=== PATIENT | male | born 1940 | race Caucasian/White ===

== ENCOUNTER 2018-07-05 13:47 | Emergency (ER) | payer MEDICAID, MEDICARE ==
--- NOTE | 2018-07-05 15:55 | ED ---
Throat Pain/Nasal Congestion - HPI Summary HPI Summary: 77-year-old male presents with a week's worth of right-sided jaw pain. He states that the pain is worst when he chews. He has been chewing more frequently. He states the pain seemed to radiate superficially around his ear. He denies any headache. No dizziness. No chest pain or shortness breath. No weakness or numbness into his arms. Denies any midline neck pain. No injury. Pain is not worse with head movement. He states that popping or locking in his jaw. He did see his dentist last week for dental cleaning. He denies any dental pain. He does have follow-up with the dentist next week. He has been taking Tylenol for his pain. He states pain is worse when he talks. Denies any change in vision or hearing. - History of Current Complaint Chief Complaint: EDNeckComplaint Time Seen by Provider: 07/05/18 15:03 - Allergies/Home Medications Allergies/Adverse Reactions: Allergies Allergy/AdvReac Type Severity Reaction Status Date / Time No Known Allergies Allergy Verified 07/05/18 15:37 Home Medications: Home Medications Acetaminophen TAB* [Tylenol TAB*] 325 mg PO Q4H PRN 07/05/18 [History Confirmed 07/05/18] Aspirin 81 mg CHEW TAB* [Aspirin Low Dose TAB*] 81 mg PO DAILY 07/05/18 [ History Confirmed 07/05/18] Tamsulosin CAP* [Flomax CAP*] 0.4 mg PO DAILY 07/05/18 [History Confirmed ] PMH/Surg Hx/FS Hx/Imm Hx Endocrine/Hematology History: Denies: Hx Anticoagulant Therapy Cardiovascular History: Denies: Hx Hypertension - Immunization History Immunizations Up to Date: Yes Infectious Disease History: No Infectious Disease History: Denies: Traveled Outside the [place] in Last 30 Days - Family History Known Family History: Positive: Cardiac Disease - Social History Alcohol Use: None Substance Use Type: Reports: None Smoking Status (MU): Former Smoker Review of Systems Negative: Fever Positive: Other - right side jaw pain Negative: Chest Pain Negative: Shortness Of Breath All Other Systems Reviewed And Are Negative: Yes Physical Exam Triage Information Reviewed: Yes Vital Signs On Initial Exam: Initial Vitals Temp Pulse Resp BP Pulse Ox 98.3 F 89 20 128/110 97 07/05/18 13:59 07/05/18 13:59 07/05/18 13:59 07/05/18 13:59 07/05/18 13:59 Vital Signs Reviewed: Yes Appearance: Positive: Well-Appearing Skin: Positive: Warm, Dry Head/Face: Positive: Normal Head/Face Inspection, TMJ Tenderness - right. Negative: Temporal Artery Tenderness, Scalp Eyes: Positive: Normal, EOMI, AVA, Conjunctiva Clear ENT: Positive: Normal ENT inspection, Pharynx normal, Nasal drainage Dental: Positive: Gross Decay/Caries @ - throughout Neck: Positive: Supple, Nontender, No Lymphadenopathy, Other: - tenderness greatest over TMJ when opens jaw and feel popping present Respiratory/Lung Sounds: Positive: Clear to Auscultation, Breath Sounds Present Cardiovascular: Positive: Normal, RRR Musculoskeletal: Positive: Strength/ROM Intact - neck and upper extremities, Other - good engagement executive strength Neurological: Positive: Normal, Reflexes Intact - biceps Psychiatric: Positive: Normal Diagnostics - Vital Signs Vital Signs Temp Pulse Resp BP Pulse Ox 07/05/18 13:59 98.3 F 89 20 128/110 97 - Laboratory Lab Statement: Any lab studies that have been ordered have been reviewed, and results considered in the medical decision making process. EENT Course/Dx - Course Course Of Treatment: 77-year-old male presents with a week's worth of right- sided jaw pain. He states that the pain is worst when he chews. He has been chewing more frequently. He states the pain seemed to radiate superficially around his ear. He denies any headache. No dizziness. No chest pain or shortness breath. No weakness or numbness into his arms. Denies any midline neck pain. No injury. Pain is not worse with head movement. He states that popping or locking in his jaw. He did see his dentist last week for dental cleaning. He denies any dental pain. He does have follow-up with the dentist next week. He has been taking Tylenol for his pain. He states pain is worse when he talks. Denies any change in vision or hearing. On exam has no tenderness over the temporal artery. Normal neuro exam. Tenderness over TMJ. Pain with movement of jaw. No focal deficits. Do not suspect dissection or temporal arterities. Belly pain is likely due to TMJ. We'll have follow-up with dentist and primary. Patient understands and agrees with plan. - Differential Diagnoses Differential Diagnoses: Temporal Arteritis, TMJ Syndrome, Other - disecction - Diagnoses Provider Diagnoses: Jaw pain Discharge - Sign-Out/Discharge Documenting (check all that apply): Patient Departure - Discharge Plan Condition: Good Disposition: HOME Patient Education Materials: Temporomandibular Disorder (ED) Referrals: Mariusz Freeman MD [Primary Care Provider] - Additional Instructions: eat softer foods Take acetaminophen every 6 hours as needed for pain Follow up with dentist as scheduled Follow up with primary within 5 days as blood pressure is elevated at this visit Return to ED if develop any new or worsening symptoms - Billing Disposition and Condition Condition: GOOD Disposition: Home
[2018-07-05 16:13] VITALS: BP 146/90
== END 2018-07-05 16:11 | disposition home or self-care (01) ==
LOC: ED 13:47
DX: R68.84 Jaw pain (principal); Z87.891 Personal history of nicotine dependence
CPT/HCPCS: 99282

== ENCOUNTER 2018-07-17 11:50 | Inpatient (IN) | payer MEDICARE ==
[2018-07-17 12:36] LABS: ABS Basophils 0 10^3/ul (0-0.2); ABS Eosinophils 0.1 10^3/ul (0-0.6); ABS Monocytes 0.4 10^3/ul (0-0.8); ABS Neutrophils 6.4 10^3/ul (1.5-7.7); ABS Nucleated RBC 0 10^3/ul; Eosinophil % 0.7 % (0-6); Hematocrit 47 % (42-52); Hemoglobin 16.2 g/dl (14.0-18.0); Lymphocyte % 12.7 % (25-47); Mean Corpuscular HGB Conc 35 g/dl (31-36); Mean Corpuscular Hemoglobin 34 pg (27-31); Mean Corpuscular Volume 98 fL (80-94); Mean Platelet Volume 6.7 um3 (7.4-10.4); Nucleated Red Blood Cells % 0.1; Platelet Count 382 10^3/ul (150-450); Red Blood Count 4.73 10^6/ul (4.00-5.40); Red Cell Distribution Width 13 % (10.5-15); White Blood Count 7.9 10^3/ul (3.5-10.8)
[2018-07-17 12:45] LABS: INR 0.98 (0.77-1.02)
[2018-07-17 12:52] LABS: EGFR Non-African American 91.9 (>60)
--- NOTE | 2018-07-17 12:55 | RAD ---
Indication: Facial droop. CT of the brain performed without IV contrast. Ventriculomegaly consistent with central atrophy is noted. No midline shift is noted. Prominent extra-axial spaces are noted. There is no evidence of intracranial mass or hemorrhage. No other high or low density lesions are identified. Mastoid air cells and paranasal sinuses are otherwise unremarkable. IMPRESSION: Central and cortical atrophy. No intracranial mass or hemorrhage is noted.
--- NOTE | 2018-07-17 13:02 | ED ---
Neurological HPI - HPI Summary HPI Summary: This patient is a 77 year old M presenting to [facility] with a chief complaint of a neurological deficit since 30 hours ago. Patient reports right sided jaw pain ( 10 days ago), neck pain, right facial droop (30 hours ago), slurred speech ( yesterday), and difficulty putting a spoon in his mouth (yesterday). Patient denies difficulty moving his right arm. - History of Current Complaint Chief Complaint: EDNeurologicalDeficit Stated Complaint: RT SIDE FACIAL NUMBNESS Time Seen by Provider: 07/17/18 12:04 Hx Obtained From: Patient Onset/Duration: Sudden Onset, Started days ago - 30 hours ago, Still Present Neurological Deficit Location: Generalized - Loss of coordination, Facial - Facial droop Pain Intensity: 0 Associated Signs and Symptoms: Positive: Pain - Right sided jaw pain and neck pain, Impaired Speech - Slurred speech - Allergy/Home Medications Allergies/Adverse Reactions: Allergies Allergy/AdvReac Type Severity Reaction Status Date / Time No Known Allergies Allergy Verified 07/17/18 12:20 Home Medications: Home Medications Finasteride TAB* [Proscar TAB*] 5 mg PO DAILY 07/17/18 [History Confirmed ] Gabapentin 300 mg PO TID 07/17/18 [History Confirmed 07/17/18] PMH/Surg Hx/FS Hx/Imm Hx Endocrine/Hematology History: Denies: Hx Anticoagulant Therapy Cardiovascular History: Denies: Hx Hypertension Infectious Disease History: No Infectious Disease History: Denies: Traveled Outside the [place] in Last 30 Days - Family History Known Family History: Positive: Cardiac Disease - Social History Occupation: Retired Lives: With Family Alcohol Use: None Substance Use Type: Reports: None Smoking Status (MU): Former Smoker Review of Systems Positive: Other - Right sided jaw pain and neck pain. Neurological: Other - Right facial droop and difficulty Positive: Slurred Speech All Other Systems Reviewed And Are Negative: Yes Physical Exam - Summary Physical Exam Summary: General: well-appearing, no pain distress Skin: warm, color reflects adequate perfusion, dry, No rash. Head: normal. Right facial droop which includes the forehead, and his right eyelid drifts open before the left eyelid and closes after the left eyelid. He has no sensation deficit on either side of the face. He has mild tenderness to palpation at the angle of the jaw, at the TMJ, in the right ear canal and right parietal and occipital area. Eyes: EOMI, AVA. 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 ENT: normal, TM is normal Neck: supple, nontender Respiratory: CTA, breath sounds present Cardiovascular: RRR Abdomen: soft, nontender Bowel: present Musculoskeletal: normal, strength/ROM intact Neurological: sensory/motor intact, A&O x3, GCS 15, No difficulty with speech. Psychological: affect/mood appropriate Triage Information Reviewed: Yes Vital Signs On Initial Exam: Initial Vitals Temp Pulse Resp BP Pulse Ox 97 F 88 16 172/121 97 07/17/18 11:53 07/17/18 11:53 07/17/18 11:53 07/17/18 11:53 07/17/18 11:53 Vital Signs Reviewed: Yes Diagnostics - Vital Signs Vital Signs Temp Pulse Resp BP Pulse Ox 07/17/18 11:53 97 F 88 16 172/121 97 - Laboratory Result Diagrams: 07/17/18 12:26 07/17/18 12:26 Lab Statement: Any lab studies that have been ordered have been reviewed, and results considered in the medical decision making process. - Radiology Chest X-Ray Radiology Interpretation Completed By: Radiologist - 13:12. NO ACTIVE CARDIOPULMONARY DISEASE IS NOTED. ED Physician has reviewed this imaging report. - CT Brain CT CT Interpretation Completed By: Radiologist - 12:52. Central and cortical atrophy. No intracranial mass or hemorrhage is noted. ED Physician has reviewed this imaging report. Head CTA CT Interpretation Completed By: Radiologist - 17:11. Atherosclerosis of the origin of the left internal carotid artery. No significant carotid artery stenosis is noted. No evidence of carotid artery dissection is noted. Intracranial circulation demonstrates no evidence of aneurysmal dilatation or branch occlusion. ED Physician has reviewed this imaging report. - EKG 12:38 Cardiac Rate: NL - 90 BPM EKG Rhythm: Sinus Rhythm ST Segment: Normal Ectopy: None Course/Dx - Course Course Of Treatment: CONSULTED DR BRICEÑO, NEUROLOGY, WHO SAW THE PATIENT IN THE ED. ADMIT HOSPITALIST. - Diagnoses Provider Diagnoses: Left-sided Caceres's palsy, Headache, Gait difficulty - Physician Notifications Discussed Care Of Patient With: Josephine Briceño - Neurology Time Discussed With Above Provider: 13:31 Instructed by Provider To: MD Will See In ED Discharge - Sign-Out/Discharge Documenting (check all that apply): Patient Departure All imaging exams completed and their final reports reviewed: Yes - Discharge Plan Condition: Stable Disposition: ADMITTED TO [facility] - Billing Disposition and Condition Condition: STABLE Disposition: Admitted to [facility] - Attestation Statements Document Initiated by Scribe: Yes Documenting Scribe: Patel Riojas Provider For Whom Scribe is Documenting (Include Credential): Lionel Baez Scribe Attestation: Patel Isbell, scribed for Lionel Baez on 07/17/18 at 2120. Scribe Documentation Reviewed: Yes Provider Attestation: The documentation as recorded by the Patel bird accurately reflects the service I personally performed and the decisions made by me, Lionel Baez Consult Consult: 15:27. Informed Lori Ferguson MD, hospitalist, of the patient's symptoms and Dr. Briceño's interpretation of the case. Dr. Ferguson will admit the patient.
--- NOTE | 2018-07-17 13:15 | RAD ---
Indication: Right facial injury. Single frontal view of the chest performed at 1245 hours was reviewed. No prior study is available for comparison. No mediastinal shift is noted. Heart is of normal size and configuration. Lung saleem appear clear. IMPRESSION: NO ACTIVE CARDIOPULMONARY DISEASE IS NOTED.
[2018-07-17] MEDS ORDERED: Aspirin TAB* 325 MG PO ONE (15:21)
[2018-07-17] MEDS ORDERED: Iohexol 350* (CONTRAST) 500 ML MDV IV ONE (15:34)
[2018-07-17] MEDS ORDERED: Cyanocobalamin INJ * 1,000 MCG/ML VIAL 1 ML VIAL IM ONE (17:09)
--- NOTE | 2018-07-17 17:15 | RAD ---
Indication: Right facial droop. Contrast: Administered 80.1 ml of OMNIPAQUE 350 mg/ml CTA of the neck and head was performed after IV contrast administration. Coronal and sagittal reconstructed images were obtained. The great vessel and aortic arch demonstrates a common origin of left common carotid artery and innominate artery. The common carotid artery bilaterally are grossly unremarkable. Minimal plaque is noted at the origin of the left internal carotid arteries. The right internal carotid artery demonstrates no significant plaque. No evidence of carotid artery dissection is noted. Vertebral arteries are patent. Dominant left vertebral artery is noted. Intracranial circulation demonstrates no evidence of branch occlusion. No evidence of aneurysmal dilatation is noted. Vertebral artery, basilar artery and posterior cerebral arteries demonstrate no evidence of branch occlusion or aneurysmal dilatation. The visualized soft tissues of the neck demonstrates no evidence of abnormal adenopathy. Submandibular glands are grossly unremarkable. No focal masses are identified. IMPRESSION: Atherosclerosis of the origin of the left internal carotid artery. No significant carotid artery stenosis is noted. No evidence of carotid artery dissection is noted. Intracranial circulation demonstrates no evidence of aneurysmal dilatation or branch occlusion.
[2018-07-17] MEDS: Acetaminophen TAB* 325 MG PO PRN ×2 (17:21→23:24)
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
[2018-07-17] MEDS: Aspirin 81 mg CHEW TAB* 81 MG TAB.CHEW PO SCH ×2 (20:07→20:09)
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
[2018-07-17] MEDS: Heparin VIAL(*) 5000 UNITS/ML VIAL (FIVE THOUSAND) SUBCUT SCH (20:32)
[2018-07-17] MEDS: Gabapentin CAP(*) 300 MG PO SCH (20:40)
[2018-07-17] MEDS ORDERED: Gabapentin CAP(*) 300 MG PO ONE (21:00)
[2018-07-17] MEDS ORDERED: Gabapentin CAP(*) 300 MG PO SCH (21:00)
[2018-07-17] MEDS ORDERED: traMADol TAB* 50 MG PO ONE (22:09)
[2018-07-18] MEDS ORDERED: hydrALAZINE IV* 20 MG/ML VIAL IV SLOW PU PRN (00:56)
[2018-07-18] MEDS: Morphine INJ* 2 MG/ML 1 ML SYRINGE (TWO MG - NEW SYRINGE VERSION) IV PRN (01:05)
[2018-07-18] MEDS: amLODIPine TAB* 5 MG PO SCH ×2 (01:09→09:46)
[2018-07-18] MEDS: Heparin VIAL(*) 5000 UNITS/ML VIAL (FIVE THOUSAND) SUBCUT SCH ×3 (05:50→20:57)
[2018-07-18] MEDS: Gabapentin CAP(*) 300 MG PO SCH ×3 (09:45→20:57)
[2018-07-18] MEDS: Finasteride TAB* 5 MG PO SCH (09:45)
[2018-07-18] MEDS: Acetaminophen TAB* 325 MG PO PRN ×2 (09:45→20:56)
[2018-07-18] MEDS: Aspirin 81 mg CHEW TAB* 81 MG TAB.CHEW PO SCH (09:46)
[2018-07-18] MEDS: Cyanocobalamin INJ * 1,000 MCG/ML VIAL 1 ML VIAL IM SCH (09:46)
[2018-07-18 11:12] LABS: Urine Appearance Cloudy; Urine Blood 3+ (Negative); Urine Color Yellow; Urine Ketones 1+ (Negative); Urine Protein 2+(100 mg/dL) (Negative); Urine Red Blood Cell 3+(>10/hpf) (Absent); Urine Specific Gravity 1.019 (1.010-1.030); Urine Urobilinogen Positive (Negative); Urine White Blood Cell 3+(>20/hpf) (Absent)
[2018-07-18] MEDS ORDERED: Perflutren Lipid Microsphere* 3 ML VIAL ONE (13:14)
--- NOTE | 2018-07-18 14:13 | PN ---
Subjective Date of Service: 07/18/18 Interval History: Pt noted progressive problems with unsteady gait for at least a month. R facial drop had been present x 1 week. Today pt denies pain Objective Active Medications: Acetaminophen (Tylenol Tab*) 650 mg PO Q6H PRN PRN Reason: PAIN Last Admin: 07/18/18 09:45 Dose: 650 mg Amlodipine Besylate (Norvasc Tab*) 10 mg PO DAILY [facility] Last Admin: 07/18/18 09:46 Dose: 10 mg Aspirin (Aspirin 81 Mg Chew Tab*) 81 mg PO DAILY [facility] Last Admin: 07/18/18 09:46 Dose: 81 mg Cyanocobalamin (Vitamin B12 Inj *) 1,000 mcg IM DAILY [facility] Stop: 07/23/18 23:59 Last Admin: 07/18/18 09:46 Dose: 1,000 mcg Finasteride (Proscar Tab*) 5 mg PO DAILY [facility] Last Admin: 07/18/18 09:45 Dose: 5 mg Gabapentin (Neurontin Cap(*)) 900 mg PO TID [facility] Last Admin: 07/18/18 09:45 Dose: 900 mg Heparin Sodium (Porcine) (Heparin Vial(*)) 5,000 units SUBCUT Q8HR [facility] Last Admin: 07/18/18 05:50 Dose: 5,000 units Hydralazine HCl (Apresoline Iv*) 10 mg IV SLOW PU Q2H PRN PRN Reason: SYSTOLIC BP GREATER THAN: Morphine Sulfate (Morphine Inj ((Syringe))*) 2 mg IV Q2H PRN PRN Reason: PAIN Last Admin: 07/18/18 01:05 Dose: 2 mg Nystatin (Nystatin Top Powder*) 1 applic TOPICAL TID [facility] Vital Signs - 8 hr 07/18/18 07/18/18 07/18/18 07:21 09:45 11:05 Temperature 97.9 F 98.1 F Pulse Rate 107 99 Respiratory 20 16 16 Rate Blood Pressure 164/98 133/101 (mmHg) O2 Sat by Pulse 97 96 Oximetry 07/18/18 11:34 Temperature Pulse Rate Respiratory 16 Rate Blood Pressure (mmHg) O2 Sat by Pulse Oximetry Oxygen Devices in Use Now: None Appearance: 78 yo M in nAD, aAOx3 Eyes: No Scleral Icterus, - - R eye cloudy -chronic Ears/Nose/Mouth/Throat: NL Teeth, Lips, Gums, Mucous Membranes Moist Neck: NL Appearance and Movements; NL JVP, Trachea Midline Respiratory: Symmetrical Chest Expansion and Respiratory Effort, Clear to Auscultation Cardiovascular: NL Sounds; No Murmurs; No JVD, RRR Abdominal: NL Sounds; No Tenderness; No Distention Lymphatic: No Cervical Adenopathy Extremities: No Edema, No Clubbing, Cyanosis Skin: No Rash or Ulcers, No Nodules or Sclerosis Neurological: Alert and Oriented x 3, - - R sided Caceres's palsy, motor 5/5 b/l, wide unsteady gait Result Diagrams: 07/17/18 12:26 07/17/18 12:26 Assess/Plan/Problems-Billing Assessment: 78 yo M with h/o indwelling Stone x 1 month and worsening of unsteadiness noted to have R facial droop and R neck pain on presentation to ED that had been ongoing for at lest a week prior - Patient Problems (1) Facial droop Comment: 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 D/w Dr. De Leon. cont PT (2) Unsteady gait Comment: Likely neuro symptom of severe Vit B12 defficiency will start daily Vit B12 injections cont PT Likely diet related, but will check MMA level and anti-intrinsic factor antibody to r/o pernicious anemia (3) Stone catheter in place Comment: h/o retention x 1 month , cont finasteride (4) Vitamin B 12 deficiency Comment: severe with neuro symptoms. Tx as above. Cont PT/OT -will jesusley need STR (5) HTN (hypertension) Comment: started on Norvasc (6) DVT prophylaxis Comment: HSQ Status and Disposition: inpatient
--- NOTE | 2018-07-18 14:34 | ECHO ---
Patient: EVA HOOKS [facility] Rec#: [id number] : 1940 Date: 07/18/2018 Age: 78y Height: 185.4 cm / 73.0 in Weight: 98 kg / 216.0 lbs Sex: M BSA: 2.22 Room#: 433 Admit Date#: 07/17/2018 Type: Inpatient Referring: Alley Butts NP Reading: Bernadine Gates MD Retail Shift Supervisor: Araceli Grayson RN RDCS CC: Mariusz Freeman MD Transthoracic Echocardiogram Indication: CVA BP: 142/98 HR: 78 Rhythm: NSR with PVCs Findings History: [place], BPH Technical Comments: The study is technically limited due to poor acoustic windows. Left Ventricle: The left ventricle is not well visualized. The left ventricular chamber size is normal. Septal wall hypertrophy is observed.grossly normal wall motion. The estimated ejection fraction is 45-50%. There is an E to A reversal in the mitral valve flow pattern suggestive of diastolic dysfunction. Left Atrium: The left atrial chamber size is normal. Right Ventricle: The right ventricle wall thickness is mildly increased. The right ventricular cavity size is normal. The right ventricular global systolic function is low normal. Right Atrium: The right atrium is slightly dilated. A patent foramen ovale is not demonstrated by color Doppler. The imaging for the bubble study was suboptimal and it cannot be interpreted. Aortic Valve: The aortic valve leaflets are mildly thickened. There is no evidence of aortic regurgitation. There is no evidence of aortic stenosis. Mitral Valve: The mitral valve leaflets are mildly thickened. There is no evidence of mitral regurgitation. There is no evidence of mitral stenosis. Tricuspid Valve: The tricuspid valve structure is not well visualized. There is no evidence of tricuspid valve regurgitation. There is no tricuspid stenosis. Pulmonic Valve: The pulmonic valve structure is not well visualized. Pericardium: There is no significant pericardial effusion. A pericardial fat pad is visualized. Aorta: There is mild dilatation of the ascending aorta.at 3.7 cm. There is no dilatation of the aortic arch. There is moderate dilatation of the aortic root.at 4.2 cm. Pulmonary Artery: The main pulmonary artery is not well visualized. Venous: The inferior vena cava appears normal in size. There is a greater than 50% respiratory change in the inferior vena cava dimension. Contrast: Normal saline was used as contrast for the bubble study. Images 101 and 102. A total of 4 ml of diluted Definity was given IV to try to enhance endocardial border definition. Conclusions Septal wall hypertrophy is observed.grossly normal wall motion. The estimated ejection fraction is 50%. There is an E to A reversal in the mitral valve flow pattern suggestive of diastolic dysfunction. The right ventricle wall thickness is mildly increased. The right ventricular global systolic function is low normal. The imaging for the bubble study was suboptimal and it cannot be interpreted. The aortic valve leaflets are mildly thickened with normal function. There is mild dilatation of the ascending aorta.at 3.7 cm. No prior echo to compare. Consider LUCIA if clinically indicated to evaluate for cardiopulmonary shuting or other cardioembolic source. Measurements Name Value Normal Range RVDdMajor (2D) 3.1 cm (2.2 - 4.4) RVAW (2D) 0.7 cm (0.2 - 0.5) RAd ISD 4CH 5.2 cm (3.4 - 4.9) RA (A4C)W 3.8 cm (2.9 - 4.6) IVSd (2D) 1.5 cm (0.6 - 1) LVPWd (2D) 1 cm (0.6 - 1) LVIDd (2D) 4 cm (3.6 - 5.4) LVIDs (2D) 3.5 cm - LV FS (2D) 14 % (25 - 45) Aortic Annulus 2.5 cm (1.4 - 2.6) Ao root diameter (2D) 4.2 cm (2.1 - 3.5) Ascending Ao 3.7 cm (2.1 - 3.4) Aortic arch 2.7 cm (1.8 - 3.4) LA dimension (AP) 2D 3.4 cm (2.3 - 3.8) LAd ISD 4CH 5.3 cm (2.9 - 5.3) LA ISD 4CH W 4.3 cm (2.5 - 4.5) Name Value Normal Range LA ESV SP 4CH (A/L) 51 ml - LA ESV SP 2CH (A/L) 53 ml - LA ESV BP (A/L) 53 ml - LA ESV BP (A/L) index 23.6 ml/m2 - LA ESV SP 4CH (MOD) 49 ml - LA ESV SP 2CH (MOD) 50 ml - Name Value Normal Range MV E-wave Vmax 0.4 m/sec - MV deceleration time 143 msec - MV A-wave Vmax 0.92 m/sec - MV E:A ratio 0.44 ratio - LV septal e' Vmax 0.05 m/sec - LV lateral e' Vmax 0.07 m/sec - LV E:e' septal ratio 8 ratio - LV E:e' lateral ratio 5.7 ratio - Name Value Normal Range AV Vmax 1.1 m/sec - AV VTI 20.3 cm - AV peak gradient 4.7 mmHg - AV mean gradient 2.8 mmHg - LVOT Vmax 0.79 m/sec - LVOT VTI 19.1 cm - LVOT peak gradient 2.5 mmHg - LVOT mean gradient 1.7 mmHg - ORION Vmax 0.72 m/sec - Name Value Normal Range IVC diameter 1.4 cm - Name Value Normal Range PV Vmax 0.61 m/sec -
[2018-07-18] MEDS: Nystatin TOP POWDER* 15 GM BTL TOPICAL SCH ×2 (14:54→20:59)
[2018-07-18] MEDS: cefTRIAXone(*) 1 GM in NS 0.9% 50 ML* 50 ML IVPB SCH (18:27)
--- NOTE | 2018-07-18 19:34 | PN ---
CC: Dr. Mariusz Freeman * PROGRESS NOTE: DATE OF SERVICE: 07/18/18. HISTORY: Overnight Doyle Jefferson noted that his headaches did improve with Tylenol and aspirin last night. It is starting to return. He thought like his face was firming up a little bit, but then this morning continues to notice difficulty with weakness. He denies any new symptoms of change of vision, numbness, weakness of arms or legs. MEDICATIONS: Include: 1. Acetaminophen 650 mg p.o. q.6 hours p.r.n. pain. 2. Aspirin 81 mg p.o. daily. 3. Gabapentin 900 mg p.o. t.i.d. 4. Heparin 5000 units subcu q.8 hours. 5. Morphine 2 mg IV q.2 hours. 6. Hydralazine 10 mg IV q.2 hours p.r.n. systolic blood pressure greater than 170. 7. Amlodipine 10 mg p.o. daily. 8. Vitamin B12 injections 1000 mcg IM daily. 9. Proscar 5 mg p.o. daily. ALLERGIES: He has no known drug allergies. PHYSICAL EXAMINATION: On examination, his temperature was 98 degrees Fahrenheit. He had regular cardiac rhythm with a pulse of 99, respiratory rate was 16, his blood pressure was 142/98, last night it was as high as 168/111, and yesterday afternoon in the ER up to 184/120. He was saturating 98% on room air. He had a regular cardiac rhythm. His lungs were clear to auscultation. There was no evidence of rash. He was awake, alert, and where he was located was tired after at night with some decrease in sleep. Had normal language function. He is blind in his right eye and his left eye had full extraocular movements, full saleem to confrontation. 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 There was a right pronator drift. He otherwise was strong in his upper and lower extremities with good [id number] and heel-to- huynh movements. He was able to stand, walk with a walker with his feet 1 foot apart. LABORATORY DATA: Data includes troponin of 0.01, C-reactive protein 3.83, lipid profile with total cholesterol 150, LDL 94, triglycerides 131, HDL 29.8, his vitamin B12 level was 72, folate was 13.7, TSH 1.04. A CTA of the brain and neck showed no evidence of dissection, occlusion or aneurysm. IMPRESSION AND PLAN: An 78-year-old gentleman with history of almost 1 month of progressive neck and head pain, now developing right facial weakness with further decline in gait. Differential diagnosis is wide. Given the unusual presentation of facial weakness over a long duration one must question underlying infection such as Lyme disease or underlying injury, which could have contributed. MRI of the brain is pending for tomorrow. Ischemic lesion is on differential diagnosis given the acute decline, which led to admission yesterday. An MRI will give further information. Echocardiogram is pending. He is on telemetry. He is on aspirin and further evaluation and treatment of stroke will depend on results of studies. In addition, he has been found to have profound decrease in B12 and is undergoing further workup with methylmalonic acid level, intrinsic factor. He has been started on B12 supplementation. He does admit his diet is poor. This may be contributing to some of the cognitive decline and balance decline. In the differential diagnosis was vasculitis, his sedimentation rate and C- reactive protein were within normal limits making this less likely. There was no evidence of vasculitis was seen on CTA. His BOAZ is pending. Possibility of infection contributing is raised and urinalysis is being sent as well as Lyme. Overall, I am concerned about his instability and ability to function alone in the setting of cognitive change, decreased balance, weakness. Accordingly, he needs not only physical therapy and occupational therapy evaluation, but also social work involvement. Differential diagnosis does include an idiopathic Caceres's palsy, however, it is an unusual presentation. At this point, he would not be a candidate for antivirals given the length of symptoms. We have held up on steroids given other differential diagnosis, which could result in steroids being contraindicated. Over 30 minutes was spent in direct [id number] the patient's care. We will have the Neurology team continue to follow with you. [id number]/SERGEY #: [id number] MADINA
[2018-07-19] MEDS: Heparin VIAL(*) 5000 UNITS/ML VIAL (FIVE THOUSAND) SUBCUT SCH ×3 (05:27→22:26)
[2018-07-19] MEDS: Gabapentin CAP(*) 300 MG PO SCH ×3 (07:35→20:25)
[2018-07-19] MEDS: Acetaminophen TAB* 325 MG PO PRN ×2 (07:36→20:24)
[2018-07-19] MEDS: Cyanocobalamin INJ * 1,000 MCG/ML VIAL 1 ML VIAL IM SCH (07:37)
[2018-07-19] MEDS: Finasteride TAB* 5 MG PO SCH (07:37)
[2018-07-19] MEDS: Aspirin 81 mg CHEW TAB* 81 MG TAB.CHEW PO SCH (07:37)
[2018-07-19] MEDS: amLODIPine TAB* 5 MG PO SCH (07:37)
[2018-07-19] MEDS: Nystatin TOP POWDER* 15 GM BTL TOPICAL SCH ×3 (07:37→20:29)
[2018-07-19 07:44] LABS: EGFR Non-African American 84.4 (>60)
[2018-07-19] MEDS ORDERED: Metoprolol Tartrate TAB* 25 MG PO SCH (09:00)
--- NOTE | 2018-07-19 13:54 | RAD ---
Indication: Right facial weakness. Sagittal and axial T1, axial T2, FLAIR, diffusion and susceptibility weighted images of the brain were obtained. Ventricular structures are midline. No midline shift is noted. There is central and cortical atrophy noted. There is no restriction of diffusion on diffusion-weighted images. The brainstem and posterior fossa are otherwise unremarkable. FLAIR images demonstrate likely chronic microvascular change involving the left basal ganglia and right occipital white matter. No other intracranial mass or hemorrhage is noted. No evidence of susceptibility artifact is noted. The orbits and paranasal sinuses are otherwise unremarkable. IMPRESSION: Central and cortical atrophy with mild chronic ischemic White matter change. No evidence of restriction of diffusion is noted. No acute changes are noted.
[2018-07-19] MEDS ORDERED: Metoprolol Tartrate TAB* 25 MG PO ONE (13:55)
--- NOTE | 2018-07-19 14:39 | PN ---
Subjective Date of Service: 07/19/18 Interval History: Pt feels well, no new complaints. continues to have R facial palsy. seen with his sister who is visiting Noted to have asymptomatic 20 beats of V. tach today Objective Active Medications: Acetaminophen (Tylenol Tab*) 650 mg PO Q6H PRN PRN Reason: PAIN Last Admin: 07/19/18 07:36 Dose: 650 mg Aspirin (Aspirin 81 Mg Chew Tab*) 81 mg PO DAILY [facility] Last Admin: 07/19/18 07:37 Dose: 81 mg Cyanocobalamin (Vitamin B12 Inj *) 1,000 mcg IM DAILY [facility] Stop: 07/23/18 23:59 Last Admin: 07/19/18 07:37 Dose: 1,000 mcg Finasteride (Proscar Tab*) 5 mg PO DAILY [facility] Last Admin: 07/19/18 07:37 Dose: 5 mg Gabapentin (Neurontin Cap(*)) 900 mg PO TID [facility] Last Admin: 07/19/18 13:31 Dose: 900 mg Heparin Sodium (Porcine) (Heparin Vial(*)) 5,000 units SUBCUT Q8HR [facility] Last Admin: 07/19/18 13:32 Dose: 5,000 units Hydralazine HCl (Apresoline Iv*) 10 mg IV SLOW PU Q2H PRN PRN Reason: SYSTOLIC BP GREATER THAN: Ceftriaxone Sodium 1 gm/ (Sodium Chloride) 50 mls @ 200 mls/hr IVPB Q24H [facility] Last Admin: 07/18/18 18:27 Dose: 200 mls/hr Metoprolol Tartrate (Lopressor Tab*) 25 mg PO Q12HR [facility] Morphine Sulfate (Morphine Inj ((Syringe))*) 2 mg IV Q2H PRN PRN Reason: PAIN Last Admin: 07/18/18 01:05 Dose: 2 mg Nystatin (Nystatin Top Powder*) 1 applic TOPICAL TID [facility] Last Admin: 07/19/18 13:32 Dose: 1 applic Vital Signs - 8 hr 07/19/18 07/19/18 07/19/18 07:34 07:35 08:00 Temperature 97.9 F Pulse Rate 98 Respiratory 16 16 16 Rate Blood Pressure 153/107 (mmHg) O2 Sat by Pulse 97 Oximetry 07/19/18 07/19/18 09:11 13:31 Temperature Pulse Rate Respiratory 16 16 Rate Blood Pressure (mmHg) O2 Sat by Pulse Oximetry Oxygen Devices in Use Now: None Appearance: 78 yo M in nAD, AAOx3 Eyes: No Scleral Icterus, - - R cornea cludy Ears/Nose/Mouth/Throat: NL Teeth, Lips, Gums, Mucous Membranes Moist Neck: NL Appearance and Movements; NL JVP, Trachea Midline Respiratory: Symmetrical Chest Expansion and Respiratory Effort, Clear to Auscultation Cardiovascular: NL Sounds; No Murmurs; No JVD, RRR Abdominal: NL Sounds; No Tenderness; No Distention, No Hepatosplenomegaly Lymphatic: No Cervical Adenopathy Extremities: No Edema, No Clubbing, Cyanosis Skin: No Rash or Ulcers, No Nodules or Sclerosis Neurological: Alert and Oriented x 3, - - R Caceres's palsy. Motor 5/5 b/l speech clear Result Diagrams: 07/17/18 12:26 07/19/18 06:29 Assess/Plan/Problems-Billing Assessment: 78 yo M with h/o indwelling Stone x 1 month and worsening of unsteadiness noted to have R facial droop and R neck pain on presentation to ED that had been ongoing for at lest a week prior - Patient Problems (1) Facial droop Comment: appears to be due to Caceres's palsy Lyme testing pending MRI done , read pending due to onset of symptoms over a week ago there would be no clear benefit of tx with steroids or antivirals. D/w . EMG tomorrow cont PT (2) Unsteady gait Comment: Likely neuro symptom of severe Vit B12 defficiency cont daily Vit B12 injections cont PT Likely diet related, but MMA level and anti-intrinsic factor antibody to r/o pernicious anemia pending (3) Stone catheter in place Comment: h/o retention x 1 month , cont finasteride (4) Vitamin B 12 deficiency Comment: severe with neuro symptoms. Tx as above. Cont PT/OT -willneed STR (5) HTN (hypertension) Comment: started on Norvasc, but continues to be tachycardic and now with one episode of V. tach. will start lopressor, d/c Norvasc. cont telem Echo showed EF 45-50% (6) UTI (urinary tract infection) Comment: cx pending Ceftriaxone started Stone exchanged on 07/18/18 (7) DVT prophylaxis Comment: HSQ Status and Disposition: inpatient
[2018-07-19] MEDS: cefTRIAXone(*) 1 GM in NS 0.9% 50 ML* 50 ML IVPB SCH (17:37)
[2018-07-19] MEDS: Metoprolol Tartrate TAB* 25 MG PO SCH (20:25)
--- NOTE | 2018-07-19 23:04 | PN ---
NEUROLOGICAL FOLLOWUP NOTE: DATE OF VISIT: 07/19/18 HISTORY: This is an 78-year-old man being evaluated for his Caceres's palsy that has been on for at least 10 days' time as well as his gait disorder. It is unclear how long this has been going on, but 2 months ago his sister and family came to visit and he was walking well and went out to dinner with them. Two weeks ago, he seemed unsteady in his apartment. It was unclear how bad he was in the past. In the hospital, he is in danger of falling. It is unclear how long this has been going on for, but it is relatively recent development he has had. He is blind in his right eye. Longstanding, he has had some right jaw pain that is predates the apparent Caceres's palsy. MEDICATIONS: Include: 1. Lopressor 25 mg q.12 hours. 2. Gabapentin 900 t.i.d. 3. He is now on B12 1000 mcg IM daily at this point. 4. Ceftriaxone. 5. Aspirin 81 mg daily. He has no other complaints. PHYSICAL EXAMINATION: Temperature 97.9, pulse 98, respiratory rate 16, blood pressure 153/107. He is alert and oriented with normal speech and comprehension. He has a right Caceres's palsy. Vision, he is blind in the right eye that is chronic. He has normal eye findings on the left. Finger to nose was intact. He was quite unsteady and had a positive Romberg and a wide-based stance. It is hard for him to walk and he could not walk without assistance. He had trace weakness throughout. He had a decrease vibration in his toes. Reflexes were 1+ in his arms, 1+ in his legs. Ankle jerks were detectable but diminished. DIAGNOSTIC STUDIES: Reviewed his MRI scan, which showed diffuse atrophy and some mild white matter changes. He had B12 level of 72. His Lyme titer is still pending. His sed rate is 14. Normal TSH and thyroid. He had 2+ leukocyte esterase. Normal INR. ASSESSMENT/PLAN: I discussed with Dr. Ferguson that it is unclear if his gait disturbance and balance issues are directly related to his Caceres's palsy. Once possible connection would be if he had something like Dye Huynh variant to Guillain-Ber[place], however, his symptoms had been going on little bit long for this to be likely, but it is still. The history is somewhat vague and is hard to know. I will be getting nerve conduction study tomorrow a.m. and then further recommendations would follow that. He does have diffuse atrophy on his MRI scan and some of his gait problems could be chronic, it is hard to know. Again, from his history, some of it could be centrally based. Lyme studies are pending as well and we will follow up on that in addition. Thank you for sharing his care. [id number]/[facility] #: [id number] MADINA
[2018-07-19] MEDS: Morphine INJ* 2 MG/ML 1 ML SYRINGE (TWO MG - NEW SYRINGE VERSION) IV PRN (23:55)
[2018-07-20] MEDS: Acetaminophen TAB* 325 MG PO PRN ×4 (02:46→23:43)
[2018-07-20] MEDS: Heparin VIAL(*) 5000 UNITS/ML VIAL (FIVE THOUSAND) SUBCUT SCH ×2 (06:27→22:28)
[2018-07-20] MEDS: Morphine INJ* 2 MG/ML 1 ML SYRINGE (TWO MG - NEW SYRINGE VERSION) IV PRN (06:48)
[2018-07-20] MEDS: Cyanocobalamin INJ * 1,000 MCG/ML VIAL 1 ML VIAL IM SCH (08:12)
[2018-07-20] MEDS: Finasteride TAB* 5 MG PO SCH (08:13)
[2018-07-20] MEDS: Gabapentin CAP(*) 300 MG PO SCH ×3 (08:13→22:24)
[2018-07-20] MEDS: Metoprolol Tartrate TAB* 25 MG PO SCH ×2 (08:13→22:26)
[2018-07-20] MEDS: Aspirin 81 mg CHEW TAB* 81 MG TAB.CHEW PO SCH (08:14)
[2018-07-20] MEDS: Nystatin TOP POWDER* 15 GM BTL TOPICAL SCH ×3 (08:16→22:27)
[2018-07-20] MEDS ORDERED: Lidocaine 1% INJ* 10 MG/ML 30 ML SDV ONE (12:55)
--- NOTE | 2018-07-20 12:58 | PN ---
Subjective Date of Service: 07/20/18 Interval History: Pt feels well, c/o occasional pain in R face. Today planned for LP Objective Active Medications: Acetaminophen (Tylenol Tab*) 650 mg PO Q6H PRN PRN Reason: PAIN Last Admin: 07/20/18 08:12 Dose: 650 mg Aspirin (Aspirin 81 Mg Chew Tab*) 81 mg PO DAILY [facility] Last Admin: 07/20/18 08:14 Dose: 81 mg Cyanocobalamin (Vitamin B12 Inj *) 1,000 mcg IM DAILY [facility] Stop: 07/23/18 23:59 Last Admin: 07/20/18 08:12 Dose: 1,000 mcg Finasteride (Proscar Tab*) 5 mg PO DAILY [facility] Last Admin: 07/20/18 08:13 Dose: 5 mg Gabapentin (Neurontin Cap(*)) 900 mg PO TID [facility] Last Admin: 07/20/18 08:13 Dose: 900 mg Hydralazine HCl (Apresoline Iv*) 10 mg IV SLOW PU Q2H PRN PRN Reason: SYSTOLIC BP GREATER THAN: Ceftriaxone Sodium 1 gm/ (Sodium Chloride) 50 mls @ 200 mls/hr IVPB Q24H [facility] Last Admin: 07/19/18 17:37 Dose: 200 mls/hr Metoprolol Tartrate (Lopressor Tab*) 25 mg PO Q12HR [facility] Last Admin: 07/20/18 08:13 Dose: 25 mg Morphine Sulfate (Morphine Inj ((Syringe))*) 2 mg IV Q2H PRN PRN Reason: PAIN Last Admin: 07/20/18 06:48 Dose: 2 mg Nystatin (Nystatin Top Powder*) 1 applic TOPICAL TID [facility] Last Admin: 07/20/18 08:16 Dose: 1 applic Vital Signs - 8 hr 07/20/18 07/20/18 07/20/18 06:48 07:52 08:13 Temperature 98.0 F Pulse Rate 73 Respiratory 16 16 16 Rate Blood Pressure 152/95 (mmHg) O2 Sat by Pulse 98 Oximetry 07/20/18 07/20/18 08:16 08:51 Temperature Pulse Rate Respiratory 16 16 Rate Blood Pressure (mmHg) O2 Sat by Pulse Oximetry Oxygen Devices in Use Now: None Appearance: 78 yo M in nAD, AAOx3 Eyes: No Scleral Icterus, - - R cornea cloudy Ears/Nose/Mouth/Throat: NL Teeth, Lips, Gums, Mucous Membranes Moist Neck: NL Appearance and Movements; NL JVP, Trachea Midline Respiratory: Symmetrical Chest Expansion and Respiratory Effort, Clear to Auscultation Cardiovascular: NL Sounds; No Murmurs; No JVD, RRR Abdominal: NL Sounds; No Tenderness; No Distention Lymphatic: No Cervical Adenopathy Extremities: No Edema, No Clubbing, Cyanosis Skin: No Rash or Ulcers, No Nodules or Sclerosis Neurological: Alert and Oriented x 3, - - R Caceres's palsy unchanged Result Diagrams: 07/17/18 12:26 07/19/18 06:29 Microbiology and Other Data: Microbiology 07/18/18 11:00 Urine Culture - Final Urine Assess/Plan/Problems-Billing Assessment: 78 yo M with h/o indwelling Stone x 1 month and worsening of unsteadiness noted to have R facial droop and R neck pain on presentation to ED that had been ongoing for at lest a week prior - Patient Problems (1) Facial droop Comment: appears to be due to Caceres's palsy Lyme testing pending MRI- no CVA due to onset of symptoms over a week ago there would be no clear benefit of tx with steroids or antivirals. D/w . EMG shows b/l LE's neuropathy that may be related to B12 deff, but LP recommended to r/o GBS. cont PT (2) Unsteady gait Comment: Likely neuro symptom of severe Vit B12 defficiency cont daily Vit B12 injections cont PT Likely diet related, but MMA level and anti-intrinsic factor antibody to r/o pernicious anemia pending (3) Stone catheter in place Comment: h/o retention x 1 month , cont finasteride (4) Vitamin B 12 deficiency Comment: severe with neuro symptoms. Tx as above. Cont PT/OT - approved for STR (5) HTN (hypertension) Comment: cont lopressor. One episode of 20 beats of V. tach on 07/18/18 Echo showed EF 45-50% (6) UTI (urinary tract infection) Comment: cx shwos mixed stefan, possible Stone contamination will d/c Ceftriaxone Stone exchanged on 07/18/18 (7) DVT prophylaxis Comment: HSQ Status and Disposition: inpatient
[2018-07-20 13:30] LABS: Body Fluid Source Cerebral Spinal
[2018-07-20] MEDS ORDERED: Gadoteridol* (CONTRAST) 279.3 MG/ML 10 ML IV ONE (15:03)
--- NOTE | 2018-07-20 15:48 | RAD ---
HISTORY: r/o encephalitis COMPARISONS: July 19, 2018 TECHNIQUE: The following sequences were obtained of the head: Sagittal, axial, and coronal T1-weighted images after contrast enhancement with a gadolinium-based intravenous contrast agent. FINDINGS: The study is read in conjunction with the MRI of July 19, 2018. White matter changes noted on the previous examination do not enhance. There is no abnormal enhancement. IMPRESSION: THE WHITE MATTER CHANGES NOTED ON THE PREVIOUS EXAMINATION DO NOT ENHANCE. THERE IS NO ABNORMAL ENHANCEMENT ON THE CURRENT EXAMINATION.
--- NOTE | 2018-07-20 22:01 | CONS ---
CONSULTATION REPORT: DATE OF CONSULT: 07/20/18 REQUESTING PHYSICIAN: Dr. Ferguson. CONSULTING SERVICE: Infectious Disease. REASON FOR CONSULT: Caceres's palsy, aseptic meningitis. IMPRESSION: 1. A week of right peripheral cranial nerve VII palsy as well as spinal fluid profile that includes 90 white cells, mostly lymphocytes, protein 187, normal glucose. He is constitutionally well, though for a couple of months this summer had decreased appetite and malaise. He has had some gait disturbance as well and evidence of neuropathy. His Lyme serology is positive. He could have a cranial nerve VII palsy due to Lyme as well as a Lyme meningitis. It is a little hard to get the time course on his systemic symptoms early in the summer to tie those in, but it is possible. Other infectious considerations with his gait disturbance and CSF findings include neurosyphilis. 2. Vitamin B12 deficiency with macrocytosis. 3. Urinary retention and indwelling Stone for the last 2 months. RECOMMENDATIONS: 1. Doxycycline 100 mg by mouth twice a day to cover Lyme. The Lyme JOSHUA is positive. The Western blot is pending. In the blood, he did have a VDRL and the spinal fluid sent. 2. I will add an HIV antibody. HISTORY OF PRESENT ILLNESS: This is an 78-year-old man, admitted with a right cranial nerve VII palsy. He was seen by Neurology. He was started on ceftriaxone for possibility of urinary tract infection. The urinalysis had shown blood and leukocyte esterase. The urine culture came back negative. He has had an MRI of the brain that showed some central and cortical atrophy with mild chronic ischemic white matter changes that did not enhance. A Lyme JOSHUA was positive, Western blot pending. C-reactive protein is 3, and his vitamin B12 was found to be low. He had a nerve conduction study that was abnormal and prompted a lumbar puncture with results as noted above. He does spend some time outdoors this time of year including around his house in the lawn, does have a cat, which is an outdoor cat and does sleep with him. He has had no travel. PAST MEDICAL HISTORY: 1. 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 2. Benign prostatic hypertrophy with urinary retention and Stone catheter. 3. History of WI. 4. Chronic pain. 5. Left cataract. 6. Right femur fracture and fixation. 7. Status post cholecystectomy. 8. Status post appendectomy. MEDICATIONS: 1. Tylenol. 2. Aspirin. 3. Vitamin B12 injection. 4. Ceftriaxone 1 g a day. 5. Finasteride. 6. Gabapentin. 7. Heparin subcutaneous injection. 8. Metoprolol. ALLERGIES: No known drug allergies. SOCIAL HISTORY: He lives on [address] by himself. He has a pet cat. He is retired from [employer]. No recent travel or sick contacts. FAMILY HISTORY: No recurrent infections. His mother of a heart attack in her 80s and father in his 50s of a heart attack. REVIEW OF SYSTEMS: All negative except as noted above to a 14-point review of systems. PHYSICAL EXAM: Vital Signs: Temperature is 36, heart rate 60, respiratory rate 18, blood pressure 130/88, oxygen saturation 100% on room air. In general , he is awake, not in distress. Neurologic: He has decreased right nasolabial fold and right facial weakness including in the forehead. There is no lower extremity clonus. HEENT: There is no conjunctival hemorrhage. There is slight right-sided conjunctivitis. There is no oropharyngeal ulceration. Neck is supple without mass. Heart is regular rate and rhythm without murmurs, rubs , or gallops. Lungs are clear to auscultation bilaterally. Abdomen: Soft, nontender, nondistended. There are bowel sounds present. Skin: There is no rash or splinter hemorrhage. Musculoskeletal: There is no spinal tenderness to palpation. No joint synovitis. LABORATORY DATA: White blood cell count 7, hemoglobin 16, platelets 382. Creatinine is 0.8. CRP 3.8. Please see impressions and recommendations as outlined above, which I have discussed with Dr. Ferguson. Thanks for asking me to see Mr. Jefferson in consultation. [id number]/[facility] #: [id number] [facility] MED[facility] CENTERJocelyn
[2018-07-21] MEDS: Morphine INJ* 2 MG/ML 1 ML SYRINGE (TWO MG - NEW SYRINGE VERSION) IV PRN ×2 (00:30→07:48)
--- NOTE | 2018-07-21 03:41 | PN ---
PROGRESS NOTE: DATE OF VISIT: 07/20/18 PATIENT OF: Dr. Ferguson. HISTORY: This is a neurological followup on this 78-year-old man with recent onset of gait disturbance and Caceres's palsy and some facial pain. His symptoms are unchanged today from yesterday. He still has his Caceres's palsy and gait disturbance. MEDICATIONS: His medications continued to be: 1. Metoprolol 25 mg q.12 hours. 2. Heparin q.8 hours subcu. 3. Gabapentin 900 t.i.d. 4. Finasteride 5 mg daily. 5. Aspirin 81 mg daily. 6. He is getting B12 injections. PHYSICAL EXAMINATION: On exam, temperature 97, pulse 59, respirations 16, blood pressure 129/88. He is alert and oriented with normal speech and comprehension. Cranial nerves II through XII were abnormal for his right Caceres's palsy. He is also blind in his right eye chronically. Motor exam revealed normal tone and strength, but is wide based unsteady gait. Brisk reflexes. Chest: Clear. Cardiovascular: Regular rate and rhythm. Abdomen: Soft with positive bowel sounds. 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 This raised the issue of polyradiculopathy and because of that I asked Dr. Ferguson to obtain a spinal tap, which showed 90 white cells with 90% lymphs, 10% monos. Total protein 187, glucose of 60. Specialized tests including cytology, VDRL, Lyme titers are pending. His BOAZ is negative. His intrinsic factor antibody is positive. His Lyme disease serology is positive. This is Western Blot pending. I obtained an MRI scan with contrast on and after his positive CSF around his brainstem because his findings could be suggestive of brainstem meningitis with his Caceres's palsy but is polyradiculopathy. I reviewed this and this was negative. ASSESSMENT AND PLAN: Mr. Jefferson is a complicated case. His elevated white count and CSF would not be consistent with purely inflammatories, polyradiculopathy such as Guillain-Liberal or chronic demyelinating polyradiculopathy. It suggests either more of an autoimmune or infectious process and in addition to adding cryptococcal antigen. We have asked Dr. Torres to see and give his input. It is possible that his Caceres's palsy is secondary to Lyme disease and he may have a Lyme meningitis. His peripheral neuropathy may be independent and secondary to his low B12, but this remains to be seen as possible that he despite is negative MRI scan with contrast he could considerably have a carcinomatous meningitis and we await the CSF cytology. Thank you for sharing his case. [id number]/[facility] #: [id number] MADINA
[2018-07-21] MEDS: Heparin VIAL(*) 5000 UNITS/ML VIAL (FIVE THOUSAND) SUBCUT SCH ×3 (05:15→20:16)
[2018-07-21] MEDS: Gabapentin CAP(*) 300 MG PO SCH ×3 (07:56→20:17)
[2018-07-21] MEDS: Metoprolol Tartrate TAB* 25 MG PO SCH ×2 (07:58→20:17)
[2018-07-21] MEDS: DOXYcycline CAP(*) 100 MG PO SCH ×2 (07:59→20:16)
[2018-07-21] MEDS: Finasteride TAB* 5 MG PO SCH (08:00)
[2018-07-21] MEDS: Aspirin 81 mg CHEW TAB* 81 MG TAB.CHEW PO SCH (08:00)
[2018-07-21] MEDS: Cyanocobalamin INJ * 1,000 MCG/ML VIAL 1 ML VIAL IM SCH (08:01)
[2018-07-21] MEDS: Nystatin TOP POWDER* 15 GM BTL TOPICAL SCH ×3 (08:04→20:11)
--- NOTE | 2018-07-21 08:35 | PN ---
Subjective Date of Service: 07/21/18 Length of Stay: 4 Days Neurology is following for Caceres's Palsy and Neuropathy with gait disturbance Interval History: Overnight, no new issues reported. Tolerated LP without incident. Remains somewhat steady when walking. No falls. He is eating this am. Denies any new neurologic symptoms. No headache, no new vision changes, no new numbness, tingling or weakness. "I feel alright." Review of Systems: Denied CP, SOB, or palpitations, headaches, new vision changes (chronic right vision loss), N/V. Eating well. Stone in place Objective Active Medications: Acetaminophen (Tylenol Tab*) 650 mg PO Q6H PRN PRN Reason: PAIN Last Admin: 07/20/18 23:43 Dose: 650 mg Aspirin (Aspirin 81 Mg Chew Tab*) 81 mg PO DAILY [facility] Last Admin: 07/21/18 08:00 Dose: 81 mg Cyanocobalamin (Vitamin B12 Inj *) 1,000 mcg IM DAILY [facility] Stop: 07/23/18 23:59 Last Admin: 07/21/18 08:01 Dose: 1,000 mcg Doxycycline Hyclate (Vibramycin Cap(*)) 100 mg PO BID [facility] Last Admin: 07/21/18 07:59 Dose: 100 mg Finasteride (Proscar Tab*) 5 mg PO DAILY [facility] Last Admin: 07/21/18 08:00 Dose: 5 mg Gabapentin (Neurontin Cap(*)) 900 mg PO TID [facility] Last Admin: 07/21/18 07:56 Dose: 900 mg Heparin Sodium (Porcine) (Heparin Vial(*)) 5,000 units SUBCUT Q8HR [facility] Last Admin: 07/21/18 05:15 Dose: 5,000 units Hydralazine HCl (Apresoline Iv*) 10 mg IV SLOW PU Q2H PRN PRN Reason: SYSTOLIC BP GREATER THAN: Metoprolol Tartrate (Lopressor Tab*) 25 mg PO Q12HR [facility] Last Admin: 07/21/18 07:58 Dose: 25 mg Morphine Sulfate (Morphine Inj ((Syringe))*) 2 mg IV Q2H PRN PRN Reason: PAIN Last Admin: 07/21/18 07:48 Dose: 2 mg Nystatin (Nystatin Top Powder*) 1 applic TOPICAL TID [facility] Last Admin: 07/21/18 08:04 Dose: 1 applic Vital Signs 07/20/18 07/20/18 07/20/18 08:51 11:53 13:30 Temperature 97.7 F 97.0 F Pulse Rate 62 59 Respiratory 16 20 18 Rate Blood Pressure 134/89 129/88 (mmHg) O2 Sat by Pulse 100 100 Oximetry 07/20/18 07/20/18 07/20/18 14:29 14:55 17:28 Temperature Pulse Rate Respiratory 16 16 16 Rate Blood Pressure (mmHg) O2 Sat by Pulse Oximetry 07/20/18 07/20/18 07/20/18 17:43 19:41 20:00 Temperature 98.3 F 97.7 F Pulse Rate 77 82 Respiratory 20 20 18 Rate Blood Pressure 145/97 134/93 (mmHg) O2 Sat by Pulse 98 95 Oximetry 07/20/18 07/20/18 07/21/18 22:24 23:10 00:30 Temperature 97.5 F Pulse Rate 71 Respiratory 18 18 18 Rate Blood Pressure 150/97 (mmHg) O2 Sat by Pulse 97 Oximetry 07/21/18 07/21/18 07/21/18 00:37 01:39 03:42 Temperature 97.5 F Pulse Rate 67 Respiratory 18 18 20 Rate Blood Pressure 138/84 (mmHg) O2 Sat by Pulse 99 Oximetry 07/21/18 07/21/18 07/21/18 07:21 07:48 07:56 Temperature 98.0 F Pulse Rate 65 Respiratory 16 18 18 Rate Blood Pressure 152/102 (mmHg) O2 Sat by Pulse 98 Oximetry Intake and Output Last 24 Hours 07/19/18 07/20/18 07/21/18 07/22/18 06:59 06:59 06:59 06:59 Intake Total 1370 990 865 Output Total 1275 1035 1375 Balance 95 -45 -510 Weight 206 lb 8 oz 206 lb 8 oz Intake: IV Fluids 50 ABX - CEFTRIAXONE 50 Oral 1320 990 865 Output: Stone 1275 1035 1375 Other: # Bowel Movements 1 0 0 Estimated Stool Amount Large Oxygen Devices in Use Now: None Neurology Exam: General: HEENT: Normocephalic/atraumatic, sclera anicteric, mucous membranes moist Neck: Supple Chest: Clear to auscultation bilaterally Cardiovascular: Regular rate and rhythm without murmurs, rubs, gallops Abdomen: Soft, nontender/nondistended Extremities: No clubbing, cyanosis, or edema Skin: Warm and dry Neurological Findings: Awake, Alert, Oriented x3 Speech: fluent without dysarthria, repetition intact Cranial Nerve: PEERL, EOM intact, Marked vision loss in the right eye, no nystagmus on the left, weakness in the upper and lower face on the right, facial sensation intact, hearing intact to finger rub bilaterally, palate elevates symmetrically, tongue midline Motor: 5/5 throughout, proximal and distal extremities x4 tone/bulk normal. No focal weakness, no fasciculation appreciated Sensation: Diminished to LT/PP in the feet to shins, with reduced PP in the hands Deep Tendon Reflex: 1+ symmetric in the upper extremities, 2+ at the patella, 1 + at the ankles, equivocal Babinski Finger to nose, rapid alternating movements intact without tremor, no dysdiadochokinesia Gait: Unsteady, wide based Result Diagrams: 07/17/18 12:26 07/19/18 06:29 Microbiology and Other Data: Microbiology 07/18/18 11:00 Urine Culture - Final Urine Assessment/Plan Assessment: 78 year old gentleman with a history of likely Caceres's Palsy on the right, gait instability, urinary retention, Lyme WB positive. ID following, now on Doxycycline for presumed Lyme infection. 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 B12 low, on replacement. MRI w/wo shows no enhancement. Chronic changes. A unifying diagnosis remains cryptic. 1. Concern for Lyme disease: Continue Doxycycline: ID following. S/P LP: Follow up studies. Unlikely neurosyphilis but follow up VDRL. Follow up cytology. Follow up HIV serology. 2. Unlikely AIDP/CIDP, reflexes preserved, consider MRI L/S spine 3. B12 deficiency: posterior column? On replacement. Workup in progress 4. PT Will continue to follow
[2018-07-21 14:59] LABS: CSF VDRL Negative (Negative)
--- NOTE | 2018-07-21 16:57 | PN ---
Subjective Date of Service: 07/21/18 Interval History: Pt stated that intermittent R facial pain that was present 2 days ago resolved. Feels overall better and stronger Objective Active Medications: Acetaminophen (Tylenol Tab*) 650 mg PO Q6H PRN PRN Reason: PAIN Last Admin: 07/20/18 23:43 Dose: 650 mg Aspirin (Aspirin 81 Mg Chew Tab*) 81 mg PO DAILY [facility] Last Admin: 07/21/18 08:00 Dose: 81 mg Cyanocobalamin (Vitamin B12 Inj *) 1,000 mcg IM DAILY [facility] Stop: 07/23/18 23:59 Last Admin: 07/21/18 08:01 Dose: 1,000 mcg Doxycycline Hyclate (Vibramycin Cap(*)) 100 mg PO BID [facility] Last Admin: 07/21/18 07:59 Dose: 100 mg Finasteride (Proscar Tab*) 5 mg PO DAILY [facility] Last Admin: 07/21/18 08:00 Dose: 5 mg Gabapentin (Neurontin Cap(*)) 900 mg PO TID [facility] Last Admin: 07/21/18 14:24 Dose: 900 mg Heparin Sodium (Porcine) (Heparin Vial(*)) 5,000 units SUBCUT Q8HR [facility] Last Admin: 07/21/18 14:24 Dose: 5,000 units Hydralazine HCl (Apresoline Iv*) 10 mg IV SLOW PU Q2H PRN PRN Reason: SYSTOLIC BP GREATER THAN: Metoprolol Tartrate (Lopressor Tab*) 25 mg PO Q12HR [facility] Last Admin: 07/21/18 07:58 Dose: 25 mg Morphine Sulfate (Morphine Inj ((Syringe))*) 2 mg IV Q2H PRN PRN Reason: PAIN Last Admin: 07/21/18 07:48 Dose: 2 mg Nystatin (Nystatin Top Powder*) 1 applic TOPICAL TID [facility] Last Admin: 07/21/18 14:26 Dose: Not Given Vital Signs - 8 hr 07/21/18 07/21/18 07/21/18 10:18 11:28 14:24 Temperature 97.6 F Pulse Rate 58 Respiratory 16 16 16 Rate Blood Pressure 128/81 (mmHg) O2 Sat by Pulse 95 Oximetry 07/21/18 15:22 Temperature 97.5 F Pulse Rate 76 Respiratory 20 Rate Blood Pressure 121/85 (mmHg) O2 Sat by Pulse 98 Oximetry Oxygen Devices in Use Now: None Appearance: 78 yo M in nAD, aAOx3 Eyes: No Scleral Icterus, - - R cornea cloudy Ears/Nose/Mouth/Throat: NL Teeth, Lips, Gums, Mucous Membranes Moist Neck: NL Appearance and Movements; NL JVP, Trachea Midline Respiratory: Symmetrical Chest Expansion and Respiratory Effort Cardiovascular: NL Sounds; No Murmurs; No JVD Abdominal: NL Sounds; No Tenderness; No Distention Lymphatic: No Cervical Adenopathy Extremities: No Edema, No Clubbing, Cyanosis Skin: No Rash or Ulcers, No Nodules or Sclerosis Neurological: Alert and Oriented x 3, - - R Caceres's palsy Result Diagrams: 07/17/18 12:26 07/19/18 06:29 Microbiology and Other Data: Microbiology 07/18/18 11:00 Urine Culture - Final Urine Assess/Plan/Problems-Billing Assessment: 78 year old gentleman with a 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 Started on doxy on 07/20/18 and prior to that was treated x 3 days with Ceftriaxone MRI with and without contrast - no CVA EMG shows b/l LE's neuropathy that may be related to B12 deff, but LP recommended to r/o GBS. CSF shows 90 WBC and increased protein. VDRL, Cryptococcus antigen , Lyme serology on CSF pending. As per d/w Dr. Torres - symtoms and findings may be Lyme related HIV negative. cont PT, likely d/c to [facility] on 07/22/18 with f/u with Dr. Renee scheduled on 08/12/18 (2) Unsteady gait Comment: Likely neuro symptom of severe Vit B12 defficiency cont daily Vit B12 injectionsx 7 days, then monthly. anti intrinsic factor positive, but it may be elevated due to concurrent Vit B12 injections. Recommended anti-intrinsic factor repeat 2 weeks after Vit B12 injection in the future to r/o pernicious anemia (3) Stone catheter in place Comment: h/o retention x 1 month , cont finasteride (4) Vitamin B 12 deficiency Comment: severe with neuro symptoms. Tx as above. Cont PT/OT - approved for [facility] (5) HTN (hypertension) Comment: cont lopressor. One episode of 20 beats of V. tach on 07/18/18 Echo showed EF 45-50%. will d/c telem (6) UTI (urinary tract infection) Comment: cx shows mixed stefan, possible Stone contamination Ceftriaxone d/c'd Stone exchanged on 07/18/18 (7) DVT prophylaxis Comment: HSQ Status and Disposition: inpatient, awaiting remaining lab values from CSF to come back. Likely d/c to [facility] on 07/22/18
[2018-07-21] MEDS ORDERED: Magnesium Hydroxide LIQ* 30 ML UDC PO PRN (18:44)
[2018-07-21 18:52] LABS: B garinii/B afzelii PCR Negative (Negative)
[2018-07-22] MEDS ORDERED: Omeprazole CAP* 20 MG PO SCH (06:00)
[2018-07-22] MEDS: Heparin VIAL(*) 5000 UNITS/ML VIAL (FIVE THOUSAND) SUBCUT SCH (07:27)
[2018-07-22 08:25] VITALS: BP 154/99
[2018-07-22] MEDS: Metoprolol Tartrate TAB* 25 MG PO SCH (08:51)
[2018-07-22] MEDS: Aspirin 81 mg CHEW TAB* 81 MG TAB.CHEW PO SCH (08:51)
[2018-07-22] MEDS: DOXYcycline CAP(*) 100 MG PO SCH (08:52)
[2018-07-22] MEDS: Finasteride TAB* 5 MG PO SCH (08:52)
[2018-07-22] MEDS: Gabapentin CAP(*) 300 MG PO SCH (08:53)
[2018-07-22] MEDS: Cyanocobalamin INJ * 1,000 MCG/ML VIAL 1 ML VIAL IM SCH (08:53)
[2018-07-22] MEDS: Nystatin TOP POWDER* 15 GM BTL TOPICAL SCH (08:54)
[2018-07-22] MEDS: Acetaminophen TAB* 325 MG PO PRN (12:32)
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
== END 2018-07-22 15:05 | DRG 868 ==
LOC: ED 11:50 → MEDTELE 17:58
PROVIDERS: ADMIT Internal Medicine; ATTEND Internal Medicine
PROC: 0T2BX0Z Change Drainage Device in Bladder, External Approach (ICD-10-PCS; 2018-07-18)
PROC: 4A0FX3Z Measurement of Musculoskeletal Contractility, External Approach (ICD-10-PCS; 2018-07-20)
PROC: 4A0 Measurement and Monitoring, Physiological Systems, Measurement (ICD-10-PCS; 2018-07-20)
PROC: 4A01X4Z Measurement of Peripheral Nervous Electrical Activity, External Approach (ICD-10-PCS; 2018-07-20)
PROC: 009U3ZX Drainage of Spinal Canal, Percutaneous Approach, Diagnostic (ICD-10-PCS; principal; 2018-07-20 13:00)
DX: A69.21 Meningitis due to Lyme disease (principal); N39.0 Urinary tract infection, site not specified; I47.2 Ventricular tachycardia; G51.0 Bell's palsy; G89.29 Other chronic pain; N40.1 Benign prostatic hyperplasia with lower urinary tract symptoms; Z66 Do not resuscitate; R33.9 Retention of urine, unspecified; H26.9 Unspecified cataract; D75.89 Other specified diseases of blood and blood-forming organs; Z96.0 Presence of urogenital implants; H54.61 Unqualified visual loss, right eye, normal vision left eye; R47.81 Slurred speech; G62.9 Polyneuropathy, unspecified; R26.9 Unspecified abnormalities of gait and mobility; I77.819 Aortic ectasia, unspecified site; I65.22 Occlusion and stenosis of left carotid artery; R41.3 Other amnesia; I10 Essential (primary) hypertension; E53.8 Deficiency of other specified B group vitamins; I25.2 Old myocardial infarction; Z90.49 Acquired absence of other specified parts of digestive tract; Z82.49 Family history of ischemic heart disease and other diseases of the circulatory system; Z79.82 Long term (current) use of aspirin; Z87.891 Personal history of nicotine dependence
CPT/HCPCS: 36415; 62270; 70450; 70496; 70498; 70551; 70552; 71045; 80048; 80053; 80061; 81003; 81015; 82607; 82746; 82945; 83605; 83735; 83921; 83930; 84157; 84443; 84484; 85025; 85610; 85652; 85730; 86038; 86140; 86340; 86592; 86617; 86618; 86703; 87070; 87086; 87205; 87476; 87529; 87798; 87899; 88112; 88184; 88187; 88188; 88189; 89051; 93005; 93306; 95886; 95911; 99284; A9270-GY; A9579; C8929; G8978-GP-CK; G8979-GP-CJ; G8987-GO-CJ; G8988-GO-CI; G8989-GO-CI; J0696; J1644; J2270; J3420; Q9967

== ENCOUNTER 2018-08-09 11:44 | Inpatient (IN) | payer MEDICARE ==
--- NOTE | 2018-08-09 12:03 | ED ---
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 Patient was seated talking to someone, but prior to that, had been had physical therapy for his legs. Associated sx: mild dizziness and tiredness prior to episode; pale. Denies: VARGAS, CP, SOB. Patient states feeling OK at bedside. PMHx: Lyme dz. - History Of Current Complaint Chief Complaint: EDSyncope Time Seen by Provider: 08/09/18 11:51 Hx Obtained From: Patient Onset/Duration: Sudden Onset, Resolved Activity At Onset: At Rest Alleviating Factor(s): Spontaneous Resolution Associated Signs And Symptoms: Dizzy - mild, Other - pos: mild tiredness. neg: CP, SOB, VARGAS - Allergies/Home Medications Allergies/Adverse Reactions: Allergies Allergy/AdvReac Type Severity Reaction Status Date / Time No Known Allergies Allergy Verified 07/17/18 12:20 PMH/Surg Hx/FS Hx/Imm Hx Previously Healthy: No Endocrine/Hematology History: Denies: Hx Anticoagulant Therapy, Hx Diabetes Cardiovascular History: Denies: Hx Hypertension, Hx Pacemaker/ICD Comment Only: Other Cardiovascular Problems/Disorders - ND Respiratory History: Denies: Hx Asthma, Hx Chronic Obstructive Pulmonary Disease (COPD), Hx Lung Cancer, Hx Pulmonary Embolism GI History: Denies: Hx Gastroesophageal Reflux Disease History: Reports: Hx Benign Prostatic Hyperplasia Comment Only: Other Problems/Disorders - urine retention Musculoskeletal History: Reports: Hx Back Problems Sensory History: Reports: Hx Contacts or Glasses, Hx Legally Blind - Rt eye, Hx Hearing Problem Denies: Hx Cataracts, Hx Eye Injury, Hx Eye Prosthesis, Hx Glaucoma, Hx Macular Degeneration, Hx Deafness, Hx Hearing Aid Opthamlomology History: Reports: Hx Contacts or Glasses, Hx Legally Blind - Rt eye Denies: Hx Cataracts, Hx Eye Injury, Hx Eye Prosthesis, Hx Glaucoma, Hx Macular Degeneration Neurological History: Reports: Hx Headaches Psychiatric History: Denies: Hx Panic Disorder - Surgical History Surgery Procedure, Year, and Place: stents in heart, tonsils, appendix, hernia x9, gallbladder, right ankle, right femur Infectious Disease History: No Infectious Disease History: Denies: Hx Clostridium Difficile, Hx Hepatitis, Hx of Known/Suspected MRSA, Hx Shingles, Hx Tuberculosis, Hx Known/Suspected VRE, Traveled Outside the [place] in Last 30 Days - Family History Known Family History: Positive: Cardiac Disease - Social History Occupation: Retired Lives: Assisted Living Alcohol Use: None Substance Use Type: Reports: None Smoking Status (MU): Former Smoker Review of Systems Constitutional: Other - paleness Positive: Other - pos: mild tiredness Negative: Chest Pain Negative: Shortness Of Breath Neurological: Other - pos: mild dizziness Positive: Syncope. Negative: Headache All Other Systems Reviewed And Are Negative: Yes Physical Exam - Summary Physical Exam Summary: VITAL SIGNS: Reviewed. GENERAL: Patient is a well-developed and nourished MALE who is lying comfortable in the stretcher. Patient is not in any acute respiratory distress. HEAD AND FACE: No signs of trauma. No ecchymosis, hematomas or skull depressions. No sinus tenderness. EYES: PERRLA, EOMI x 2, No injected conjunctiva, no nystagmus. EARS: Hearing grossly intact. Ear canals and tympanic membranes are within normal limits. MOUTH: Oropharynx within normal limits. NECK: Supple, trachea is midline, no adenopathy, no JVD, no carotid bruit, no c- spine tenderness, neck with full ROM. CHEST: Symmetric, no tenderness at palpation LUNGS: Clear to auscultation bilaterally. No wheezing or crackles. CVS: Regular rate and rhythm, S1 and S2 present, no murmurs or gallops appreciated. ABDOMEN: Soft, non-tender. No signs of distention. No rebound, no guarding, and no masses palpated. Bowel sounds are normal. EXTREMITIES: FROM in all major joints, no edema, no cyanosis or clubbing. NEURO: Alert and oriented x 3. No acute neurological deficits. Speech is normal and follows commands. SKIN: Dry and warm Triage Information Reviewed: Yes Vital Signs On Initial Exam: Initial Vitals Temp Pulse Resp BP Pulse Ox 97.6 F 58 24 104/69 95 08/09/18 11:46 08/09/18 11:46 08/09/18 11:46 08/09/18 11:46 08/09/18 11:46 Vital Signs Reviewed: Yes - Rabia Coma Scale Best Eye Response: 4 - Spontaneous Best Motor Response: 6 - Obeys Commands Best Verbal Response: 5 - Oriented Coma Scale Total: 15 Diagnostics - Vital Signs Vital Signs Temp Pulse Resp BP Pulse Ox 10/01/18 11:46 97.6 F 58 24 104/69 95 - Laboratory Result Diagrams: 08/10/18 04:58 08/10/18 05:00 Lab Statement: Any lab studies that have been ordered have been reviewed, and results considered in the medical decision making process. - Radiology CXR Xray Interpretation: No Acute Changes - IMPRESSION: No evidence for acute dz. ED provider has reviewed this report. Radiology Interpretation Completed By: Radiologist - CT BRAIN CT CT Interpretation: No Acute Changes - IMPRESSION: 1. NO EVIDENCE FOR ACUTE INTRACRANIAL ABNORMALITY. 2. ATROPHY. ED provider has reviewed this report. 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 Patient was seated talking to someone, but prior to that, had been had physical therapy for his legs. Associated sx: mild dizziness and tiredness prior to episode; pale. Denies: VARGAS, CP, SOB. Patient states feeling OK at bedside. PMHx: Lyme dz. Blood work without any significant abnormality, troponin and d-dimer are negative. Head CT impression : No acute interconnected pathology. Chest x-ray impression no acute pathology. Because of the syncopal episode with positive loss of consciousness and he is comorbidities I discuss my physical exam and findings with Dr. Johnson from the hospitalist services who accepted the patient for admission. At this point the patient is hemodynamically stable alert oriented 3. - Diagnoses Differential Diagnosis/HQI/PQRI: Positive: Cerebral Vascular Accident, Coronary Artery Disease, Dysrhythmia, Seizure, Transient Ischemic Attack, Vasovagal Episode Provider Diagnoses: Syncope - Physician Notifications Discussed Care of Patient With: Jose Alberto Johnson - hospitalist Time Discussed With Above Provider: 13:32 Instructed by Provider To: Admit As Inpatient Discharge - Sign-Out/Discharge Documenting (check all that apply): Patient Departure - ADM - Discharge Plan Condition: Stable Disposition: ADMITTED TO [facility] - Billing Disposition and Condition Condition: STABLE Disposition: Admitted to [facility] - Attestation Statements Document Initiated by Scribe: Yes Documenting Scribe: Carlo Dutton Provider For Whom Scribe is Documenting (Include Credential): Dr. Don Wong MD Scribe Attestation: I, Carlo Dutton, scribed for Dr. Don Wong MD on 08/10/18 at 0826. Scribe Documentation Reviewed: Yes Provider Attestation: The documentation as recorded by the scribe, Carlo Dutton accurately reflects the service I personally performed and the decisions made by me, Dr. Don Wong MD
[2018-08-09 12:19] LABS: ABS Basophils 0 10^3/ul (0-0.2); ABS Eosinophils 0.1 10^3/ul (0-0.6); ABS Monocytes 0.4 10^3/ul (0-0.8); ABS Neutrophils 5.7 10^3/ul (1.5-7.7); ABS Nucleated RBC 0 10^3/ul; Eosinophil % 1.4 % (0-6); Hematocrit 40 % (42-52); Hemoglobin 13.7 g/dl (14.0-18.0); Lymphocyte % 13.9 % (25-47); Mean Corpuscular HGB Conc 34 g/dl (31-36); Mean Corpuscular Hemoglobin 34 pg (27-31); Mean Corpuscular Volume 99 fL (80-94); Nucleated Red Blood Cells % 0.1; Platelet Count 240 10^3/ul (150-450); Red Blood Count 4.07 10^6/ul (4.00-5.40); Red Cell Distribution Width 13 % (10.5-15); White Blood Count 7.2 10^3/ul (3.5-10.8)
[2018-08-09 12:27] LABS: INR 0.95 (0.77-1.02)
[2018-08-09 12:39] LABS: EGFR Non-African American 76.3 (>60)
--- NOTE | 2018-08-09 12:40 | RAD ---
INDICATION: Syncope. COMPARISON: Comparison is made with a prior CT of the brain from July 17, 2018. TECHNIQUE: Contiguous axial sections of the brain were obtained from the skull base to the vertex without contrast. FINDINGS: The ventricles, cisterns and sulci are enlarged consistent with diffuse atrophy. No significant focal abnormality or mass effect is seen. There is no evidence for hemorrhage. No significant focal osseous abnormality is seen. There is a small round density visualized in the posterior aspect of the right maxillary sinus measuring 8 mm in size most consistent with a mucous retention cyst or polyp. The visualized portion of the paranasal sinuses and mastoid air cells otherwise appear clear. IMPRESSION: 1. NO EVIDENCE FOR ACUTE INTRACRANIAL ABNORMALITY. 2. ATROPHY.
--- NOTE | 2018-08-09 12:49 | RAD ---
INDICATION: Syncope. COMPARISON: Comparison is made with a prior study from July 17, 2018. TECHNIQUE: A portable view of the chest was obtained. FINDINGS: Cardiac and mediastinal contours appear to be within normal limits. The lungs are clear. No pleural effusion is seen. IMPRESSION: NO EVIDENCE FOR ACUTE DISEASE.
[2018-08-09] MEDS ORDERED: Benzonatate CAP* 100 MG PO PRN (14:30)
[2018-08-09] MEDS: Acetaminophen TAB* 325 MG PO PRN (14:50)
[2018-08-09] MEDS ORDERED: cefTRIAXone(*) 2 GM in NS 0.9% 100 ML* 100 ML IVPB SCH (15:00)
[2018-08-09] MEDS ORDERED: Pilocarpine 1% OPTH.SOL* 15 ML BTL LEFT EYE SCH (17:30)
[2018-08-09] MEDS: Gabapentin CAP(*) 300 MG PO SCH (20:25)
[2018-08-09] MEDS: DOXYcycline CAP(*) 100 MG PO SCH (20:25)
[2018-08-09] MEDS: Latanoprost 0.005%* 2.5 ml BTL RIGHT EYE SCH (20:25)
[2018-08-09] MEDS: Heparin VIAL(*) 5000 UNITS/ML VIAL (FIVE THOUSAND) SUBCUT SCH (20:25)
[2018-08-09] MEDS ORDERED: DOXYcycline CAP(*) 100 MG PO SCH (21:00)
--- NOTE | 2018-08-09 21:08 | HP ---
CC: Dr. Freeman; Dr. Torres; Dr. West * HISTORY AND PHYSICAL: DATE OF ADMISSION: 08/09/18 PRIMARY CARE PROVIDER: Dr. Freeman. ATTENDING PHYSICIAN WHILE IN THE HOSPITAL: Cullen Johnson MD * (report dictated by Sravan Khan NP). CONSULTING INFECTIOUS DISEASE SPECIALIST: Dr. Torres. CONSULTING SEISMOGRAPH HELPER: Dr. West. CHIEF COMPLAINT: Syncope. HISTORY OF PRESENT ILLNESS: Mr. 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 He was discharged about a month ago to [facility]. He was undergoing physical therapy there. He unfortunately today was doing his [facility] physical therapy session, he completed the session, he never once had chest pain or shortness of breath. He walked up and down the unit twice at [facility]. He went back to his room, was sitting in the chair waiting for his second session, and the next thing he knew he woke up and he was surrounded by people around him. He denied any chest pain prior to or after this event. He says he just felt tired. He felt fatigued. He denied feeling palpitations or fluttering in his chest. He denies any recent fevers or chills. He denies having any abdominal pain or any nausea or vomiting or diarrhea. He was being evaluated again by therapy. He finished the physical therapy. Because of the syncopal episode, he came in. He does carry a history of BPH with a chronic Stone, Caceres palsy, Lyme meningitis , history of IA, polyneuropathy history. He is legally blind in his right eye. He has a history of CAD. He is on beta-blockers, but there has been no change in medications with the exception that they have added on Tylenol and he has been on doxycycline for the Lyme. He came in to the ED today for syncope. It was noted when he came in that on his initial EKG, he was bradycardic in the 50s but because of the syncope, we were asked to evaluate for admission. PAST MEDICAL HISTORY: Significant for: 1. Caceres palsy. 2. Lyme meningitis. 3. BPH. 4. IA. 5. Chronic pain. 6. Polyneuropathy. 7. Legally blind in the right eye. 8. CAD. PAST SURGICAL HISTORY: 1. He has had a heart catheterization and 1 sent according to the patient. 2. He has had appendectomy. 3. He has had cholecystectomy. HOME MEDICATIONS: According to the list that he provided, includes: 1. Travatan 1 drop right eye q.p.m. 2. Timolol 1 drop right eye b.i.d. 3. Flomax 0.4 mg daily. 4. Pilocarpine 1 drop left eye as directed. 5. Prilosec 20 mg daily. 6. Nystatin powder 1 application topically t.i.d. 7. Lopressor 25 mg p.o. every 12 hours. 8. Milk of magnesia 30 cc p.o. daily. 9. Gabapentin 900 mg p.o. t.i.d. 10. Proscar 5 mg daily. 11. Doxycycline 100 mg p.o. b.i.d. 12. B12 1000 mcg IM monthly. 13. Tessalon 100 mg p.o. t.i.d. as needed. 14. Aspirin 81 mg daily. 15. Tylenol 650 mg every 6 hours as needed for pain. ALLERGIES TO MEDICATIONS: Include no known drug allergies. FAMILY HISTORY: Both his parents had IA. SOCIAL HISTORY: He does not smoke. He does not drink. He resides at [facility] currently. Surrogate decision maker is his sister and his friend. REVIEW OF SYSTEMS: There is no documented fever. He denies having any significant weight change. There is no double vision. He denies having any ear discharge. There is no rhinorrhea. There is no sore throat, no thyroid enlargement. Denied having any chest pain. There is no orthopnea. There is no nocturnal dyspnea. There was a loss of consciousness. There is no pruritus, and there is no skin ulceration. Review of 14 systems completed, all others negative. PHYSICAL EXAMINATION GENERAL: Mr. Jefferson is an 78-year-old male patient. He is sitting in the ED stretcher. He does not appear to be in any acute distress. VITAL SIGNS: Blood pressure 104/64, pulse is 58, respirations were 24, O2 sat 95%, temperature 97.6. HEENT: Head: Atraumatic, normocephalic. Eyes: EOMs are intact. Sclerae anicteric and not pale. Throat: Oral mucosa appears to be moist. No oropharyngeal erythema. NECK: Supple. LUNGS: Clear to auscultation bilaterally. There are no wheezes, rales, or rhonchi. HEART: Sounds S1, S2. He had a regular rate and rhythm. He has currently heart rate in the mid 60. There are no murmurs, rubs, or gallops. ABDOMEN: Soft, it was flat, it was nontender. Bowel sounds were present. EXTREMITIES: Pulses are 2+ throughout. He is moving all 4 extremities with 5/ 5 strength. NEUROLOGIC: The patient is awake. He is alert. He is oriented x3. His tongue is midline. His digital media manager are equal. He has a facial droop to the right side baseline. No new deficits SKIN: Intact. DIAGNOSTIC STUDIES/LAB DATA: Labs today reveal WBC of 9.2, RBC of 4.07, hemoglobin 13.7, hematocrit of 40, his platelet count was 240,000. INR 0.95. D -dimer less than 100. Sodium 136, potassium 4.3, chloride 106, bicarb 26, BUN 18, creatinine 0.95, glucose 95, lactate 1.8, calcium 9, mag 2.0. Total bili 1.4, AST 19, ALT 31, alk phos 75. Troponin 0.00. Ammonia of 31. TSH normal. Albumin of 3.8. Toxicology negative. UA is pending. He had a brain CT obtained today. Brain CT showed no evidence for acute intracranial abnormality, atrophy. Chest x-ray showed no evidence for acute disease. EKG shows a sinus bradycardia, rate of 58. No ST elevations or T-wave inversions were noted. We have reviewed to his previous EKG, the rate is different. Today, he is bradycardic but there are no significant changes from previous EKGs with exception of the rate. His OR today was noted to be 0.17. He just had an echo done less than a month ago, which showed EF of 45% to 50%. No prior echo for compare. He had a head CTA as well, which showed atherosclerosis at the origin in the left internal carotid artery, no significant carotid artery stenosis. Old medical records reviewed. ASSESSMENT AND PLAN: Mr. Jefferson is an 78-year-old male patient coming into the ED today with complaints of a syncopal episode. We were asked to evaluate for admission. He will be admitted under observation status for: 1. Syncope. At this point, etiology is unclear. I am concerned for arrhythmia particularly in the setting of recent Lyme. I did place a consult with Dr. West. I also placed a consult with Dr. Torres. I am going to go ahead and put the patient on 2 g of IV Rocephin for the time being. We may need to consider longer event monitoring. I am holding his beta-blockers. We will get orthostatic blood pressures. I am holding the patient's beta-blockers per the recommendations of Cardiology given the setting of recent syncope and I will continue to monitor him on telemetry. 2. Caceres palsy. Continue current medical regimen. Follow with Neurology. 3. History of Lyme meningitis. He will be placed on Rocephin. 4. Benign prostatic hypertrophy. Continue Stone and Proscar and finasteride. 5. History of myocardial infarction and coronary artery disease. Continue the aspirin for the time being and holding beta-blockers per recommendations of Cardiology. 6. Neuropathy. Continue his gabapentin. 7. History of right eye blindness. Continue his eyedrops with the exception of timolol particularly in the setting of bradycardia. 8. DVT prophylaxis. He will be placed on heparin subcu. 9. Code status. He is a DNR. 10. Fluids, electrolytes, and nutrition. He can have a heart healthy diet. TIME SPENT: On the admission was 60 minutes, greater than half of the time was spent [id number] with the patient, obtaining my history and physical, the other half of the time was spent going over the plan of care with the patient and implementing the plan of care. I did discuss plan of care with my attending, Dr. Johnson; he is in agreement. SRAVAN KHAN, RIVAS [id number]/[facility] #: [id number] MADINA
--- NOTE | 2018-08-09 21:25 | CONS ---
CARDIOLOGY CONSULTATION: DATE OF CONSULT: 08/09/18 INDICATION FOR CONSULTATION: Syncope. HISTORY OF PRESENT ILLNESS: The patient is an 78-year-old gentleman with a history of urinary retention, recent history of Lyme disease with possible meningitis, history of coronary artery disease, who was at rehab today and had a syncopal episode. The patient was in the hospital earlier this month with what was thought to be Lyme meningitis. He was sent to rehab for strength training. The patient did his morning exercises with a physical therapist, was back at his room resting when he had a witnessed syncopal episode. The patient was sitting down at that time, the patient simply just slumped forward. I do not have any other details of his episode. The patient was transported to the emergency room. On arrival in the emergency room, the patient had sinus bradycardia at 51 beats per minute, no evidence of any high-degree AV block, no other arrhythmias. The patient was admitted to the hospital for observation. The patient himself does not remember the incident. He just remembers people rushing up to him after it had occurred. The patient had no seizure activity that was documented. PAST MEDICAL HISTORY: Significant for right eye blindness secondary to infection, benign prostatic hypertrophy, history of coronary artery disease. PAST SURGICAL HISTORY: Cataract surgery, cholecystectomy, appendectomy. OUTPATIENT MEDICATIONS: 1. Ceftriaxone 1 g daily. 2. Finasteride. 3. Gabapentin. 4. Metoprolol tartrate 25 mg b.i.d. ALLERGIES: No known drug allergies. FAMILY HISTORY: His mother of a heart attack in her 80s. Father in his 50s of a heart attack. SOCIAL HISTORY: The patient had previously been living by himself on [address], but is currently at rehab. He is retired from [employer]. He denies tobacco or alcohol use. REVIEW OF SYSTEMS: Positive for right-sided facial weakness. Positive for syncope. Negative for changes in bowel or bladder habits. The patient does have an indwelling Stone catheter. He denies any fevers or chills. PHYSICAL EXAM: Height is 6 feet 3 inches, weight 208 pounds, temperature 98.1, heart rate of 60, blood pressure 128/78, respiratory rate is 18, oxygen saturation 94% on room air. Sclerae anicteric. Oropharynx is pink without erythema. Carotids are 2+ without bruits. JVD is normal. Thyroid is normal. Cardiac Exam: S1, S2 without any murmurs, rubs, or gallops. Lungs are clear to auscultation bilaterally. There is no dullness to percussion. Abdomen is soft , nontender, nondistended with normoactive bowel sounds. Extremities show no edema. He has 2+ pulses throughout. The patient is awake, alert, and oriented. He moves all 4 extremities equally. DIAGNOSTIC STUDIES/LAB DATA: Echocardiogram on 07/18/18 demonstrates ejection fraction of 45% to 50%, no focal wall motion abnormalities, no significant valvular abnormalities. Laboratory studies: Chemistries within normal limits. BUN 18, creatinine 0.9. AST and ALT are normal. Troponin is negative. TSH 2.6. CBC within normal limits. EKG demonstrates sinus bradycardia with T-wave flattening. IMPRESSION AND PLAN: The patient is an 78-year-old gentleman with recent history of Lyme meningitis, who was admitted to the hospital with a syncopal episode. The patient's initial EKG showed sinus bradycardia, but no evidence of AV block. For now, my recommendation is to stop his beta-mina. The patient will continue on telemetry overnight. The patient may benefit from long-term outpatient monitoring. I do not think any other cardiac testing is necessary. [id number]/[facility] #: [id number] [facility]ALTHJocelyn
[2018-08-10] MEDS: Acetaminophen TAB* 325 MG PO PRN (00:25)
[2018-08-10 05:49] LABS: INR 0.98 (0.77-1.02)
[2018-08-10 06:09] LABS: EGFR Non-African American 84.4 (>60)
[2018-08-10] MEDS: Heparin VIAL(*) 5000 UNITS/ML VIAL (FIVE THOUSAND) SUBCUT SCH ×3 (06:12→23:07)
[2018-08-10 07:43] LABS: ABS Basophils 0 10^3/ul (0-0.2); ABS Eosinophils 0.1 10^3/ul (0-0.6); ABS Lymphocytes 1.7 10^3/ul (1.0-4.8); ABS Monocytes 0.4 10^3/ul (0-0.8); ABS Neutrophils 2.7 10^3/ul (1.5-7.7); ABS Nucleated RBC 0 10^3/ul; Eosinophil % 2.7 % (0-6); Hematocrit 39 % (42-52); Hemoglobin 13.3 g/dl (14.0-18.0); Lymphocyte % 34.1 % (25-47); Mean Corpuscular HGB Conc 35 g/dl (31-36); Mean Corpuscular Hemoglobin 34 pg (27-31); Mean Corpuscular Volume 98 fL (80-94); Mean Platelet Volume 7.6 um3 (7.4-10.4); Nucleated Red Blood Cells % 0; Platelet Count 227 10^3/ul (150-450); Red Blood Count 3.95 10^6/ul (4.00-5.40); Red Cell Distribution Width 13 % (10.5-15)
[2018-08-10] MEDS: Gabapentin CAP(*) 300 MG PO SCH ×3 (10:21→20:41)
[2018-08-10] MEDS: Omeprazole CAP* 20 MG PO SCH (10:23)
[2018-08-10] MEDS: Finasteride TAB* 5 MG PO SCH (10:23)
[2018-08-10] MEDS: Aspirin 81 mg CHEW TAB* 81 MG TAB.CHEW PO SCH (10:24)
[2018-08-10] MEDS: Tamsulosin CAP* 0.4 MG PO SCH (10:24)
[2018-08-10] MEDS: DOXYcycline CAP(*) 100 MG PO SCH ×2 (10:24→20:40)
[2018-08-10] MEDS: Metoprolol Tartrate TAB* 25 MG PO SCH ×2 (10:26→20:42)
--- NOTE | 2018-08-10 14:46 | PN ---
Progress Note - Progress Note Date of Service: 08/10/18 Note: I spoke to a staff member at [facility]. She stated the patient had his Stone changed in the ED 07/31 or 08/01.
[2018-08-10] MEDS: Latanoprost 0.005%* 2.5 ml BTL RIGHT EYE SCH (20:43)
[2018-08-11] MEDS: Heparin VIAL(*) 5000 UNITS/ML VIAL (FIVE THOUSAND) SUBCUT SCH (06:00)
[2018-08-11 06:55] LABS: ABS Basophils 0 10^3/ul (0-0.2); ABS Eosinophils 0.2 10^3/ul (0-0.6); ABS Lymphocytes 1.4 10^3/ul (1.0-4.8); ABS Monocytes 0.4 10^3/ul (0-0.8); ABS Neutrophils 3.5 10^3/ul (1.5-7.7); ABS Nucleated RBC 0 10^3/ul; Eosinophil % 2.8 % (0-6); Hematocrit 38 % (42-52); Hemoglobin 13.3 g/dl (14.0-18.0); Mean Corpuscular HGB Conc 35 g/dl (31-36); Mean Corpuscular Hemoglobin 34 pg (27-31); Mean Corpuscular Volume 97 fL (80-94); Mean Platelet Volume 6.8 um3 (7.4-10.4); Nucleated Red Blood Cells % 0; Platelet Count 229 10^3/ul (150-450); Red Blood Count 3.88 10^6/ul (4.00-5.40); Red Cell Distribution Width 13 % (10.5-15); White Blood Count 5.5 10^3/ul (3.5-10.8)
[2018-08-11] MEDS: Tamsulosin CAP* 0.4 MG PO SCH (08:56)
[2018-08-11] MEDS: DOXYcycline CAP(*) 100 MG PO SCH (08:56)
[2018-08-11] MEDS: Gabapentin CAP(*) 300 MG PO SCH (08:56)
[2018-08-11] MEDS: Finasteride TAB* 5 MG PO SCH (08:57)
[2018-08-11] MEDS: Aspirin 81 mg CHEW TAB* 81 MG TAB.CHEW PO SCH (08:57)
[2018-08-11] MEDS: Metoprolol Tartrate TAB* 25 MG PO SCH (08:58)
[2018-08-11] MEDS: Omeprazole CAP* 20 MG PO SCH (09:00)
[2018-08-11] MEDS ORDERED: Lidocain 1% EPI 1:100,000 * 30 ML MDV ONE (09:41)
--- NOTE | 2018-08-11 10:46 | PN ---
Subjective Date of Service: 08/11/18 - CC: Syncope, LOC sitting Interval History: No new c/o. No dizziness or recurrent LOC. Medications Active Medications: Acetaminophen (Tylenol Tab*) 650 mg PO Q4H PRN PRN Reason: FEVER/PAIN Last Admin: 08/10/18 00:25 Dose: 650 mg Aspirin (Aspirin 81 Mg Chew Tab*) 81 mg PO DAILY [facility] Last Admin: 08/11/18 08:57 Dose: 81 mg Benzonatate (Tessalon Cap*) 100 mg PO TID PRN PRN Reason: COUGH Doxycycline Hyclate (Vibramycin Cap(*)) 100 mg PO BID [facility] Last Admin: 08/11/18 08:56 Dose: 100 mg Finasteride (Proscar Tab*) 5 mg PO DAILY [facility] Last Admin: 08/11/18 08:57 Dose: 5 mg Gabapentin (Neurontin Cap(*)) 900 mg PO TID [facility] Last Admin: 08/11/18 08:56 Dose: 900 mg Heparin Sodium (Porcine) (Heparin Vial(*)) 5,000 units SUBCUT Q8HR [facility] Last Admin: 08/11/18 06:00 Dose: 5,000 units Latanoprost (Xalatan 0.005%*) 1 drop RIGHT EYE 2100 [facility] Last Admin: 08/10/18 20:43 Dose: 1 drop Metoprolol Tartrate (Lopressor Tab*) 12.5 mg PO Q12HR [facility] Last Admin: 08/11/18 08:58 Dose: 12.5 mg Omeprazole (Prilosec Cap*) 20 mg PO DAILY [facility] Last Admin: 08/11/18 09:00 Dose: 20 mg Pilocarpine HCl (Pilocarpine 1% Opth.Rhianna*) 1 drop LEFT EYE Q30D [facility] Last Admin: 08/09/18 20:25 Dose: 1 drop Tamsulosin HCl (Flomax Cap*) 0.4 mg PO DAILY [facility] Last Admin: 08/11/18 08:56 Dose: 0.4 mg Objective Vital Signs: Temp Pulse Resp BP Pulse Ox 98.2 F 64 20 112/77 98 08/11/18 07:33 08/11/18 07:33 08/11/18 08:56 08/11/18 07:33 08/11/18 07:33 Oxygen Devices in Use Now: None Appearance: elderly gentleman, lying in gurney, no distress. Eyes: No Scleral Icterus, PERRLA Ears/Nose/Mouth/Throat: Mucous Membranes Moist Neck: NL Appearance and Movements; NL JVP Respiratory: Symmetrical Chest Expansion and Respiratory Effort, Clear to Auscultation Cardiovascular: NL Sounds; No Murmurs; No JVD, RRR, - - scarring on L chest wall from prior sx old, healed Abdominal: NL Sounds; No Tenderness; No Distention - obese Lymphatic: No Cervical Adenopathy Extremities: No Edema Skin: No Rash or Ulcers Neurological: Alert and Oriented x 3 Lines/Tubes/Other Access: Clean, Dry and Intact Peripheral IV Laboratory Results: 08/11/18 06:46 08/10/18 05:00 INR (Anticoag Therapy) 0.98 (0.77-1.02) 08/10/18 05:00 Total Bilirubin 1.40 mg/dL (0.2-1.0) H 08/09/18 12:06 AST 19 U/L (13-39) 08/09/18 12:06 ALT 31 U/L (7-52) 08/09/18 12:06 Alkaline Phosphatase 75 U/L (34-104) 08/09/18 12:06 B-Natriuretic Peptide 60 pg/mL (-100) 08/09/18 12:06 Total Protein 6.3 g/dL (6.4-8.9) L 08/09/18 12:06 Albumin 3.8 g/dL (3.2-5.2) 08/09/18 12:06 Globulin 2.5 g/dL (2-4) 08/09/18 12:06 Albumin/Globulin Ratio 1.5 (1-3) 08/09/18 12:06 TSH 2.61 mcIU/mL (0.34-5.60) 08/09/18 12:06 08/09/18 08/09/18 08/09/18 12:06 16:15 18:48 Troponin I 0.00 0.00 0.00 Diagnostic Imaging: Echo 07/17/18: EF 50%, no focal wall motion abnormalities. Abnormal diastolic filling, AV sclerosis. Aorta dilated. EKG Data: ECG 08/10/18: NSR 70 bpm, low volts limb leads, flattened T waves diffusely. Assessment/Plan 78 yo male diagnosed with Lyme 07/17/18 (IgG and IgM +) and Lyme meningitus now presents with LOC sitting after exercising. Slow idioventricular rhythm seen on monitor off metoprolol. Hx old SC, but no focal scar noted on echo. Now on 1/2 his prior metoprolol and feeling well. Implantable EM in, I set lower detection limit at 120 bpm in case slow VT. EM will look for both bradyarrhythmias (common with Lyme) and tachyarrhythmias. Pt should f/u with Dr West in 1 week for a wound check.
[2018-08-11 12:50] VITALS: BP 101/69
--- NOTE | 2018-08-11 13:38 | PN ---
Subjective Date of Service: 08/10/18 Interval History: No new c/o. Objective Active Medications: Acetaminophen (Tylenol Tab*) 650 mg PO Q4H PRN PRN Reason: FEVER/PAIN Last Admin: 08/10/18 00:25 Dose: 650 mg Aspirin (Aspirin 81 Mg Chew Tab*) 81 mg PO DAILY [facility] Last Admin: 08/11/18 08:57 Dose: 81 mg Benzonatate (Tessalon Cap*) 100 mg PO TID PRN PRN Reason: COUGH Doxycycline Hyclate (Vibramycin Cap(*)) 100 mg PO BID [facility] Last Admin: 08/11/18 08:56 Dose: 100 mg Finasteride (Proscar Tab*) 5 mg PO DAILY [facility] Last Admin: 08/11/18 08:57 Dose: 5 mg Gabapentin (Neurontin Cap(*)) 900 mg PO TID [facility] Last Admin: 08/11/18 08:56 Dose: 900 mg Heparin Sodium (Porcine) (Heparin Vial(*)) 5,000 units SUBCUT Q8HR [facility] Last Admin: 08/11/18 06:00 Dose: 5,000 units Latanoprost (Xalatan 0.005%*) 1 drop RIGHT EYE 2100 [facility] Last Admin: 08/10/18 20:43 Dose: 1 drop Metoprolol Tartrate (Lopressor Tab*) 12.5 mg PO Q12HR [facility] Last Admin: 08/11/18 08:58 Dose: 12.5 mg Omeprazole (Prilosec Cap*) 20 mg PO DAILY [facility] Last Admin: 08/11/18 09:00 Dose: 20 mg Pilocarpine HCl (Pilocarpine 1% Opth.Rhianna*) 1 drop LEFT EYE Q30D [facility] Last Admin: 08/09/18 20:25 Dose: 1 drop Tamsulosin HCl (Flomax Cap*) 0.4 mg PO DAILY [facility] Last Admin: 08/11/18 08:56 Dose: 0.4 mg Vital Signs - 8 hr 08/11/18 08/11/18 08/11/18 07:33 08:56 11:17 Temperature 98.2 F 97.8 F Pulse Rate 64 72 Respiratory 20 20 20 Rate Blood Pressure 112/77 114/65 (mmHg) O2 Sat by Pulse 98 98 Oximetry 08/11/18 08/11/18 11:27 12:00 Temperature 97 F Pulse Rate 68 Respiratory 20 16 Rate Blood Pressure 101/69 (mmHg) O2 Sat by Pulse 100 Oximetry Oxygen Devices in Use Now: None Appearance: Alert, in a chair. Somewhat irritable but otherwise looks comfortable. Eyes: No Scleral Icterus Respiratory: Symmetrical Chest Expansion and Respiratory Effort, Clear to Auscultation, Clear to Percussion Cardiovascular: NL Sounds; No Murmurs; No JVD, No Edema, - - rapid but regular Extremities: No Edema, No Clubbing, Cyanosis, - Skin: No Rash or Ulcers, No Nodules or Sclerosis, - Neurological: Alert and Oriented x 3, NL Sensation, NL Gait, NL Muscle Strength and Tone, - Result Diagrams: 08/11/18 06:46 08/10/18 05:00 Assess/Plan/Problems-Billing Assessment: - Patient Problems (1) Syncope Current Visit: Yes Status: Acute Code(s): R55 - SYNCOPE AND COLLAPSE SNOMED Code(s): 093862663 Comment: Occurred while sitting, suspicious for arrhythmia. He became tachycardic when his metorpolol was withheld, now on half his prior dose. (2) Lyme meningitis Current Visit: Yes Status: Acute Code(s): A69.21 - MENINGITIS DUE TO LYME DISEASE SNOMED Code(s): 429146165 Comment: Continue doxycycline, finish 08/19/18. (3) Stone catheter in place Current Visit: No Status: Acute Code(s): Z92.89 - PERSONAL HISTORY OF OTHER MEDICAL TREATMENT SNOMED Code(s): 878786258 Comment: Last change about 07/31/18, cont finasteride and tamsulosin if considering voiding trial. (4) CAD (coronary artery disease) Current Visit: Yes Status: Acute Code(s): I25.10 - ATHSCL HEART DISEASE OF [place] CORONARY ARTERY W/O ANG PCTRS SNOMED Code(s): 06332574 Comment: Continue ASA, metorpolol.
--- NOTE | 2018-08-11 13:50 | PN ---
Progress Note - Progress Note Date of Service: 08/11/18 Note: Time spent on discharge 45 minutes, including exam of patient, discussion with patiadry, nurse, CM, Dr. Gates, review of EMR and preparation of discharge documents.
--- NOTE | 2018-08-12 03:42 | TRS ---
CC: Dr. Freeman; [facility] * TRANSFER SUMMARY: DATE OF ADMISSION: DATE OF TRANSFER: 08/11/18 HISTORY OF PRESENT ILLNESS: This 78-year-old man was transferred from [facility] after a syncopal episode during physical therapy. Actually after completing physical therapy, he went back to his room, was sitting in his chair waiting for another physical therapy session and then apparently passed out. He woke up surrounded by people around him. He had no other symptoms. There were no palpitations, chest pain, or shortness of breath. He has not had this before. The rest of the history is detailed in the admission note. The patient was admitted to a monitor unit. His metoprolol was withheld. He was a little bradycardic. After a day off the metoprolol, his heart rate was about 110 or so. His metoprolol was restarted at half of the prior dose. He seemed to do well with this with heart rate 64 to 72 on the day of discharge. He remained asymptomatic. He had a loop recorder inserted on the day of discharge. FINAL DIAGNOSES: 1. Syncope. 2. Coronary artery disease. 3. Caceres's palsy. 4. Finishing treatment for Lyme meningitis. 5. Glaucoma. 6. Urinary retention. If he is not going to have a voiding trial, but will simply have a chronic Stone catheter, then I would recommend stopping the tamsulosin and finasteride. If a voiding trial is contemplated, then he should continue on all of his medications. DISCHARGE MEDICATIONS: 1. Metoprolol tartrate 12.5 mg b.i.d. 2. Gabapentin 900 mg t.i.d. 3. Finasteride 5 mg daily. 4. Timolol 0.25% right eye b.i.d. 5. Pilocarpine 1% 1 drop left eye as prescribed. 6. Omeprazole 20 mg daily. 7. Aspirin 81 mg daily. 8. Travoprost 0.004% 1 drop right eye in the evening. 9. Benzonatate 100 mg t.i.d. p.r.n. 10. Tamsulosin 0.4 mg daily. 11. Acetaminophen 650 mg every 6 hours p.r.n. 12. Vitamin B12 1000 mcg intramuscularly monthly. 13. Doxycycline 100 mg b.i.d. through 08/19/18, then stop. 14. Magnesium hydroxide 30 mL every 6 hours p.r.n. 15. Nystatin powder to affected areas t.i.d. FOLLOWUP: The patient will follow up with Dr. West in 1 week for a wound check. CONDITION ON DISCHARGE: Stable. DISPOSITION ON DISCHARGE: Transfer to [facility]. [id number]/[facility] #: [id number] MTDD
--- NOTE | 2018-08-13 03:46 | OP ---
CC: Dr. West; primary care physician, Dr. Freeman * DATE OF OPERATION: 08/11/18 - ROOM #453 DATE OF : 36 SURGEON: Bernadine Gates MD PRE-OP DIAGNOSES: Syncope, history of idioventricular rhythm. POST-OP DIAGNOSES: Syncope, history of idioventricular rhythm. OPERATIVE PROCEDURE: Event monitor implantation. INDICATIONS: The indications, risks and benefits were discussed with the patient and he was amenable to proceeding. DESCRIPTION OF PROCEDURE: The left fourth intercostal space was identified just lateral to the sternum and this area was prepped and draped in the usual sterile fashion. A time-out was called. Following this, the patient received 10 cc of 1% lidocaine. When following this, using a blade, a small christopher was fashioned in the left fourth intercostal space just lateral to the sternum. Using the device in the kit, a small tunnel was made at 45-degree angle and the device was then pushed in using the plunger, sensing was borderline and variable from 0.17 to 0.30. We tried different additional angles from this incision without success. He has a scar inferior to this area from distant surgery and this prevented positioning vertically. We therefore went up in inner space and had adequate sensing with vertical implantation. Once we had good positioning, Steri-Strips were placed over both nicks followed by an external Mepilex dressing. FINDINGS: The device is a [employer] Reveal LINQ TruRhythm, [id number], serial # [id number], R waves were sensed at 0.23 millivolts in higher settings. Detection rate was decreased to 120 beats a minute for 16 beats or longer and jaydon detection with 30 beats a minute for 4 beats or longer and pauses of 3 seconds or longer. The patient was hemodynamically stable throughout the procedure and there were no complications. Estimated blood loss less than 1 cc. [id number]/[facility] #: [id number] [facility]ITALJocelyn
== END 2018-08-11 15:00 | DRG 261 ==
LOC: ED 11:44 → MEDTELE 14:24 → OBSVTOIN 08-10 10:00
PROVIDERS: ADMIT Internal Medicine; ATTEND Internal Medicine
PROC: 0JH602Z Insertion of Monitoring Device into Chest Subcutaneous Tissue and Fascia, Open Approach (ICD-10-PCS; principal; 2018-08-10)
DX: I49.5 Sick sinus syndrome (principal); A69.21 Meningitis due to Lyme disease; N40.0 Benign prostatic hyperplasia without lower urinary tract symptoms; H54.40 Blindness, one eye, unspecified eye; H91.90 Unspecified hearing loss, unspecified ear; R40.2412 Glasgow coma scale score 13-15, at arrival to emergency department; G51.0 Bell's palsy; G62.9 Polyneuropathy, unspecified; I25.10 Atherosclerotic heart disease of native coronary artery without angina pectoris; G89.29 Other chronic pain; I65.22 Occlusion and stenosis of left carotid artery; Z66 Do not resuscitate; I49.3 Ventricular premature depolarization; H40.9 Unspecified glaucoma; R33.9 Retention of urine, unspecified; Z79.82 Long term (current) use of aspirin; Z95.5 Presence of coronary angioplasty implant and graft; Z82.49 Family history of ischemic heart disease and other diseases of the circulatory system; Z87.891 Personal history of nicotine dependence; Z90.89 Acquired absence of other organs; Z90.49 Acquired absence of other specified parts of digestive tract; I25.2 Old myocardial infarction
CPT/HCPCS: 33282; 36415; 70450; 71045; 80048; 80053; 80320; 82140; 82550; 83605; 83735; 83880; 84443; 84484; 85025; 85379; 85610; 93005; 99284; A9270-GY; C1764; G0378; G0480; J1644

== ENCOUNTER 2018-12-16 17:54 | Inpatient (IN) | payer MEDICARE ==
[2018-12-16] MEDS ORDERED: Ondansetron INJ* 2 MG/ML VIAL ONE (18:19)
[2018-12-16] MEDS ORDERED: Ondansetron INJ* 2 MG/ML VIAL IV ONE (18:22)
[2018-12-16] MEDS ORDERED: Morphine VIAL* 10 MG/ML 1 ML VIAL IV ONE ×2 (18:22→20:29)
[2018-12-16] MEDS ORDERED: NS 0.9% 1000 ML** 1,000 ML IV ONE ×2 (18:22→23:06)
--- NOTE | 2018-12-16 18:26 | ED ---
Abdominal Pain/Male - HPI Summary HPI Summary: This patient is a 78 year old male brought in by EMS with a CC of periumbilical pain that began suddenly at 1800 today. He rates the pain 10/10 in severity and states it radiates into his back. He also c/o nausea without vomiting. He has had multiple abd surgeries but state none recently. - History of Current Complaint Chief Complaint: EDAbdPain Stated Complaint: BACK/CHEST PAIN Hx Obtained From: Patient Onset/Duration: Lasting Minutes, Still Present Timing: Constant Severity Initially: Severe Severity Currently: Severe Pain Intensity: 10 Pain Scale Used: 0-10 Numeric Location: Umbilical Radiates: Yes Radiates to: Back Associated Signs And Symptoms: Positive: Nausea. Negative: Vomiting - Allergies/Home Medications Allergies/Adverse Reactions: Allergies Allergy/AdvReac Type Severity Reaction Status Date / Time No Known Allergies Allergy Verified 07/17/18 12:20 PMH/Surg Hx/FS Hx/Imm Hx Endocrine/Hematology History: Denies: Hx Anticoagulant Therapy, Hx Diabetes Cardiovascular History: Denies: Hx Hypertension, Hx Pacemaker/ICD Comment Only: Other Cardiovascular Problems/Disorders - SD Respiratory History: Denies: Hx Asthma, Hx Chronic Obstructive Pulmonary Disease (COPD), Hx Lung Cancer, Hx Pulmonary Embolism GI History: Denies: Hx Gastroesophageal Reflux Disease History: Reports: Hx Benign Prostatic Hyperplasia Comment Only: Other Problems/Disorders - urine retention Musculoskeletal History: Reports: Hx Back Problems Sensory History: Reports: Hx Contacts or Glasses, Hx Legally Blind - Rt eye, Hx Hearing Problem Denies: Hx Cataracts, Hx Eye Injury, Hx Eye Prosthesis, Hx Glaucoma, Hx Macular Degeneration, Hx Deafness, Hx Hearing Aid Opthamlomology History: Reports: Hx Contacts or Glasses, Hx Legally Blind - Rt eye Denies: Hx Cataracts, Hx Eye Injury, Hx Eye Prosthesis, Hx Glaucoma, Hx Macular Degeneration Neurological History: Reports: Hx Headaches Psychiatric History: Denies: Hx Panic Disorder - Surgical History Surgery Procedure, Year, and Place: stents in heart, tonsils, appendix, hernia x9, gallbladder, right ankle, right femur Infectious Disease History: No Infectious Disease History: Denies: Hx Clostridium Difficile, Hx Hepatitis, Hx of Known/Suspected MRSA, Hx Shingles, Hx Tuberculosis, Hx Known/Suspected VRE, Traveled Outside the [place] in Last 30 Days - Family History Known Family History: Positive: Cardiac Disease - Social History Alcohol Use: None Substance Use Type: Reports: None Smoking Status (MU): Former Smoker Review of Systems Negative: Fever Positive: Abdominal Pain, Nausea. Negative: Vomiting All Other Systems Reviewed And Are Negative: Yes Physical Exam - Summary Physical Exam Summary: VITAL SIGNS: Reviewed. GENERAL: Patient is a well-developed and nourished male who is lying comfortable in the stretcher. Acute distress secondary to pain HEAD AND FACE: No signs of trauma. No ecchymosis, hematomas or skull depressions. No sinus tenderness. EYES: PERRLA, EOMI x 2, No injected conjunctiva, no nystagmus. EARS: Hearing grossly intact. Ear canals and tympanic membranes are within normal limits. MOUTH: Oropharynx within normal limits. NECK: Supple, trachea is midline, no adenopathy, no JVD, no carotid bruit, no c- spine tenderness, neck with full ROM. CHEST: Symmetric, no tenderness at palpation LUNGS: Clear to auscultation bilaterally. No wheezing or crackles. CVS: Regular rate and rhythm, S1 and S2 present, no murmurs or gallops appreciated. ABDOMEN: Soft, pain in LLQ No signs of distention. No rebound no guarding, and no masses palpated. Bowel sounds are decreased. There are no bounding pulses in the epigastric region. There is an indwelling foely catheter. EXTREMITIES: FROM in all major joints, no edema, no cyanosis or clubbing. NEURO: Alert and oriented x 3. No acute neurological deficits. Speech is normal and follows commands. SKIN: Dry and warm Triage Information Reviewed: Yes Vital Signs On Initial Exam: Initial Vitals Temp Pulse Resp BP Pulse Ox 96.1 F 57 17 182/98 97 12/16/18 18:02 12/16/18 18:02 12/16/18 18:02 12/16/18 18:02 12/16/18 18:02 Vital Signs Reviewed: Yes Diagnostics - Vital Signs Vital Signs Temp Pulse Resp BP Pulse Ox 12/16/18 18:02 96.1 F 57 17 182/98 97 - Laboratory Result Diagrams: 12/17/18 06:57 12/17/18 06:57 Lab Statement: Any lab studies that have been ordered have been reviewed, and results considered in the medical decision making process. - CT CT ABD/Pelvis CT Interpretation Completed By: Radiologist Summary of CT Findings: 1. No CT findings to correlate with patient's symptomatology. 2. Recurrent anterior abdominal wall hernias one containing fat , other. containing a partial loop of colon. No obstruction or strangulation. 3. Bosniak type I renal cysts. No followup indicated. 4. Celiac artery aneurysm. DR Wong has reviewed this report. - EKG 1915 Cardiac Rate: Other Rate EKG Rhythm: Atrial Fibrillation - at 72 bpm Summary of EKG Findings: no st elevations Re-Evaluation - Re-Evaluation First Eval Re-Evaluation Time: 21:14 Comment: The patient is not having any pain at this time. Abdominal Pain Fem Course/Dx - Course Assessment/Plan: Blood work without any significant abnormality except for sodium 134, glucose of 1:30, lactic acid is 2.5, total bili is 1.5, troponin 0.00, urinalysis positive for UTI. In the ED the patient was given IV fluids, Zofran for nausea and morphine for pain. In the ED course and the patient was given Rocephin for in the UTI. In reassessment of the abdominal pain at 9:15 PM the patient reports that the pain has resolved. However the patient is an elderly gentleman who had nausea and vomiting and has a UTI therefore I discuss my physical exam and findings with and Dr. Blackwell from the hospitalist services who accepted the patient for admission. At this point the patient is hemodynamically stable alert and oriented 3. - Diagnoses Differential Diagnosis/HQI/PQRI: Diverticulitis, Renal Colic, Urinary Tract Infection Provider Diagnoses: Lower abdominal pain, UTI (urinary tract infection) - Provider Notifications Discussed Care Of Patient With: Vilma Blackwell Time Discussed With Above Provider: 21:15 Instructed by Provider To: Admit As Inpatient Discharge - Sign-Out/Discharge Documenting (check all that apply): Patient Departure - admitted Patient Received Moderate/Deep Sedation with Procedure: No - Discharge Plan Condition: Fair Disposition: ADMITTED TO [facility] - Billing Disposition and Condition Condition: FAIR Disposition: Admitted to [facility] - Attestation Statements Document Initiated by Scribe: Yes Documenting Scribe: Beto Pettit Provider For Whom Scribe is Documenting (Include Credential): Don Wong MD Scribe Attestation: IBeto , scribed for Don Wong MD on 12/17/18 at 2057. Scribe Documentation Reviewed: Yes Provider Attestation: The documentation as recorded by the scribe, Beto Pettit accurately reflects the service I personally performed and the decisions made by me, Don Wong MD Status of Scribvu Document: Viewed
[2018-12-16 18:39] LABS: ABS Basophils 0.1 10^3/ul (0-0.2); ABS Eosinophils 0.1 10^3/ul (0-0.6); ABS Lymphocytes 2.3 10^3/ul (1.0-4.8); ABS Monocytes 0.7 10^3/ul (0-0.8); ABS Neutrophils 5.6 10^3/ul (1.5-7.7); ABS Nucleated RBC 0 10^3/ul; Eosinophil % 1.4 %; Hematocrit 47 % (42-52); Hemoglobin 16.2 g/dl (14.0-18.0); Lymphocyte % 26.7 %; Mean Corpuscular HGB Conc 34 g/dl (31-36); Mean Corpuscular Hemoglobin 33 pg (27-31); Mean Corpuscular Volume 96 fL (80-94); Mean Platelet Volume 7.8 fL (7.4-10.4); Nucleated Red Blood Cells % 0; Platelet Count 280 10^3/ul (150-450); Red Blood Count 4.91 10^6/ul (4.00-5.40); Red Cell Distribution Width 13 % (10.5-15); White Blood Count 8.8 10^3/ul (3.5-10.8)
[2018-12-16 18:46] LABS: INR 1.01 (0.77-1.02)
[2018-12-16 18:59] LABS: ALT 15 U/L (7-52); Albumin 4.5 g/dL (3.2-5.2); Albumin/Globulin Ratio 1.5 (1-3); Alkaline Phosphatase 76 U/L (34-104); Amylase 34 U/L (29-103); BUN/Creatinine Ratio 19.8 (8-20); Blood Urea Nitrogen 18 mg/dL (6-24); C Reactive Protein < 1.00 mg/L (<8.01); CO2 Carbon Dioxide 23 mmol/L (22-32); Calcium 9.1 mg/dL (8.6-10.3); Chloride 101 mmol/L (101-111); EGFR Non-African American 80.2 (>60); Globulin 3.1 g/dL (2-4); Glucose 130 mg/dL (70-100); Sodium 134 mmol/L (135-145); Total Protein 7.6 g/dL (6.4-8.9)
[2018-12-16 19:00] LABS: Anion Gap 10 mmol/L (2-11)
[2018-12-16] MEDS ORDERED: Iohexol 300* (CONTRAST) 10 ML SDV IV ONE (19:07)
[2018-12-16 19:42] LABS: Potassium Redraw 3.6 mmol/L (3.5-5.0)
[2018-12-16 19:53] LABS: Urine Appearance Clear; Urine Bacteria 1+ (Absent); Urine Bilirubin Negative (Negative); Urine Blood Negative (Negative); Urine Color Straw; Urine Glucose Negative (Negative); Urine Ketones Trace (Negative); Urine Nitrite Positive (Negative); Urine Protein Negative (Negative); Urine Red Blood Cell Trace(0-2/hpf) (Absent); Urine Specific Gravity 1.005 (1.010-1.030); Urine Urobilinogen Negative (Negative); Urine White Blood Cell Trace(0-5/hpf) (Absent)
[2018-12-16] MEDS ORDERED: cefTRIAXone(*) 1 GM in NS 0.9% 50 ML* 50 ML IVPB ONE (21:14)
[2018-12-16] MEDS ORDERED: Ondansetron INJ* 2 MG/ML VIAL IV PRN ×2 (21:51→22:21)
[2018-12-16] MEDS ORDERED: Simethicone TAB* 80 MG TAB.CHEW PO PRN (22:20)
[2018-12-16] MEDS ORDERED: Morphine VIAL* 4 MG/ML VIAL (1 ml vial) IV PRN (22:20)
[2018-12-16] MEDS: Heparin VIAL(*) 5000 UNITS/ML VIAL (FIVE THOUSAND) SUBCUT SCH (23:54)
--- NOTE | 2018-12-17 00:15 | HP ---
CC: Mariusz Freeman MD * ADMISSION HISTORY AND PHYSICAL: DATE OF ADMISSION: 12/16/18 PRIMARY CARE PROVIDER: Mariusz Freeman MD ATTENDING PHYSICIAN: Vilma Blackwell MD * (DICTATED BY REJI BRYAN NP) HISTORY OF PRESENT ILLNESS: This is a pleasant 78-year-old male patient who was brought in by EMS today with complaint of sharp periumbilical pain that started approximately 2 hours prior to his arrival. He rated his pain as 10/ 10. He also had some nausea, but no vomiting. The patient does state that he has had many abdominal surgeries secondary to hernia repairs. He does have abdominal adhesions; however, he is reporting he has had normal bowel movements and he has been able to tolerate p.o. The patient in the emergency department did have a CAT scan of the abdomen to rule out obstruction given his significant history. The CAT scan of the abdomen and pelvis shows no current CT findings to correlate with current symptomatology. He has recurrent anterior abdominal wall hernias, one contains fat and the other is a partial loop of colon, but there is no obstruction or strangulation noted, celiac artery aneurysm, and a Bosniak type 1 renal cyst with no followup indicated. The patient also has an IVC filter that is noted to be patent on the CAT scan. The patient was given antibiotics. His urine was checked. He was noted to have urinary tract infection. A Stone catheter was inserted. Some of this pain was relieved after the Stone was inserted, however, because the patient was very weak and dehydrated, we were asked to evaluate the patient for admission. PAST MEDICAL HISTORY: Significant for: 1. BPH. 2. Urinary retention. 3. Glaucoma. He is legally blind in the right eye. 4. Also history of coronary artery disease with stents. PAST SURGICAL HISTORY: Includes: 1. Appendectomy. 2. Hernia repair x9 surgeries. 3. Cholecystectomy. 4. ORIF of the right ankle and femur. 5. Tonsillectomy as a child. HOME MEDICATIONS: Include: 1. Travoprost 1 drop right eye q.p.m. 2. Timolol 1 drop right eye 2 times a day. 3. Flomax 0.4 mg daily. 4. Pilocarpine ophthalmic solution 1 drop to left eye daily. 5. Omeprazole 20 mg daily. 6. Nystatin t.i.d. as needed. 7. Metoprolol tartrate 12.5 mg q.12 hours. 8. Milk of magnesia 30 mL p.o. q.6 hours as needed. 9. Gabapentin 900 mg p.o. t.i.d. 10. Proscar 5 mg p.o. daily. 11. Doxycycline 100 mg p.o. b.i.d. 12. Vitamin B12 injections 1000 mcg monthly. 13. Tessalon 100 mg p.o. t.i.d. as needed. 14. Aspirin 81 mg daily. 15. Tylenol 650 mg p.o. q.6 hours as needed. FAMILY HISTORY: Both parents with coronary artery disease, of [place]. SOCIAL HISTORY: The patient states he has a very remote history of smoking. Currently, does not smoke, does not drink alcohol, and denies any illicit drug use. His healthcare proxy is a neighbor, name is Adam Newsome, his phone number is [phone]. REVIEW OF SYSTEMS: The patient is reporting a gassy like feeling in the abdomen. Nausea has improved. He has no vomiting. He denies any arthralgias or myalgias. No fevers or chills. He does have some general weakness and fatigue and some suprapubic pain and otherwise denies any further constitutional complaints. PHYSICAL EXAMINATION GENERAL: Reveals an elderly gentleman, well-nourished, in no acute distress; however, he is wincing with some pain intermittently. VITAL SIGNS: Blood pressure 169/92, heart rate 62, respiratory rate 19, O2 saturation 99% on room air with a temperature of 96.1. HEENT: The patient is atraumatic, normocephalic. PERRLA with nonicteric sclerae. Oral mucosa is very dry. Tongue is midline. NECK: Supple, nontender. No JVD noted. No carotid bruits auscultated. LUNGS: Clear bilaterally to auscultation with no wheezing, rhonchi, or rales. CARDIOVASCULAR: S1, S2 present. Rate and rhythm are regular with no murmurs, gallops, or rubs noted. ABDOMEN: Soft, nontender, nondistended. He has positive bowel sounds in all 4 quadrants. There is very mild tenderness in the suprapubic region and inferior to the umbilicus. There was no guarding or rebound noted. : He has a Stone catheter inserted draining clear yellow urine. MUSCULOSKELETAL: There is no clubbing, no cyanosis. He has no edema. He has + 2 distal pulses palpable. He is generally weak and has an inability to ambulate at this time. NEUROLOGIC: He is slow to speak, but he is entirely appropriate with no focal deficits. PSYCHIATRIC: Cooperative and appropriate. DIAGNOSTIC STUDIES/LAB DATA: WBCs 8.8, RBCs 4.91, hemoglobin 16.2, hematocrit 47, platelets 280. Sodium 134, potassium 3.6, chloride 101, CO2 of 23, BUN 18, creatinine 0.91, GFR is 80.2, glucose 130, lactic acid 2.5, calcium 9.1. Total bilirubin 1.50, AST 22, ALT 15, alk phos 76. Troponin is negative at 0.00. CRP is less than 1. BNP is 91. Protein 7.6, albumin 4.5, globulin 3.1. Lipase is less than 10, amylase is 34. Urinalysis shows straw, clear-colored urine, specific gravity of 1.005, negative protein, trace ketones, negative blood, positive nitrites, negative bilirubin, trace leukocyte esterase, 1+ bacteria, trace rbc's, trace wbc's. Imaging: CAT scan as noted above. IMPRESSION: This is an 78-year-old male patient who presents to the emergency department with weakness and abdominal pain. 1. Abdominal pain. We have ruled out with the CAT scan any obstruction, which he is high risk for given his multiple surgeries and abdominal adhesions. However, the patient is having normal bowel movements and is not actively vomiting. Some of this abdominal pain may be radiating from his urinary retention and urinary tract infection. We have placed him empirically on ceftriaxone, likely culprit right now is Escherichia coli, but we will continue to follow urine cultures. 2. Urinary tract infection with urinary retention. As above, Stone catheter inserted. Continue ceftriaxone. The patient has also received IV fluids. He is not meeting sepsis criteria, even though his lactic acid is mildly elevated. He had received a bolus in the ED. We will recheck the lactic acid. He is not tachycardic. He has no fever and he is not hypotensive. 3. History of coronary artery disease, currently stable. 4. History of glaucoma. Continue his eye drops. 5. History of gastroesophageal reflux disease. Continue PPI. 6. History of neuropathy, on gabapentin, will be continued. 7. DVT prophylaxis. Heparin subcu. He is high risk given age and debility. 8. Diet. He can have a heart-healthy diet as tolerated. 9. Code status. The patient is a full code. The rest of the patient's course will be determined by further diagnostics, laboratories, any other input from other providers as warranted during this admission. Disposition: The patient will be admitted to observation. This plan of care has been discussed with Dr. Blackwell, the attending of this case , she is in agreement with the plan. TIME SPENT: Approximately 60 minutes interfacing with the patient, evaluating the chart, and determining plan of care. REJI BRYAN, RIVAS [id number]/[facility] #: [id number] [place]
[2018-12-17] MEDS: Acetaminophen TAB* 325 MG PO PRN ×3 (02:19→21:52)
[2018-12-17] MEDS: NS 0.9% 1000 ML** 1,000 ML IV SCH ×2 (04:28→22:25)
[2018-12-17] MEDS: Heparin VIAL(*) 5000 UNITS/ML VIAL (FIVE THOUSAND) SUBCUT SCH ×3 (04:36→21:32)
[2018-12-17 07:05] LABS: ABS Basophils 0 10^3/ul (0-0.2); ABS Eosinophils 0 10^3/ul (0-0.6); ABS Lymphocytes 1.1 10^3/ul (1.0-4.8); ABS Monocytes 1.3 10^3/ul (0-0.8); ABS Neutrophils 8.9 10^3/ul (1.5-7.7); ABS Nucleated RBC 0 10^3/ul; Eosinophil % 0 %; Hematocrit 43 % (42-52); Hemoglobin 14.6 g/dl (14.0-18.0); Lymphocyte % 9.7 %; Mean Corpuscular HGB Conc 34 g/dl (31-36); Mean Corpuscular Hemoglobin 32 pg (27-31); Mean Corpuscular Volume 95 fL (80-94); Mean Platelet Volume 7.6 fL (7.4-10.4); Nucleated Red Blood Cells % 0; Platelet Count 223 10^3/ul (150-450); Red Blood Count 4.53 10^6/ul (4.00-5.40); Red Cell Distribution Width 13 % (10.5-15); White Blood Count 11.4 10^3/ul (3.5-10.8)
[2018-12-17 07:24] LABS: Calcium 8.8 mg/dL (8.6-10.3); EGFR Non-African American 71.9 (>60); Potassium 4.3 mmol/L (3.5-5.0)
[2018-12-17] MEDS: Aspirin 81 mg CHEW TAB* 81 MG TAB.CHEW PO SCH (07:36)
[2018-12-17] MEDS: Pantoprazole TAB * 40 MG TAB PO SCH (07:36)
[2018-12-17] MEDS: Gabapentin CAP(*) 300 MG PO SCH ×3 (07:36→21:33)
[2018-12-17] MEDS: Finasteride TAB* 5 MG PO SCH (07:36)
[2018-12-17] MEDS: Metoprolol Tartrate TAB* 25 MG PO SCH ×2 (07:37→21:31)
[2018-12-17] MEDS: Timolol 0.25% OPHTH.SOLN* BTL RIGHT EYE SCH ×2 (07:39→21:32)
[2018-12-17] MEDS: Tamsulosin CAP* 0.4 MG PO SCH (07:39)
[2018-12-17] MEDS ORDERED: Pilocarpine 1% OPTH.SOL* 15 ML BTL LEFT EYE SCH (09:00)
[2018-12-17] MEDS: Nystatin TOP POWDER* 15 GM BTL TOPICAL SCH ×2 (10:02→12:49)
--- NOTE | 2018-12-17 14:21 | PN ---
Subjective Date of Service: 12/17/18 Interval History: Mr. Jefferson is feeling ok today. He reports that his abd pain is improved, but he still is having some epigastric pain. This waxes and wanes. He denies CP, SOB , N/V, diaphoresis. He reports that his catheter is chronic, has been present for at least [address] Allen. Could not remember when his catheter was last changed, but nursing reports it was changed by Alejandro on . Family History: Unchanged from Admission Social History: Unchanged from Admission Past Medical History: Unchanged from Admission Objective Active Medications: Acetaminophen (Tylenol Tab*) 650 mg PO Q4H PRN FEVER/PAIN Aspirin (Aspirin 81 Mg Chew Tab*) 81 mg PO DAILY [facility] Docusate Sodium (Colace Cap*) 100 mg PO BID PRN CONSTIPATION Finasteride (Proscar Tab*) 5 mg PO DAILY [facility] Gabapentin (Neurontin Cap(*)) 900 mg PO TID [facility] Heparin Sodium (Porcine) (Heparin Vial(*)) 5,000 units SUBCUT Q8HR [facility] Ceftriaxone Sodium 1 gm/ (Sodium Chloride) 50 mls @ 200 mls/hr IVPB Q24H [facility] Sodium Chloride (Ns 0.9% 1000 Ml) 1,000 mls @ 75 mls/hr IV PER RATE [facility] Latanoprost (Xalatan 0.005%*) 1 drop RIGHT EYE QPM [facility] Magnesium Hydroxide (Milk Of Magnruddy Liq*) 30 ml PO Q6H PRN CONSTIPATION Metoprolol Tartrate (Lopressor Tab*) 12.5 mg PO Q12HR [facility] Morphine Sulfate (Morphine Vial*) 2 mg IV Q8H PRN abdominal pain Ondansetron HCl (Zofran Inj*) 4 mg IV Q6H PRN NAUSEA Pantoprazole Sodium (Protonix Tab*) 40 mg PO DAILY [facility] Simethicone (Mylicon Tab*) 80 mg PO Q6H PRN gas pain Tamsulosin HCl (Flomax Cap*) 0.4 mg PO DAILY [facility] Timolol Maleate (Timoptic Ophth.Soln 0.25%) 1 drop RIGHT EYE BID [facility] Vital Signs - 8 hr 12/17/18 12/17/18 12/17/18 07:36 08:00 10:07 Temperature 98.6 F Pulse Rate 52 Respiratory 18 16 16 Rate Blood Pressure 136/74 (mmHg) O2 Sat by Pulse 97 Oximetry 12/17/18 12/17/18 11:22 12:54 Temperature 98.1 F Pulse Rate 58 Respiratory 16 18 Rate Blood Pressure 136/77 (mmHg) O2 Sat by Pulse 100 Oximetry Oxygen Devices in Use Now: None Appearance: Elderly male laying in bed in NAD Eyes: No Scleral Icterus Ears/Nose/Mouth/Throat: Mucous Membranes Moist Neck: NL Appearance and Movements; NL JVP, Trachea Midline Respiratory: Symmetrical Chest Expansion and Respiratory Effort, Clear to Auscultation Cardiovascular: NL Sounds; No Murmurs; No JVD, RRR Abdominal: NL Sounds; No Tenderness; No Distention Extremities: No Edema Skin: No Rash or Ulcers Neurological: Alert and Oriented x 3 Lines/Tubes/Other Access: Clean, Dry and Intact Stone, Clean, Dry and Intact Peripheral IV Nutrition: Taking PO's Result Diagrams: 12/17/18 06:57 12/17/18 06:57 Assess/Plan/Problems-Billing Assessment: Mr. Jefferson is an 78 yo M with PMH of BPH with chronic Stone for retention, CAD with stents, and glaucoma; who presented with c/o abd pain and was found to have a UTI without other acute findings. - Patient Problems (1) UTI (urinary tract infection) Comment: - Catheter related, present on admission - Follows with Dr. Allen and catheter was last changed on 12/13 - Urine culture growing Enterobacter cloacae with >100k colonies - Continue ceftriaxone (2) Abdominal pain Code(s): R10.9 - UNSPECIFIED ABDOMINAL PAIN Comment: - Unclear etiology - Epigastric, intermittent and nontender to palpation - CT unremarkable for any acute findings - Continue simethicone (3) BPH (benign prostatic hyperplasia) Code(s): N40.0 - BENIGN PROSTATIC HYPERPLASIA WITHOUT LOWER URINRY TRACT SYMP Comment: - With chronic Stone for retention - Continue tamsulosin, finasteride (4) CAD (coronary artery disease) Code(s): I25.10 - ATHSCL HEART DISEASE OF [place] CORONARY ARTERY W/O ANG PCTRS Comment: - With history of stents - Continue aspirin, metoprolol (5) GERD (gastroesophageal reflux disease) Code(s): K21.9 - GASTRO-ESOPHAGEAL REFLUX DISEASE WITHOUT ESOPHAGITIS Comment : - Continue pantoprazole (6) Glaucoma Code(s): H40.9 - UNSPECIFIED GLAUCOMA Comment: - Continue latanoprost, timolol (7) DVT prophylaxis Comment: - Heparin SQ (8) DNR (do not resuscitate) Comment: Status and Disposition: Inpatient for IV antibiotics. Anticipate d/c home when medically stable, possibly over the weekend. Attending: Cullen Johnson
[2018-12-17] MEDS: Latanoprost 0.005%* 2.5 ml BTL RIGHT EYE SCH (17:49)
[2018-12-17] MEDS: cefTRIAXone(*) 1 GM in NS 0.9% 50 ML* 50 ML IVPB SCH (21:30)
[2018-12-18] MEDS: Magnesium Hydroxide LIQ* 30 ML UDC PO PRN ×2 (03:38→09:46)
[2018-12-18] MEDS: Acetaminophen TAB* 325 MG PO PRN ×2 (03:39→21:45)
[2018-12-18 06:15] LABS: ABS Basophils 0 10^3/ul (0-0.2); ABS Eosinophils 0 10^3/ul (0-0.6); ABS Monocytes 1.5 10^3/ul (0-0.8); ABS Neutrophils 8.5 10^3/ul (1.5-7.7); ABS Nucleated RBC 0 10^3/ul; Eosinophil % 0.1 %; Hematocrit 42 % (42-52); Hemoglobin 14.6 g/dl (14.0-18.0); Lymphocyte % 9.2 %; Mean Corpuscular HGB Conc 35 g/dl (31-36); Mean Corpuscular Hemoglobin 33 pg (27-31); Mean Corpuscular Volume 95 fL (80-94); Mean Platelet Volume 7.4 fL (7.4-10.4); Nucleated Red Blood Cells % 0; Platelet Count 218 10^3/ul (150-450); Red Blood Count 4.45 10^6/ul (4.00-5.40); Red Cell Distribution Width 14 % (10.5-15); White Blood Count 11.1 10^3/ul (3.5-10.8)
[2018-12-18 06:40] LABS: BUN/Creatinine Ratio 12.9 (8-20); Calcium 8.9 mg/dL (8.6-10.3); EGFR African American 104.9 (>60); EGFR Non-African American 86.7 (>60); Potassium 3.8 mmol/L (3.5-5.0)
[2018-12-18] MEDS: Heparin VIAL(*) 5000 UNITS/ML VIAL (FIVE THOUSAND) SUBCUT SCH ×3 (08:02→21:46)
[2018-12-18] MEDS: Gabapentin CAP(*) 300 MG PO SCH ×3 (08:15→21:37)
[2018-12-18] MEDS: Finasteride TAB* 5 MG PO SCH (08:16)
[2018-12-18] MEDS: Pantoprazole TAB * 40 MG TAB PO SCH (08:16)
[2018-12-18] MEDS: Aspirin 81 mg CHEW TAB* 81 MG TAB.CHEW PO SCH (08:16)
[2018-12-18] MEDS: Timolol 0.25% OPHTH.SOLN* BTL RIGHT EYE SCH ×2 (08:16→21:46)
[2018-12-18] MEDS: Tamsulosin CAP* 0.4 MG PO SCH (08:16)
[2018-12-18] MEDS: Metoprolol Tartrate TAB* 25 MG PO SCH ×2 (08:16→21:48)
[2018-12-18] MEDS: NS 0.9% 1000 ML** 1,000 ML IV SCH (11:32)
--- NOTE | 2018-12-18 13:54 | PN ---
Subjective Date of Service: 12/18/18 Interval History: Mr. Jefferson feels better today. He reports that his abd pain has resolved. He did feel constipated and took some milk of mag. He felt like his abd pain improved after that, though he has not had a BM yet. He denies CP, SOB, N/V. Family History: Unchanged from Admission Social History: Unchanged from Admission Past Medical History: Unchanged from Admission Objective Active Medications: Acetaminophen (Tylenol Tab*) 650 mg PO Q4H PRN FEVER/PAIN Aspirin (Aspirin 81 Mg Chew Tab*) 81 mg PO DAILY [facility] Docusate Sodium (Colace Cap*) 100 mg PO BID PRN CONSTIPATION Finasteride (Proscar Tab*) 5 mg PO DAILY [facility] Gabapentin (Neurontin Cap(*)) 900 mg PO TID [facility] Heparin Sodium (Porcine) (Heparin Vial(*)) 5,000 units SUBCUT Q8HR [facility] Ceftriaxone Sodium 1 gm/ (Sodium Chloride) 50 mls @ 200 mls/hr IVPB Q24H [facility] Sodium Chloride (Ns 0.9% 1000 Ml) 1,000 mls @ 75 mls/hr IV PER RATE [facility] Latanoprost (Xalatan 0.005%*) 1 drop RIGHT EYE QPM [facility] Magnesium Hydroxide (Milk Of Magnesia Liq*) 30 ml PO Q6H PRN CONSTIPATION Metoprolol Tartrate (Lopressor Tab*) 12.5 mg PO Q12HR [facility] Morphine Sulfate (Morphine Vial*) 2 mg IV Q8H PRN abdominal pain Ondansetron HCl (Zofran Inj*) 4 mg IV Q6H PRN NAUSEA Pantoprazole Sodium (Protonix Tab*) 40 mg PO DAILY [facility] Simethicone (Mylicon Tab*) 80 mg PO Q6H PRN gas pain Tamsulosin HCl (Flomax Cap*) 0.4 mg PO DAILY [facility] Timolol Maleate (Timoptic Ophth.Soln 0.25%) 1 drop RIGHT EYE BID [facility] Vital Signs - 8 hr 12/18/18 12/18/18 12/18/18 06:00 08:04 08:15 Temperature 98.8 F 98.2 F Pulse Rate 93 Respiratory 22 20 Rate Blood Pressure 157/101 (mmHg) O2 Sat by Pulse 96 Oximetry 12/18/18 12/18/18 10:52 11:57 Temperature 98.3 F Pulse Rate 79 Respiratory 20 16 Rate Blood Pressure 131/81 (mmHg) O2 Sat by Pulse 98 Oximetry Oxygen Devices in Use Now: None Appearance: Elderly male sitting in chair in NAD Eyes: No Scleral Icterus Ears/Nose/Mouth/Throat: Mucous Membranes Moist Neck: NL Appearance and Movements; NL JVP, Trachea Midline Respiratory: Symmetrical Chest Expansion and Respiratory Effort, Clear to Auscultation Cardiovascular: NL Sounds; No Murmurs; No JVD, RRR Abdominal: NL Sounds; No Tenderness; No Distention Extremities: No Edema Skin: No Rash or Ulcers Neurological: - - Oriented to self and place, vaguely to time Lines/Tubes/Other Access: Clean, Dry and Intact Stone, Clean, Dry and Intact Peripheral IV Nutrition: Taking PO's Result Diagrams: 12/18/18 06:06 12/18/18 06:06 Assess/Plan/Problems-Billing Assessment: Mr. Jefferson is an 78 yo M with PMH of BPH with chronic Stone for retention, CAD with stents, and glaucoma; who presented with c/o abd pain and was found to have a UTI without other acute findings. - Patient Problems (1) UTI (urinary tract infection) Comment: - Catheter related, present on admission - Follows with Dr. Allen and catheter was last changed on 12/13 - Urine culture growing Enterobacter cloacae with >100k colonies - Continue ceftriaxone (2) Abdominal pain Code(s): R10.9 - UNSPECIFIED ABDOMINAL PAIN Comment: - Resolved; possibly secondary to constipation - CT unremarkable for any acute findings (3) BPH (benign prostatic hyperplasia) Code(s): N40.0 - BENIGN PROSTATIC HYPERPLASIA WITHOUT LOWER URINRY TRACT SYMP Comment: - Chronic Stone for retention - Continue tamsulosin, finasteride (4) CAD (coronary artery disease) Code(s): I25.10 - ATHSCL HEART DISEASE OF [place] CORONARY ARTERY W/O ANG PCTRS Comment: - With history of stents - Continue aspirin, metoprolol (5) GERD (gastroesophageal reflux disease) Code(s): K21.9 - GASTRO-ESOPHAGEAL REFLUX DISEASE WITHOUT ESOPHAGITIS Comment : - Continue pantoprazole (6) Glaucoma Code(s): H40.9 - UNSPECIFIED GLAUCOMA Comment: - Continue latanoprost, timolol (7) DVT prophylaxis Comment: - Heparin SQ (8) DNR (do not resuscitate) Comment: Status and Disposition: Inpatient for IV antibiotics. Anticipate d/c home when medically stable, likely Thursday. Attending: Ron Mitchell
[2018-12-18] MEDS: Latanoprost 0.005%* 2.5 ml BTL RIGHT EYE SCH (17:26)
[2018-12-18] MEDS: cefTRIAXone(*) 1 GM in NS 0.9% 50 ML* 50 ML IVPB SCH (21:35)
[2018-12-19] MEDS: Docusate CAP* 100 MG PO PRN ×2 (01:59→09:33)
[2018-12-19] MEDS: Magnesium Hydroxide LIQ* 30 ML UDC PO PRN ×2 (01:59→09:33)
[2018-12-19] MEDS: Heparin VIAL(*) 5000 UNITS/ML VIAL (FIVE THOUSAND) SUBCUT SCH ×3 (06:11→21:44)
[2018-12-19] MEDS: NS 0.9% 1000 ML** 1,000 ML IV SCH (07:36)
[2018-12-19] MEDS: Aspirin 81 mg CHEW TAB* 81 MG TAB.CHEW PO SCH (09:15)
[2018-12-19] MEDS: Gabapentin CAP(*) 300 MG PO SCH ×3 (09:15→21:45)
[2018-12-19] MEDS: Pantoprazole TAB * 40 MG TAB PO SCH (09:15)
[2018-12-19] MEDS: Finasteride TAB* 5 MG PO SCH (09:15)
[2018-12-19] MEDS: Timolol 0.25% OPHTH.SOLN* BTL RIGHT EYE SCH ×2 (09:15→21:52)
[2018-12-19] MEDS: Metoprolol Tartrate TAB* 25 MG PO SCH ×2 (09:15→21:48)
[2018-12-19] MEDS: Tamsulosin CAP* 0.4 MG PO SCH (09:15)
--- NOTE | 2018-12-19 13:28 | PN ---
Subjective Date of Service: 12/19/18 Interval History: Mr. Jefferson is feeling ok today. He is frustrated that he is not able to ambulate independently and feels as though he will become deconditioned while being here. He denies any further abd pain. Denies CP, SOB, N/V. Appetite good. Had a low-grade fever of 100.3 last night. Family History: Unchanged from Admission Social History: Unchanged from Admission Past Medical History: Unchanged from Admission Objective Active Medications: Acetaminophen (Tylenol Tab*) 650 mg PO Q4H PRN FEVER/PAIN Aspirin (Aspirin 81 Mg Chew Tab*) 81 mg PO DAILY [facility] Docusate Sodium (Colace Cap*) 100 mg PO BID PRN CONSTIPATION Finasteride (Proscar Tab*) 5 mg PO DAILY [facility] Gabapentin (Neurontin Cap(*)) 900 mg PO TID [facility] Heparin Sodium (Porcine) (Heparin Vial(*)) 5,000 units SUBCUT Q8HR [facility] Ceftriaxone Sodium 1 gm/ (Sodium Chloride) 50 mls @ 200 mls/hr IVPB Q24H [facility] Latanoprost (Xalatan 0.005%*) 1 drop RIGHT EYE QPM [facility] Magnesium Hydroxide (Milk Of MagnCozi Liq*) 30 ml PO Q6H PRN CONSTIPATION Metoprolol Tartrate (Lopressor Tab*) 12.5 mg PO Q12HR [facility] Morphine Sulfate (Morphine Vial*) 2 mg IV Q8H PRN abdominal pain Ondansetron HCl (Zofran Inj*) 4 mg IV Q6H PRN NAUSEA Pantoprazole Sodium (Protonix Tab*) 40 mg PO DAILY [facility] Simethicone (Mylicon Tab*) 80 mg PO Q6H PRN gas pain Tamsulosin HCl (Flomax Cap*) 0.4 mg PO DAILY [facility] Timolol Maleate (Timoptic Ophth.Soln 0.25%) 1 drop RIGHT EYE BID [facility] Vital Signs - 8 hr 12/19/18 12/19/18 12/19/18 07:37 08:00 09:15 Temperature 98.2 F Pulse Rate 82 Respiratory 16 20 16 Rate Blood Pressure 149/89 (mmHg) O2 Sat by Pulse 97 Oximetry 12/19/18 12/19/18 11:14 11:53 Temperature 98.6 F Pulse Rate 78 Respiratory 18 16 Rate Blood Pressure 141/84 (mmHg) O2 Sat by Pulse 96 Oximetry Oxygen Devices in Use Now: None Appearance: Elderly male sitting in chair in NAD Eyes: No Scleral Icterus Ears/Nose/Mouth/Throat: Mucous Membranes Moist Neck: NL Appearance and Movements; NL JVP, Trachea Midline Respiratory: Symmetrical Chest Expansion and Respiratory Effort, Clear to Auscultation Cardiovascular: NL Sounds; No Murmurs; No JVD, RRR Abdominal: NL Sounds; No Tenderness; No Distention Extremities: No Edema Skin: No Rash or Ulcers Neurological: Alert and Oriented x 3 Lines/Tubes/Other Access: Clean, Dry and Intact Stone, Clean, Dry and Intact Peripheral IV Nutrition: Taking PO's Result Diagrams: 12/18/18 06:06 12/18/18 06:06 Assess/Plan/Problems-Billing Assessment: Mr. Jefferson is an 78 yo M with PMH of BPH with chronic Stone for retention, CAD with stents, and glaucoma; who presented with c/o abd pain and was found to have a UTI without other acute findings. - Patient Problems (1) UTI (urinary tract infection) Comment: - Catheter related, present on admission - Follows with Dr. Allen and catheter was last changed on 12/13 - Low grade fever last night - Urine culture growing Enterobacter cloacae with >100k colonies - Continue ceftriaxone (day 02/16) (2) Abdominal pain Code(s): R10.9 - UNSPECIFIED ABDOMINAL PAIN Comment: - Resolved; possibly secondary to constipation - CT unremarkable for any acute findings (3) BPH (benign prostatic hyperplasia) Code(s): N40.0 - BENIGN PROSTATIC HYPERPLASIA WITHOUT LOWER URINRY TRACT SYMP Comment: - Chronic Stone for retention - Continue tamsulosin, finasteride (4) CAD (coronary artery disease) Code(s): I25.10 - ATHSCL HEART DISEASE OF [place] CORONARY ARTERY W/O ANG PCTRS Comment: - With history of stents - Continue aspirin, metoprolol (5) GERD (gastroesophageal reflux disease) Code(s): K21.9 - GASTRO-ESOPHAGEAL REFLUX DISEASE WITHOUT ESOPHAGITIS Comment : - Continue pantoprazole (6) Glaucoma Code(s): H40.9 - UNSPECIFIED GLAUCOMA Comment: - Continue latanoprost, timolol (7) DVT prophylaxis Comment: - Heparin SQ (8) DNR (do not resuscitate) Comment: Status and Disposition: Inpatient for IV antibiotics. Anticipate d/c home when medically stable, likely Thursday. Attending: Ron Mitchell
[2018-12-19] MEDS: Latanoprost 0.005%* 2.5 ml BTL RIGHT EYE SCH (16:16)
[2018-12-19] MEDS: cefTRIAXone(*) 1 GM in NS 0.9% 50 ML* 50 ML IVPB SCH (21:39)
[2018-12-19] MEDS: Acetaminophen TAB* 325 MG PO PRN (21:44)
[2018-12-19] MEDS ORDERED: Ibuprofen TAB* 400 MG PO ONE (23:45)
--- NOTE | 2018-12-19 23:47 | PN ---
Hospitalist Progress Note Date of Service: 12/19/18 Nurse reports fever, patient had received tylenol, but having fever again, will give ibuprofen. Get blood cultures, chest xray.
[2018-12-20] MEDS: Heparin VIAL(*) 5000 UNITS/ML VIAL (FIVE THOUSAND) SUBCUT SCH ×3 (05:57→21:04)
[2018-12-20] MEDS: Gabapentin CAP(*) 300 MG PO SCH (09:40)
[2018-12-20] MEDS: Pantoprazole TAB * 40 MG TAB PO SCH (09:41)
[2018-12-20] MEDS: Aspirin 81 mg CHEW TAB* 81 MG TAB.CHEW PO SCH (09:42)
[2018-12-20] MEDS: Tamsulosin CAP* 0.4 MG PO SCH (09:42)
[2018-12-20] MEDS: Finasteride TAB* 5 MG PO SCH (09:42)
[2018-12-20] MEDS: Metoprolol Tartrate TAB* 25 MG PO SCH (09:43)
[2018-12-20] MEDS: Timolol 0.25% OPHTH.SOLN* BTL RIGHT EYE SCH ×2 (09:44→22:21)
[2018-12-20] MEDS: Magnesium Hydroxide LIQ* 30 ML UDC PO PRN (09:49)
--- NOTE | 2018-12-20 11:27 | PN ---
Subjective Date of Service: 12/20/18 Interval History: Patient seen and examined this AM, states he wants to walk more. Feels like he wants to exercise. States he did not feel any changes when he had low grade fever overnight - no associate chills or rigors. Currently no fever, no chest pain, no SOB, no further complaints; however, approx 1/2 after seeing the patient, the primary RN called and stated the patient became hypotensive and unresponsive for 2-3 minutes, with SBP86 and was not responding to sternal rub. Upon re-evaluation, the patient is now awake, pale and diaphoretic. Does not endorse any further symptoms. There is some concern however, that two bottles of the patient's home meds were on the table, metoprolol and gabapentin. The patient does not recollect events clearly and nursing staff does not know where the two home meds came from. Family History: Unchanged from Admission Social History: Unchanged from Admission Past Medical History: Unchanged from Admission Objective Active Medications: Acetaminophen (Tylenol Tab*) 650 mg PO Q4H PRN PRN Reason: FEVER/PAIN Last Admin: 12/19/18 21:44 Dose: 650 mg Aspirin (Aspirin 81 Mg Chew Tab*) 81 mg PO DAILY [facility] Last Admin: 12/20/18 09:42 Dose: 81 mg Docusate Sodium (Colace Cap*) 100 mg PO BID PRN PRN Reason: CONSTIPATION Last Admin: 12/19/18 09:33 Dose: 100 mg Finasteride (Proscar Tab*) 5 mg PO DAILY [facility] Last Admin: 12/20/18 09:42 Dose: 5 mg Heparin Sodium (Porcine) (Heparin Vial(*)) 5,000 units SUBCUT Q8HR [facility] Last Admin: 12/20/18 05:57 Dose: 5,000 units Ceftriaxone Sodium 1 gm/ (Sodium Chloride) 50 mls @ 200 mls/hr IVPB Q24H [facility] Last Admin: 12/19/18 21:39 Dose: 200 mls/hr Latanoprost (Xalatan 0.005%*) 1 drop RIGHT EYE QPM [facility] Last Admin: 12/19/18 16:16 Dose: 1 drop Magnesium Hydroxide (Milk Of Magnesia Liq*) 30 ml PO Q6H PRN PRN Reason: CONSTIPATION Last Admin: 12/20/18 09:49 Dose: 30 ml Morphine Sulfate (Morphine Vial*) 2 mg IV Q8H PRN PRN Reason: abdominal pain Ondansetron HCl (Zofran Inj*) 4 mg IV Q6H PRN PRN Reason: NAUSEA Last Admin: 12/16/18 23:54 Dose: 4 mg Pantoprazole Sodium (Protonix Tab*) 40 mg PO DAILY [facility] Last Admin: 12/20/18 09:41 Dose: 40 mg Simethicone (Mylicon Tab*) 80 mg PO Q6H PRN PRN Reason: gas pain Tamsulosin HCl (Flomax Cap*) 0.4 mg PO DAILY [facility] Last Admin: 12/20/18 09:42 Dose: 0.4 mg Timolol Maleate (Timoptic Ophth.Soln 0.25%) 1 drop RIGHT EYE BID [facility] Last Admin: 12/20/18 09:44 Dose: 1 drop Vital Signs - 8 hr 12/20/18 12/20/18 12/20/18 07:48 09:40 10:38 Temperature 98.5 F Pulse Rate 78 Respiratory 18 16 16 Rate Blood Pressure 147/75 (mmHg) O2 Sat by Pulse 96 Oximetry Oxygen Devices in Use Now: None Appearance: alert, pale Eyes: PERRLA Ears/Nose/Mouth/Throat: Mucous Membranes Moist Neck: NL Appearance and Movements; NL JVP Respiratory: Symmetrical Chest Expansion and Respiratory Effort, Clear to Auscultation Cardiovascular: NL Sounds; No Murmurs; No JVD, RRR, No Edema Abdominal: NL Sounds; No Tenderness; No Distention Skin: No Rash or Ulcers, - - diaphoretic Neurological: - - A&Ox2 Nutrition: Taking PO's Result Diagrams: 12/18/18 06:06 12/18/18 06:06 Microbiology and Other Data: Microbiology 12/16/18 19:44 Urine Culture - Final Urine Enterobacter Cloacae Normal [facility]: Patient Name: EVA JEFFERSON Medical Record#: [id number] Ordering Physician: Vilma Blackwell MD Acct.#: [id number] : 1940 Age: 78 Sex: M Location: [address] [place] [address] - MEDICAL Exam Date: 12/19/182345 ADM Status: ADM IN Order Information: CHEST AP OR PORT Accession Number: [id number] CPT: 33124 HISTORY: fever COMPARISONS: August 09, 2018 VIEWS: 1: frontal AP view of the chest at 12:00 AM FINDINGS: LINES AND TUBES: None. CARDIOMEDIASTINAL SILHOUETTE: The cardiomediastinal silhouette is normal for portable technique. PLEURA: The costophrenic angles are sharp. No pleural abnormalities are noted. LUNG PARENCHYMA: The lungs are clear. ABDOMEN: The upper abdomen is clear. There is no subphrenic gas. BONES AND SOFT TISSUES: There is patchy alveolar opacification of the left lower lung. IMPRESSION: PATCHY ATELECTASIS VERSUS CONSOLIDATION OF THE LEFT LUNG BASE. R1F Preliminary Imaging Read R1F <Electronically signed by Arnulfo Canseco MD in [place]> 12/20/18746 Dictated By: Arnulfo Canseco MD Dictated Date/Time: 12/20/18746 Transcribed Date/Time: 12/20/18745 Assess/Plan/Problems-Billing Assessment: Mr. Jefferson is an 78 yo M with PMH of BPH with chronic Stone for retention, CAD with stents, and glaucoma; who presented with c/o abd pain and was found to have a UTI, also had fever overnight. - Patient Problems (1) Syncope Code(s): R55 - SYNCOPE AND COLLAPSE SNOMED Code(s): 888373015 Comment: - With associated hypotension, may be medication related - Check EKG, trop, CT head, place on tele, hold BB and gabapentin - Follow blood cultures (2) Fever Code(s): R50.9 - FEVER, UNSPECIFIED SNOMED Code(s): 320879928 Comment: - May be related to UTI vs atelectasis/consolidation per CXR above, but patient has no cough or respiratory symptoms - Continue ceftriaxone and monitor temps - Follow blood cultures drawn last night (3) UTI (urinary tract infection) Comment: - Catheter related, present on admission but with new fever last night - Follows with Dr. Allen and catheter was last changed on 12/13 - Urine culture growing Enterobacter cloacae with >100k colonies - Continue ceftriaxone (day 03/18) (4) BPH (benign prostatic hyperplasia) Code(s): N40.0 - BENIGN PROSTATIC HYPERPLASIA WITHOUT LOWER URINRY TRACT SYMP SNOMED Code(s): 663972860 Comment: - Chronic Stone for retention - Continue tamsulosin, finasteride (5) GERD (gastroesophageal reflux disease) Code(s): K21.9 - GASTRO-ESOPHAGEAL REFLUX DISEASE WITHOUT ESOPHAGITIS SNOMED Code(s): 604899691 Comment: - Continue pantoprazole (6) Glaucoma Code(s): H40.9 - UNSPECIFIED GLAUCOMA SNOMED Code(s): 83868670 Comment: - Continue latanoprost, timolol (7) CAD (coronary artery disease) Code(s): I25.10 - ATHSCL HEART DISEASE OF [place] CORONARY ARTERY W/O ANG PCTRS SNOMED Code(s): 29888180 Comment: - With history of stents - Continue aspirin, hold metoprolol in light of hypotention and possibility that patient took his own medications today unsupervised (8) HTN (hypertension) Code(s): I10 - ESSENTIAL (PRIMARY) HYPERTENSION SNOMED Code(s): 72897734 Comment: - Hold metoprolol today (9) Hypotension Current Visit: Yes Status: Acute (10) Vitamin B 12 deficiency Code(s): E53.8 - DEFICIENCY OF OTHER SPECIFIED B GROUP VITAMINS SNOMED Code(s) : 526654801 Comment: - Concern with advancing difficulty with ambulation that level may be low again , will check B12 (11) DNR (do not resuscitate) Comment: Status and Disposition: Inpatient for IV antibiotics. Anticipate d/c home vs [facility] when medically stable.
[2018-12-20] MEDS ORDERED: Cyanocobalamin INJ * 1,000 MCG/ML VIAL 1 ML VIAL IM ONE (13:26)
[2018-12-20] MEDS: Latanoprost 0.005%* 2.5 ml BTL RIGHT EYE SCH (17:18)
[2018-12-20] MEDS: Docusate CAP* 100 MG PO SCH (21:04)
[2018-12-20] MEDS: cefTRIAXone(*) 1 GM in NS 0.9% 50 ML* 50 ML IVPB SCH (21:04)
[2018-12-21] MEDS: Heparin VIAL(*) 5000 UNITS/ML VIAL (FIVE THOUSAND) SUBCUT SCH ×3 (05:51→21:17)
[2018-12-21] MEDS: Aspirin 81 mg CHEW TAB* 81 MG TAB.CHEW PO SCH (09:17)
[2018-12-21] MEDS: Docusate CAP* 100 MG PO SCH ×2 (09:17→21:17)
[2018-12-21] MEDS: Pantoprazole TAB * 40 MG TAB PO SCH (09:17)
[2018-12-21] MEDS: Cyanocobalamin TAB* 500 MCG PO SCH (09:17)
[2018-12-21] MEDS: Finasteride TAB* 5 MG PO SCH (09:17)
[2018-12-21] MEDS: Timolol 0.25% OPHTH.SOLN* BTL RIGHT EYE SCH ×2 (09:17→21:17)
[2018-12-21] MEDS: Tamsulosin CAP* 0.4 MG PO SCH (09:17)
--- NOTE | 2018-12-21 17:05 | PN ---
Subjective Date of Service: 12/21/18 Interval History: Patient seen and examined.No acute overnight events. No BP issues, patient denies SOB, no chest pain, no dizziness. Still feeling weak. Discussed B12 deficiency at length, patient states he stopped taking B12 supplements, but doesn't remember when. Family History: Unchanged from Admission Social History: Unchanged from Admission Past Medical History: Unchanged from Admission Objective Active Medications: Acetaminophen (Tylenol Tab*) 650 mg PO Q4H PRN PRN Reason: FEVER/PAIN Last Admin: 12/19/18 21:44 Dose: 650 mg Aspirin (Aspirin 81 Mg Chew Tab*) 81 mg PO DAILY [facility] Last Admin: 12/21/18 09:17 Dose: 81 mg Cyanocobalamin (Vitamin B12 Tab*) 500 mcg PO DAILY [facility] Last Admin: 12/21/18 09:17 Dose: 500 mcg Docusate Sodium (Colace Cap*) 100 mg PO BID [facility] Last Admin: 12/21/18 09:17 Dose: 100 mg Finasteride (Proscar Tab*) 5 mg PO DAILY [facility] Last Admin: 12/21/18 09:17 Dose: 5 mg Heparin Sodium (Porcine) (Heparin Vial(*)) 5,000 units SUBCUT Q8HR [facility] Last Admin: 12/21/18 14:44 Dose: 5,000 units Ceftriaxone Sodium 1 gm/ (Sodium Chloride) 50 mls @ 200 mls/hr IVPB Q24H [facility] Last Admin: 12/20/18 21:04 Dose: 200 mls/hr Latanoprost (Xalatan 0.005%*) 1 drop RIGHT EYE QPM [facility] Last Admin: 12/20/18 17:18 Dose: 1 drop Magnesium Hydroxide (Milk Of Magnesia Liq*) 30 ml PO Q6H PRN PRN Reason: CONSTIPATION Last Admin: 12/20/18 09:49 Dose: 30 ml Morphine Sulfate (Morphine Vial*) 2 mg IV Q8H PRN PRN Reason: abdominal pain Ondansetron HCl (Zofran Inj*) 4 mg IV Q6H PRN PRN Reason: NAUSEA Last Admin: 12/16/18 23:54 Dose: 4 mg Pantoprazole Sodium (Protonix Tab*) 40 mg PO DAILY [facility] Last Admin: 12/21/18 09:17 Dose: 40 mg Simethicone (Mylicon Tab*) 80 mg PO Q6H PRN PRN Reason: gas pain Tamsulosin HCl (Flomax Cap*) 0.4 mg PO DAILY [facility] Last Admin: 12/21/18 09:17 Dose: 0.4 mg Timolol Maleate (Timoptic Ophth.Soln 0.25%) 1 drop RIGHT EYE BID [facility] Last Admin: 12/21/18 09:17 Dose: 1 drop Vital Signs - 8 hr 12/21/18 12/21/18 11:18 11:30 Temperature 99.3 F Pulse Rate 80 Respiratory 16 20 Rate Blood Pressure 148/95 (mmHg) O2 Sat by Pulse 98 Oximetry Oxygen Devices in Use Now: None Appearance: alert, NAD Eyes: No Scleral Icterus, PERRLA, - Ears/Nose/Mouth/Throat: NL Teeth, Lips, Gums, Mucous Membranes Moist Neck: NL Appearance and Movements; NL JVP, Trachea Midline Respiratory: Symmetrical Chest Expansion and Respiratory Effort, Clear to Auscultation Cardiovascular: NL Sounds; No Murmurs; No JVD, RRR Abdominal: NL Sounds; No Tenderness; No Distention Extremities: No Edema, No Clubbing, Cyanosis Skin: No Rash or Ulcers Neurological: Alert and Oriented x 3, - - general weakness Nutrition: Taking PO's Result Diagrams: 12/18/18 06:06 12/18/18 06:06 Microbiology and Other Data: Microbiology 12/16/18 19:44 Urine Culture - Final Urine Enterobacter Cloacae Normal [facility]: Patient Name: EVA JEFFERSON Medical Record#: [id number] Ordering Physician: Vilma Blackwell MD Acct.#: [id number] : 1940 Age: 78 Sex: M Location: [address] [place] [address] - MEDICAL Exam Date: 12/19/182345 ADM Status: ADM IN Order Information: CHEST AP OR PORT Accession Number: [id number] CPT: 98198 HISTORY: fever COMPARISONS: August 09, 2018 VIEWS: 1: frontal AP view of the chest at 12:00 AM FINDINGS: LINES AND TUBES: None. CARDIOMEDIASTINAL SILHOUETTE: The cardiomediastinal silhouette is normal for portable technique. PLEURA: The costophrenic angles are sharp. No pleural abnormalities are noted. LUNG PARENCHYMA: The lungs are clear. ABDOMEN: The upper abdomen is clear. There is no subphrenic gas. BONES AND SOFT TISSUES: There is patchy alveolar opacification of the left lower lung. IMPRESSION: PATCHY ATELECTASIS VERSUS CONSOLIDATION OF THE LEFT LUNG BASE. R1F Preliminary Imaging Read R1F <Electronically signed by Arnulfo Canseco MD in [facility]> 12/20/18746 Dictated By: Arnulfo Canseco MD Dictated Date/Time: 12/20/18746 Transcribed Date/Time: 12/20/18745 Assess/Plan/Problems-Billing Assessment: Mr. Jefferson is an 78 yo M with PMH of BPH with chronic Stone for retention, CAD with stents, and glaucoma; who presented with c/o abd pain and was found to have a UTI, also had fever overnight. - Patient Problems (1) Syncope Code(s): R55 - SYNCOPE AND COLLAPSE SNOMED Code(s): 598102545 Comment: - Symptoms resolved, suspect patient inadvertantly took his metoprolol and gabapentin from home meds - CT head, EKG negative, Blood cx NTD (2) Fever Code(s): R50.9 - FEVER, UNSPECIFIED SNOMED Code(s): 775949819 Comment: - Likely 2/2 entereobacter in urine vs atelectasis/consolidation per CXR above (but patient has no cough or respiratory symptoms) - Continue ceftriaxone per sensitivities, afebrile last 24 hours (3) UTI (urinary tract infection) Comment: - Catheter related, present on admission - Follows with Dr. Allen and catheter was last changed on 12/13 - Urine culture growing Enterobacter cloacae with >100k colonies - Continue ceftriaxone (day 04/18) (4) BPH (benign prostatic hyperplasia) Code(s): N40.0 - BENIGN PROSTATIC HYPERPLASIA WITHOUT LOWER URINRY TRACT SYMP SNOMED Code(s): 967297135 Comment: - Chronic Stone for retention - Continue tamsulosin, finasteride (5) GERD (gastroesophageal reflux disease) Code(s): K21.9 - GASTRO-ESOPHAGEAL REFLUX DISEASE WITHOUT ESOPHAGITIS SNOMED Code(s): 509271015 Comment: - Continue pantoprazole (6) Glaucoma Code(s): H40.9 - UNSPECIFIED GLAUCOMA SNOMED Code(s): 06015394 Comment: - Continue latanoprost, timolol (7) CAD (coronary artery disease) Code(s): I25.10 - ATHSCL HEART DISEASE OF [place] CORONARY ARTERY W/O ANG PCTRS SNOMED Code(s): 72312828 Comment: - With history of stents - Continue aspirin - Restart metoprolol (8) HTN (hypertension) Code(s): I10 - ESSENTIAL (PRIMARY) HYPERTENSION SNOMED Code(s): 08707855 Comment: - Hold metoprolol today (9) Hypotension Comment: - Resolved (10) Vitamin B 12 deficiency Code(s): E53.8 - DEFICIENCY OF OTHER SPECIFIED B GROUP VITAMINS SNOMED Code(s) : 396623294 Comment: - 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
[2018-12-21] MEDS: Latanoprost 0.005%* 2.5 ml BTL RIGHT EYE SCH (17:50)
[2018-12-21] MEDS: cefTRIAXone(*) 1 GM in NS 0.9% 50 ML* 50 ML IVPB SCH (21:17)
[2018-12-21] MEDS: Acetaminophen TAB* 325 MG PO PRN (21:20)
[2018-12-21] MEDS: Metoprolol Tartrate TAB* 25 MG PO SCH (21:21)
[2018-12-22] MEDS ORDERED: hydrALAZINE IV* 20 MG/ML VIAL IV SLOW PU ONE (04:06)
[2018-12-22] MEDS: Heparin VIAL(*) 5000 UNITS/ML VIAL (FIVE THOUSAND) SUBCUT SCH ×2 (05:44→15:50)
[2018-12-22] MEDS: Docusate CAP* 100 MG PO SCH (10:48)
[2018-12-22] MEDS: Metoprolol Tartrate TAB* 25 MG PO SCH (10:48)
[2018-12-22] MEDS: Aspirin 81 mg CHEW TAB* 81 MG TAB.CHEW PO SCH (10:48)
[2018-12-22] MEDS: Finasteride TAB* 5 MG PO SCH (10:48)
[2018-12-22] MEDS: Cyanocobalamin TAB* 500 MCG PO SCH (10:49)
[2018-12-22] MEDS: Tamsulosin CAP* 0.4 MG PO SCH (10:49)
[2018-12-22] MEDS: Timolol 0.25% OPHTH.SOLN* BTL RIGHT EYE SCH (10:49)
[2018-12-22] MEDS: Pantoprazole TAB * 40 MG TAB PO SCH (10:49)
--- NOTE | 2018-12-22 12:56 | DS ---
CC: Dr. Freeman; Dr. Allen * DATE OF ADMISSION: 12/16/2018. DATE OF DISCHARGE: 12/22/2018. PRIMARY CARE PHYSICIAN: Dr. Mariusz Freeman. MY ATTENDING PHYSICIAN FOR TODAY: Dr. Cullen Johnson * (dictated by Reji Turner NP). HOSPITAL COURSE: Please refer to admission history and physical. In short, this is a patient who presented with emergency medical services from home with a complaint of abdominal pain. The patient stated the pain at the time was 10/ 10. He does have a history of urinary retention with a chronic Stone. He also has had some abdominal surgeries in the past resulting in adhesions; however, the patient states that he was not vomiting and he was having normal bowel movements. He did have a CAT scan of the abdomen which showed no obstruction. The patient was noted to have a urinary tract infection that was present at admission, likely secondary to his Stone. The patient also had some persistent weakness and was dehydrated. He was admitted for IV antibiotics and IV hydration. His past medical history is otherwise minimal. He has coronary artery disease with stenting, glaucoma, and BPH with urinary retention. The patient did respond well to antibiotics and IV fluids. His urine culture did reveal Enterobacter cloacae which was sensitive to Ceftriaxone which is what he was continued on. The patient did come in on Doxycycline, treatment dose at two times a day, likely from Dr. Allen who is his urologist. However, given microbiology specimen, the patient will be discharged on Cefuroxime and will need continued follow-up. Of significant note, the patient is for the most part alert and oriented. I think he is forgetful at time. We did have an incident where the nurse called me to the bedside because the patient was becoming unresponsive and hypotensive. We did find a bottle of his Metoprolol from home in his room that was set up on his table. The patient did not remember taking extra medications ; however, with just holding his Metoprolol for 24 hours, his hypotension resolved, he rebounded, and the patient was perfectly fine after that. The patient has been hemodynamically stable since; however, he is generally very weak. He does have a history of B12 deficiency in the past with some neurologic complications. His B12 level remains low at 70. He is getting outpatient B12 injections which should be continued. However, he did received one supplemental injection of 1,000 mcg of B12 while an inpatient and then he was also started on oral supplementation. This is something that should be followed closely as an outpatient to ensure most optimal treatment for this B12 deficiency. Physical therapy evaluated the patient and determined he would benefit from short- term rehab. He has been accepted at [facility]. He will be transferred later on this afternoon. DISCHARGE DIAGNOSES: 1. Abdominal pain secondary to urinary tract infection and chronic urinary retention. 2. History of coronary artery disease, stable. 3. History of glaucoma, currently stable. 4. History of GERD, currently stable. 5. History of neuropathy, on Gabapentin. 6. B12 deficiency, on supplementation. 7. Hypotension, now resolved. 8. History of BPH with chronic Stone. 9. Fever secondary to urinary tract infection, now resolved. 10. History of hypertension, currently normotensive. DISCHARGE MEDICATIONS: 1. Travatan eye drops right eye in the evening. 2. Timolol eye drops for the right eye 2 times a day. 3. Flomax 0.4 mg p.o. daily. 4. Pilocarpine 1% ophthalmic solution to the left eye daily. 5. Omeprazole 20 mg daily. 6. Nystatin powder as needed. 7. Metoprolol Tartrate 12.5 mg p.o. q.12 hours. 8. Milk of Magnesia 30 ml q.6 hours as needed. 9. Gabapentin 900 mg p.o. t.i.d. 10. Finasteride 5 mg p.o. daily. 11. Vitamin B12 injection 1,000 mcg monthly and 500 mg daily. 12. Benzonatate 100 mg p.o. t.i.d. as needed. 13. Aspirin 81 mg daily. 14. Tylenol 650 mg q.6 hours as needed. 15. Cefuroxime 500 mg p.o. b.i.d. times 5 more days. 16. Simethicone 80 mg p.o. q.6 hours as needed. 17. Docusate 100 mg p.o. b.i.d. 18. Tylenol 650 q.4 hours as needed. REVIEW OF SYSTEMS THE DAY OF DISCHARGE: The patient denies any fever, fatigue, or chills. He does complain of some fatigue and some general weakness. Otherwise, he denies chest pain, no abdominal pain, no nausea, no vomiting, no shortness of breath, and no further constitutional complaints. PHYSICAL EXAMINATION: Denny ridereral: Well-appearing gentleman in no acute distress. Vital Signs: Blood pressure is 154/95, heart rate 72, respiratory rate 17, O2 saturation 97 percent on room air, temperature 98.4. HEENT: Patient is atraumatic, normocephalic. He has PERRLA with nonicteric sclerae. His right eye does have some drooping at baseline and also discoloration of the iris secondary to his glaucoma, again at his baseline. Oral mucosa is moist. Tongue is midline. Neck: Supple, nontender. No JVD noted, no carotid bruit is auscultated. Cardiovascular: S1, S2 present. No murmurs, gallops or rubs noted. Lungs: Clear bilaterally to auscultation with no wheezing, rhonchi, or rales. Abdomen: Soft, nontender, nondistended. Positive bowel sounds all four quadrants. : He has a Stone catheter draining clear yellow urine. Musculoskeletal: There is no clubbing, no cyanosis, and no edema. He has gross motor and sensation intact. He does have some general weakness, ambulates with a walker. Neurologic: He is alert and oriented times three, although he can be sometimes forgetful. He is otherwise grossly intact. Psychiatric: He is cooperative and appropriate. LABORATORY DATA: WBC 11.1, RBC 4.45, hemoglobin 14.6, hematocrit 42, platelets 218; sodium 136, potassium 3.8, chloride 105, CO2 23, BUN 11, creatinine 0.85, GFR 86.7, glucose 141, lactic acid 1.8 down from 3.2, calcium 8.9, troponin is negative at 0.00, and B12 70. IMAGING STUDIES: 1. 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 2. Chest x-ray dated 12/19/2018 shows patchy atelectasis versus consolidation of the left lung base. DISPOSITION: The patient has been accepted to [facility] for short-term rehab. He will be discharged at 5:00 p.m. today. DIET: Heart-healthy as tolerated. ACTIVITY: Progress as tolerated. FOLLOW-UP: The patient was instructed to follow-up with Dr. Mariusz Freeman, his primary care provider on an as needed basis after discharge from short-term rehab. He was also instructed to follow-up with Dr. Allen for catheter management and changes. The patient was discharged in stable condition. All questions were answered. The patient stated understanding of his discharge instructions and follow-ups. TIME SPENT: Thirty-five minutes interfacing with the patient, case management, and other providers involved in this patient's care. REJI TURNER NP [id number]/[facility] #: [id number] MADINA
[2018-12-22 16:00] VITALS: BP 151/78
[2018-12-22] MEDS: Latanoprost 0.005%* 2.5 ml BTL RIGHT EYE SCH (18:19)
== END 2018-12-22 18:00 | DRG 699 ==
LOC: ED 17:54 → MED 21:46 → OBSVTOIN 12-17 16:00
PROVIDERS: ADMIT Internal Medicine; ATTEND Internal Medicine
DX: T83.518A Infection and inflammatory reaction due to other urinary catheter, initial encounter (principal); N39.0 Urinary tract infection, site not specified; I25.10 Atherosclerotic heart disease of native coronary artery without angina pectoris; H40.9 Unspecified glaucoma; N40.1 Benign prostatic hyperplasia with lower urinary tract symptoms; Z66 Do not resuscitate; R33.8 Other retention of urine; B96.89 Other specified bacterial agents as the cause of diseases classified elsewhere; E53.8 Deficiency of other specified B group vitamins; G62.9 Polyneuropathy, unspecified; I10 Essential (primary) hypertension; E86.0 Dehydration; H54.61 Unqualified visual loss, right eye, normal vision left eye; K43.9 Ventral hernia without obstruction or gangrene; Y84.6 Urinary catheterization as the cause of abnormal reaction of the patient, or of later complication, without mention of misadventure at the time of the procedure; I25.2 Old myocardial infarction; R55 Syncope and collapse; I95.9 Hypotension, unspecified; Z82.49 Family history of ischemic heart disease and other diseases of the circulatory system; Z87.891 Personal history of nicotine dependence; Z79.82 Long term (current) use of aspirin; Z95.5 Presence of coronary angioplasty implant and graft; N28.1 Cyst of kidney, acquired; Z90.89 Acquired absence of other organs
CPT/HCPCS: 36415; 70450; 71045; 74177; 80048; 80053; 81003; 81015; 82150; 82607; 83605; 83690; 83880; 84484; 85025; 85610; 86140; 87040; 87077; 87086; 87186; 93005; 99284; A9270-GY; G8978-GP-CJ; G8979-GP-CH; J0360; J0696; J1644; J2270; J2405; J3420; Q9967

== ENCOUNTER 2019-06-15 00:42 | Emergency (ER) | payer MEDICARE ==
--- NOTE | 2019-06-15 01:08 | ED ---
GI/ HPI - HPI Summary HPI Summary: An 78 y/o male brought in by [facility] presents to [facility] with a chief complaint of a blockage in his wilkins catheter causing some pain at 22:30 today. At triage he rated his pain as a 4/10 in severity. He denies any fevers. - History of Current Complaint Chief Complaint: EDUrogenitalProblems Time Seen by Provider: 06/15/19 00:54 Stated Complaint: CATHER ISSUE PER EMS Hx Obtained From: Patient, EMS Onset/Duration: Started Hours Ago, Still Present Timing: Constant, Lasting Hours Severity: Moderate Current Severity: Moderate Pain Intensity: 4 - out of 10 Location of Pain: Diffuse Pain Characteristics: Unable to describe Associated Signs and Symptoms: Negative: Fever - Additional Pertinent History Primary Care Physician: ДМИТРИЙ - Allergy/Home Medications Allergies/Adverse Reactions: Allergies Allergy/AdvReac Type Severity Reaction Status Date / Time atorvastatin Allergy Flushing Verified 01/21/19 08:25 PMH/Surg Hx/FS Hx/Imm Hx Endocrine/Hematology History: Denies: Hx Anticoagulant Therapy, Hx Diabetes Cardiovascular History: Reports: Hx Coronary Artery Disease, Hx Hypercholesterolemia, Hx Myocardial Infarction Denies: Hx Hypertension, Hx Pacemaker/ICD Comment Only: Other Cardiovascular Problems/Disorders - MT Respiratory History: Denies: Hx Asthma, Hx Chronic Obstructive Pulmonary Disease (COPD), Hx Lung Cancer, Hx Pulmonary Embolism GI History: Reports: Other GI Disorders - peptic ulcer disease Denies: Hx Gastroesophageal Reflux Disease History: Reports: Hx Benign Prostatic Hyperplasia Denies: Hx Renal Disease Comment Only: Other Problems/Disorders - urine retention Musculoskeletal History: Reports: Hx Back Problems Sensory History: Reports: Hx Contacts or Glasses, Hx Legally Blind - Rt eye, Hx Hearing Problem Denies: Hx Cataracts, Hx Eye Injury, Hx Eye Prosthesis, Hx Glaucoma, Hx Macular Degeneration, Hx Deafness, Hx Hearing Aid Opthamlomology History: Reports: Hx Contacts or Glasses, Hx Legally Blind - Rt eye Denies: Hx Cataracts, Hx Eye Injury, Hx Eye Prosthesis, Hx Glaucoma, Hx Macular Degeneration Neurological History: Reports: Hx Headaches Psychiatric History: Denies: Hx Panic Disorder - Surgical History Surgery Procedure, Year, and Place: [place] WITH STENT. MULTIPLE HERNIA REPAIRS, l side rib repair, r femur rodding Infectious Disease History: No Infectious Disease History: Denies: Hx Clostridium Difficile, Hx Hepatitis, Hx of Known/Suspected MRSA, Hx Shingles, Hx Tuberculosis, Hx Known/Suspected VRE, Traveled Outside the [place] in Last 30 Days - Family History Known Family History: Positive: Cardiac Disease, Hypertension - Social History Alcohol Use: None Substance Use Type: Reports: None Smoking Status (MU): Never Smoked Tobacco Review of Systems Negative: Fever Positive: other - positive: blockage in wilkins catheter All Other Systems Reviewed And Are Negative: Yes Physical Exam - Summary Physical Exam Summary: Constitutional: Well-developed, Well-nourished, Alert. (-) Distressed Skin: Warm, Dry HENT: Normocephalic; Atraumatic Eyes: Conjunctiva normal Neck: Musculoskeletal ROM normal neck. (-) JVD, (-) Stridor, (-) Tracheal deviation Cardio: Rhythm regular, rate normal, Heart sounds normal; Intact distal pulses; The pedal pulses are 2+ and symmetric. Radial pulses are 2+ and symmetric. (-) Murmur Pulmonary/Chest wall: Effort normal. (-) Respiratory distress, (-) Wheezes, (-) Rales Abd: Soft, (-) tenderness, (-) Distension, (-) Guarding, (-) Rebound Musculoskeletal: (-) Edema Lymph: (-) Cervical adenopathy Neuro: Alert, Oriented x3 Psych: Mood and affect Normal Gu: Wilkins Catheter in place Triage Information Reviewed: Yes Vital Signs On Initial Exam: Initial Vitals Temp Pulse Resp BP Pulse Ox 98.0 F 84 18 206/156 98 06/15/19 00:45 06/15/19 00:45 06/15/19 00:45 06/15/19 00:45 06/15/19 00:45 Vital Signs Reviewed: Yes Diagnostics - Vital Signs Vital Signs Temp Pulse Resp BP Pulse Ox 06/15/19 00:45 98.0 F 84 18 206/156 98 - Laboratory Lab Statement: Any lab studies that have been ordered have been reviewed, and results considered in the medical decision making process. GIGU Course/Dx - Course Course Of Treatment: An 78 y/o male presents to [facility] with a chief complaint of a blockage in his wilkins catheter causing some pain at 22:30 today. The wilkins catheter was replaced by the nurse. The physical exam revealed a wilkins catheter in place. The patient will be discharged home and follow up with his PCP. The patient is agreeable with this plan. - Diagnoses Provider Diagnoses: Obstructed Wilkins catheter Discharge - Sign-Out/Discharge Documenting (check all that apply): Patient Departure Patient Received Moderate/Deep Sedation with Procedure: No - Discharge Plan Condition: Stable Disposition: HOME Patient Education Materials: Wilkins Catheter Placement and Care (ED) Print Language: HEBREW Referrals: Mariusz Freeman MD [Primary Care Provider] - - Billing Disposition and Condition Condition: STABLE Disposition: Home - Attestation Statements Document Initiated by Scribe: Yes Documenting Scribe: Garth Bautista Provider For Whom Niels is Documenting (Include Credential): Bonita Gonzalez MD Scribe Attestation: I, Garth Bautista, scribed for Bonita Vasques MD on 06/15/19 at 0431. Scribe Documentation Reviewed: Yes Provider Attestation: The documentation as recorded by the Garth bird accurately reflects the service I personally performed and the decisions made by me, Bonita Vasques MD Status of Scribe Document: Viewed
[2019-06-15 02:16] VITALS: BP 165/100
== END 2019-06-15 02:14 | disposition home or self-care (01) ==
LOC: ED 00:42
DX: T83.091A Other mechanical complication of indwelling urethral catheter, initial encounter (principal); Z88.8 Allergy status to other drugs, medicaments and biological substances; I25.10 Atherosclerotic heart disease of native coronary artery without angina pectoris; E78.00 Pure hypercholesterolemia, unspecified; I25.2 Old myocardial infarction
CPT/HCPCS: 99283

== ENCOUNTER 2019-08-07 17:35 | Emergency (ER) | payer MEDICARE ==
[2019-08-07 19:03] LABS: Urine Appearance Cloudy; Urine Bacteria 1+ (Absent); Urine Bilirubin Negative (Negative); Urine Blood 2+ (Negative); Urine Color Yellow; Urine Glucose Negative (Negative); Urine Ketones Negative (Negative); Urine Nitrite Positive (Negative); Urine Protein 2+(100 mg/dL) (Negative); Urine Red Blood Cell 3+(>10/hpf) (Absent); Urine Specific Gravity 1.013 (1.010-1.030); Urine Urobilinogen Negative (Negative); Urine White Blood Cell 3+(>20/hpf) (Absent)
[2019-08-07] MEDS ORDERED: Amoxicillin/Clavulanate TAB* 500 MG PO ONE (19:05)
--- NOTE | 2019-08-07 19:08 | ED ---
GI/ HPI - HPI Summary HPI Summary: 79 year male presents with a catheter pain today. He states he has had a urinary catheter for the past year. He states now once a month for the past 3 month he seen to need it changed. He states that it hasn't walked for 3 hours. He states a lot of bladder pressure. He states has not been draining. No fevers. No chills. No nausea vomiting. Denies any chest pain or shortness of breath. Has no other symptoms. See Dr. Allen for urology. - History of Current Complaint Chief Complaint: EDUrogenitalProblems Time Seen by Provider: 08/07/19 18:42 Stated Complaint: BLOCKED CATH PER PT Pain Intensity: 3 - Additional Pertinent History Primary Care Physician: [id number] - Allergy/Home Medications Allergies/Adverse Reactions: Allergies Allergy/AdvReac Type Severity Reaction Status Date / Time No Known Allergies Allergy Verified 08/07/19 17:40 PMH/Surg Hx/FS Hx/Imm Hx Endocrine/Hematology History: Denies: Hx Anticoagulant Therapy, Hx Diabetes Cardiovascular History: Reports: Hx Coronary Artery Disease, Hx Hypercholesterolemia, Hx Myocardial Infarction Denies: Hx Hypertension, Hx Pacemaker/ICD Comment Only: Other Cardiovascular Problems/Disorders - [place] Respiratory History: Denies: Hx Asthma, Hx Chronic Obstructive Pulmonary Disease (COPD), Hx Lung Cancer, Hx Pulmonary Embolism GI History: Reports: Other GI Disorders - peptic ulcer disease Denies: Hx Gastroesophageal Reflux Disease History: Reports: Hx Benign Prostatic Hyperplasia Denies: Hx Renal Disease Comment Only: Other Problems/Disorders - urine retention Musculoskeletal History: Reports: Hx Back Problems Sensory History: Reports: Hx Contacts or Glasses, Hx Legally Blind - Rt eye, Hx Hearing Problem Denies: Hx Cataracts, Hx Eye Injury, Hx Eye Prosthesis, Hx Glaucoma, Hx Macular Degeneration, Hx Deafness, Hx Hearing Aid Opthamlomology History: Reports: Hx Contacts or Glasses, Hx Legally Blind - Rt eye Denies: Hx Cataracts, Hx Eye Injury, Hx Eye Prosthesis, Hx Glaucoma, Hx Macular Degeneration Neurological History: Reports: Hx Headaches Psychiatric History: Denies: Hx Panic Disorder - Surgical History Surgery Procedure, Year, and Place: [place] WITH STENT. MULTIPLE HERNIA REPAIRS, l side rib repair, r femur rodding Infectious Disease History: No Infectious Disease History: Denies: Hx Clostridium Difficile, Hx Hepatitis, Hx of Known/Suspected MRSA, Hx Shingles, Hx Tuberculosis, Hx Known/Suspected VRE, Traveled Outside the [place] in Last 30 Days - Family History Known Family History: Positive: Cardiac Disease, Hypertension - Social History Alcohol Use: None Substance Use Type: Reports: None Smoking Status (MU): Never Smoked Tobacco Review of Systems Negative: Fever Negative: Chest Pain Negative: Shortness Of Breath Positive: Abdominal Pain All Other Systems Reviewed And Are Negative: Yes Physical Exam Triage Information Reviewed: Yes Vital Signs On Initial Exam: Initial Vitals Temp Pulse Resp BP Pulse Ox 98.5 F 78 16 169/123 95 08/07/19 17:37 08/07/19 17:37 08/07/19 17:37 08/07/19 17:37 08/07/19 17:37 Vital Signs Reviewed: Yes Appearance: Positive: Well-Appearing Skin: Positive: Warm, Dry Head/Face: Positive: Normal Head/Face Inspection Eyes: Positive: Normal, Conjunctiva Clear ENT: Positive: Pharynx normal Respiratory/Lung Sounds: Positive: Clear to Auscultation, Breath Sounds Present Cardiovascular: Positive: Normal, RRR Abdomen Description: Positive: Nontender, Soft Bowel Sounds: Positive: Present Musculoskeletal: Positive: Normal Neurological: Positive: Normal Psychiatric: Positive: Normal Diagnostics - Vital Signs Vital Signs Temp Pulse Resp BP Pulse Ox 08/07/19 17:37 98.5 F 78 16 169/123 95 - Laboratory Lab Results: Lab Results 08/07/19 Range/Units 18:50 Urine Color Yellow Urine Appearance Cloudy Urine pH 8.0 (5-9) Ur Specific Warren 1.013 (1.010-1.030) Urine Protein 2+(100 mg/dl) A (Negative) Urine Ketones Negative (Negative) Urine Blood 2+ A (Negative) Urine Nitrate Positive A (Negative) Urine Bilirubin Negative (Negative) Urine Urobilinogen Negative (Negative) Ur Leukocyte Esterase 3+ A (Negative) Urine WBC (Auto) 3+(>20/hpf) A (Absent) Urine RBC (Auto) 3+(>10/hpf) A (Absent) Urine Bacteria 1+ A (Absent) Urine Glucose Negative (Negative) Lab Statement: Any lab studies that have been ordered have been reviewed, and results considered in the medical decision making process. GIGU Course/Dx - Course Course Of Treatment: 79 year male presents with a catheter pain today. He states he has had a urinary catheter for the past year. He states now once a month for the past 3 month he seen to need it changed. He states that it hasn' t walked for 3 hours. He states a lot of bladder pressure. He states has not been draining. No fevers. No chills. No nausea vomiting. Denies any chest pain or shortness of breath. Has no other symptoms. See Dr. Allen for urology. On exam nontender abdomen after catheter was changed. Urine shows a potential UTI so will treat with Bactrim. Told to follow urology. Patient understands and agrees with plan. - Diagnoses Differential Diagnoses - Male: Pyelonephritis, Urinary Tract Infection, Other - catheter replacement Provider Diagnoses: UTI (urinary tract infection), Stone catheter in place Discharge ED - Sign-Out/Discharge Documenting (check all that apply): Patient Departure Patient Received Moderate/Deep Sedation with Procedure: No - Discharge Plan Condition: Good Disposition: HOME Prescriptions: Sulfamethox/Trimethoprim DS* [Bactrim DS 800/160 TAB*] 1 tab PO BID #9 tab Patient Education Materials: Stone Catheter Placement and Care (ED) Referrals: Mariusz Freeman MD [Primary Care Provider] - Fernando Allen MD [Medical Doctor] - Additional Instructions: take bactrim twice a day for 5 days follow up with urology Return to ED if develop any fever or any new or worsening symptoms - Billing Disposition and Condition Condition: GOOD Disposition: Home
[2019-08-07] MEDS ORDERED: Sulfamethox/Trimethoprim DS 800/160* TAB PO ONE (19:10)
[2019-08-07 19:57] VITALS: BP 164/95
== END 2019-08-07 19:55 | disposition home or self-care (01) ==
LOC: ED 17:35
DX: N39.0 Urinary tract infection, site not specified (principal); Z96.0 Presence of urogenital implants; I25.10 Atherosclerotic heart disease of native coronary artery without angina pectoris; E78.00 Pure hypercholesterolemia, unspecified; I25.2 Old myocardial infarction; N40.0 Benign prostatic hyperplasia without lower urinary tract symptoms; Z95.5 Presence of coronary angioplasty implant and graft; Z79.82 Long term (current) use of aspirin; Z79.899 Other long term (current) drug therapy
CPT/HCPCS: 81003; 81015; 87077; 87086; 87186; 99282; A9270-GY

== ENCOUNTER 2019-08-15 16:17 | Emergency (ER) | payer MEDICARE ==
--- NOTE | 2019-08-15 16:49 | UC ---
Syncope/New Syncope HPI - HPI Summary HPI Summary: 79-year-old male presents with reports of syncopal episode that occurred at approximately 2:00 PM this afternoon. States he was sitting at a table playing bingo when he suddenly felt as if he was going to pass out. His friends who were with him state that he then became unresponsive for approximately 3-10 minutes. No seizure-like activity was witnessed. Friends state that he was cold and diaphoretic. When patient regained consciousness he appeared to be at his baseline mental status. EMS was contacted and evaluated him however the patient reports refused transport to the emergency room at that time. Patient has extensive cardiac history including an TX and cardiac stents. Patient states that he has had irregular heart rhythms in the past but is unsure of what type of arrhythmia. Denies chest pain, palpitations, headache, visual disturbances, facial droop, slurred or difficulty speaking, numbness, tingling, or weakness of the arms or legs. - History Of Current Complaint Stated Complaint: LOSS OF CONSCIOUSNESS Time Seen by Provider: 08/15/19 16:21 Hx Obtained From: Patient Pain Intensity: 0 - Allergies/Home Medications Allergies/Adverse Reactions: Allergies Allergy/AdvReac Type Severity Reaction Status Date / Time No Known Allergies Allergy Verified 08/15/19 16:21 PMH/Surg Hx/FS Hx/Imm Hx - Additional Past Medical History Additional PMH: Glaucoma Endocrine History: Dyslipidemia Cardiovascular History: Cardiac Disease, Hypertension, Myocardial Infarction GI/ History: Gastroesophageal Reflux, Other - BPH Other History Of: Negative For: Anticoagulant Therapy - Surgical History Surgical History: Yes Surgery Procedure, Year, and Place: [place] WITH STENT. MULTIPLE HERNIA REPAIRS, left side rib repair,. right femur rodding - Family History Known Family History: Positive: Cardiac Disease, Hypertension - Social History Occupation: Retired Lives: Assisted Living Alcohol Use: None Substance Use Type: None Smoking Status (MU): Never Smoked Tobacco - Immunization History Most Recent Influenza Vaccination: unknown Most Recent Tetanus Shot: unknown Most Recent Pneumonia Vaccination: unknown Review of Systems All Other Systems Reviewed And Are Negative: Yes Constitutional: Negative: Fever, Chills Eyes: Negative: Blurred Vision, Diplopia, Photophobia ENT: Positive: Negative Respiratory: Negative: Shortness Of Breath, Cough Cardiovascular: Negative: Palpitations, Chest Pain Gastrointestinal: Negative: Abdominal Pain, Vomiting, Diarrhea, Nausea Genitourinary: Positive: Negative Musculoskeletal: Positive: Negative Neurological: Negative: Headache, Weakness, Paresthesia, Numbness Is Patient Immunocompromised?: No Physical Exam - Summary Physical Exam Summary: GENERAL APPEARANCE: Older adult male who is awake, alert and oriented x 4 and appears to be in no acute distress. CARDIAC: Normal S1 and S2. Irregularly irregular rhythm. There is no peripheral edema, cyanosis or pallor. Extremities are warm and well perfused. Capillary refill is less than 2 seconds. Peripheral pulses intact. LUNGS: Clear to auscultation without rales, rhonchi, wheezing or diminished breath sounds. ABDOMEN: Positive bowel sounds. Soft, nondistended, nontender. No guarding or rebound. No masses or hepatosplenomegally. MUSKULOSKELETAL: ROM intact to all extremities. No joint erythema or tenderness. Normal muscular development. NEUROLOGICAL: CN II-XII intact. Strength and sensation symmetric and intact throughout. Reflexes 2+ throughout. SKIN: Skin normal color, texture and turgor with no lesions or eruptions. Triage Information Reviewed: Yes Vital Signs: Initial Vital Signs Temp 97.7 F 08/15/19 16:31 Pulse 108 08/15/19 16:31 Resp 20 08/15/19 16:31 BP 150/82 08/15/19 16:31 Pulse Ox 98 08/15/19 16:31 Vital Signs Reviewed: Yes Diagnostics - EKG Cardiac Rate: Tachycardia - Rate of 116 Cardiac Rhythm: Sinus: Normal - Possible 2nd degree HB Ectopy: None ST Segment: Normal EKG Comparison: Other - No present in EKG from 12/20/2018 Syncope Course/Dx - Course Course Of Treatment: 79-year-old male presents with reports of syncopal episode that occurred at approximately 2:00 PM this afternoon. States he was sitting at a table playing bingo when he suddenly felt as if he was going to pass out. His friends who were with him state that he then became unresponsive for approximately 3-10 minutes. No seizure-like activity was witnessed. Friends state that he was cold and diaphoretic. When patient regained consciousness he appeared to be at his baseline mental status. EMS was contacted and evaluated him however the patient reports refused transport to the emergency room at that time. Patient has extensive cardiac history including an TX and cardiac stents. Patient states that he has had irregular heart rhythms in the past but is unsure of what type of arrhythmia. Denies chest pain, palpitations, headache, visual disturbances, facial droop, slurred or difficulty speaking, numbness, tingling, or weakness of the arms or legs. Afebrile. Hypertensive and tachycardic with otherwise stable vital signs. Patient was neurologically intact and without complaints at the time of evaluation. He was noted to have an irregularly irregular heart rate and otherwise unremarkable exam. Twelve-lead EKG showed a sinus tachycardia with an irregular rhythm. There is some question as to whether there may be some increase in the FL interval with a dropped QRS complex suggestive of second-degree heart block which was not present in his old EKG from 12/20/2018. No ST elevation or ectopy was noted. Based on the EKG changes and his history of syncope I am recommending evaluated in the emergency room at this time with transport via EMS. Patient is agreeable to this. Case was discussed with SANA Bales at [facility] emergency room. - Differential Dx/Diagnosis Differential Diagnosis/HQI/PQRI: Cerebral Vascular Accident, Coronary Artery Disease, Dysrhythmia, Seizure, Transient Ischemic Attack, Vasovagal Episode Provider Diagnosis: Syncope, Syncope and collapse, Arrhythmia - Physician Notification/Consults Discussed Patient Care With: Scottie Odom Time Discussed With Above Provider: 16:55 Instructed by Provider To: Will See In ED Discharge ED - Sign-Out/Discharge Documenting (check all that apply): Patient Departure All imaging exams completed and their final reports reviewed: No Studies - Discharge Plan Condition: Guarded Disposition: TRANS HIGHER LVL OF CARE FAC Referrals: Mariusz Freeman MD [Primary Care Provider] - Additional Instructions: Based on your history and the abnormal EKG I am recommending that you be evaluated in the emergency department at this time with transport by EMS. - Billing Disposition and Condition Condition: GUARDED Disposition: Trans Higher Lvl of Care Fac
[2019-08-15 16:59] VITALS: BP 126/82
== END 2019-08-15 17:07 | disposition short-term general hospital (02) ==
LOC: UCCORT 16:17
DX: R55 Syncope and collapse (principal); I49.9 Cardiac arrhythmia, unspecified; I25.2 Old myocardial infarction; H40.9 Unspecified glaucoma; I10 Essential (primary) hypertension; Z95.1 Presence of aortocoronary bypass graft
CPT/HCPCS: 93005; 99213; G0463

== ENCOUNTER 2019-08-15 17:52 | Observation (INO) | payer MEDICARE ==
--- NOTE | 2019-08-15 18:17 | ED ---
Syncope/Near Syncope - HPI Summary HPI Summary: The patient is an 79 y/o M presenting to [facility] with a chief complaint of syncopal episode at 1600 today. He reports that he had been eating and playing bingo when he suddenly felt unwell. He thought that he lied his head down on the table, but he had a syncopal episode with loss of consciousness. He denies any dizziness, shortness of breath, chest pain, or headache associated with the event. He describes the sensation as a feeling of loss of balance. Currently, he is in no pain and feels much better. PMHx: CAD, HLD, IA with stent, peptic ulcer disease, BPH, right eye blindness. FHx: HTN, cardiac disease. Nonsmoker, no EtOH, no substance use. Medications reviewed. Allergies noted. - History Of Current Complaint Chief Complaint: EDSyncope Time Seen by Provider: 08/15/19 17:55 Hx Obtained From: Patient Onset/Duration: Sudden Onset, Lasting Minutes, Resolved Timing: Minutes Context: Witnessed, Loss Of Consciousness Activity At Onset: At Rest Associated Head Trauma: No Aggravating Factor(s): Nothing Alleviating Factor(s): Spontaneous Resolution Associated Signs And Symptoms: Other - loss of conciousness, "loss of balance" sensation. Negative: dizziness, chest pain, shortness of breath, headache - Allergies/Home Medications Allergies/Adverse Reactions: Allergies Allergy/AdvReac Type Severity Reaction Status Date / Time No Known Allergies Allergy Verified 08/15/19 16:21 Home Medications: Home Medications Metoprolol Tartrate TAB* [Lopressor TAB*] 12.5 mg PO BID 08/15/19 [History Confirmed 08/15/19] PMH/Surg Hx/FS Hx/Imm Hx Endocrine/Hematology History: Denies: Hx Anticoagulant Therapy, Hx Diabetes Cardiovascular History: Reports: Hx Coronary Artery Disease, Hx Hypercholesterolemia, Hx Myocardial Infarction Denies: Hx Hypertension, Hx Pacemaker/ICD Comment Only: Other Cardiovascular Problems/Disorders - IA Respiratory History: Denies: Hx Asthma, Hx Chronic Obstructive Pulmonary Disease (COPD), Hx Lung Cancer, Hx Pulmonary Embolism GI History: Reports: Other GI Disorders - peptic ulcer disease Denies: Hx Gastroesophageal Reflux Disease History: Reports: Hx Benign Prostatic Hyperplasia Denies: Hx Renal Disease Comment Only: Other Problems/Disorders - urine retention Musculoskeletal History: Reports: Hx Back Problems Sensory History: Reports: Hx Contacts or Glasses, Hx Legally Blind - Rt eye, Hx Hearing Problem Denies: Hx Cataracts, Hx Eye Injury, Hx Eye Prosthesis, Hx Glaucoma, Hx Macular Degeneration, Hx Deafness, Hx Hearing Aid Opthamlomology History: Reports: Hx Contacts or Glasses, Hx Legally Blind - Rt eye Denies: Hx Cataracts, Hx Eye Injury, Hx Eye Prosthesis, Hx Glaucoma, Hx Macular Degeneration Neurological History: Reports: Hx Headaches Psychiatric History: Denies: Hx Panic Disorder - Surgical History Surgical History: Yes Surgery Procedure, Year, and Place: [place] WITH STENT. MULTIPLE HERNIA REPAIRS, left side rib repair,. right femur rodding Infectious Disease History: No Infectious Disease History: Denies: Hx Clostridium Difficile, Hx Hepatitis, Hx of Known/Suspected MRSA, Hx Shingles, Hx Tuberculosis, Hx Known/Suspected VRE, Traveled Outside the [place] in Last 30 Days - Family History Known Family History: Positive: Cardiac Disease, Hypertension - Social History Alcohol Use: None Hx Substance Use: No Substance Use Type: Reports: None Hx Tobacco Use: No Smoking Status (MU): Never Smoked Tobacco Review of Systems Negative: Chest Pain Negative: Shortness Of Breath Negative: Nausea Neurological: Other - dizziness, "sensation of a loss of balance" Positive: Syncope - with loss of consciousness. Negative: Headache All Other Systems Reviewed And Are Negative: Yes Physical Exam - Summary Physical Exam Summary: VITAL SIGNS: Reviewed. GENERAL: Patient is a well-developed and nourished male who is lying comfortable in the stretcher. Patient is not in any acute respiratory distress. HEAD AND FACE: No signs of trauma. No ecchymosis, hematomas or skull depressions. No sinus tenderness. EYES: PERRLA, EOMI x 2, No injected conjunctiva, no nystagmus. No photophobia. EARS: Hearing grossly intact. Ear canals and tympanic membranes are within normal limits. MOUTH: Oropharynx within normal limits. NECK: Supple, trachea is midline, no adenopathy, no JVD, no carotid bruit, no c- spine tenderness, neck with full ROM. No meningeal signs, no Kernig's or brudzinskis signs. CHEST: Symmetric, no tenderness at palpation. LUNGS: Clear to auscultation bilaterally. No wheezing or crackles. CVS: Regular rate and rhythm, S1 and S2 present, no murmurs or gallops appreciated. ABDOMEN: Soft, non-tender. No signs of distention. No rebound, no guarding, and no masses palpated. Bowel sounds are normal. EXTREMITIES: FROM in all major joints, no edema, no cyanosis or clubbing. NEURO: Alert and oriented x 3. No acute neurological deficits. Speech is normal and follows commands. SKIN: Dry and warm. GCS: 15. Triage Information Reviewed: Yes Vital Signs On Initial Exam: Initial Vitals Temp Pulse Resp BP Pulse Ox 98.8 F 108 16 127/89 97 08/15/19 18:07 08/15/19 18:07 08/15/19 18:07 08/15/19 18:07 08/15/19 18:07 Vital Signs Reviewed: Yes - Rabia Coma Scale Best Eye Response: 4 - Spontaneous Best Motor Response: 6 - Obeys Commands Best Verbal Response: 5 - Oriented Coma Scale Total: 15 Procedures - Sedation Patient Received Moderate/Deep Sedation with Procedure: No Diagnostics - Vital Signs Vital Signs Temp Pulse Resp BP Pulse Ox 08/15/19 18:07 98.8 F 108 16 127/89 97 - Laboratory Result Diagrams: 08/16/19 05:44 08/16/19 05:44 Lab Statement: Any lab studies that have been ordered have been reviewed, and results considered in the medical decision making process. - Radiology Chest X-Ray Radiology Interpretation Completed By: Radiologist Summary of Radiographic Findings: No acute pathology. ED physician has interpreted this report. Pending official read. - CT Brain CT CT Interpretation Completed By: Radiologist Summary of CT Findings: Impression: 1. No acute intracranial abnormality. 2. No change from the comparison study. ED physician has reviewed this report. - EKG 1846 Cardiac Rate: NL - 65 bpm EKG Rhythm: Sinus Rhythm Summary of EKG Findings: EKG at 1846 reveals NSR at [address] elevations. ED physician has reviewed and interpreted this EKG. Re-Evaluation - Re-Evaluation First Eval Re-Evaluation Time: 20:00 Change: Improved Comment: He is feeling well. We discussed plan for admission. Course/Dx Assessment/Plan: Patient is an 79 y/o M with chief complaint of syncopal episode with loss of consciousness but without head injury, dizziness, headache , chest pain, or shortness of breath occurring at 1600 today. Blood work without any significant abnormality except for some slight anemia, AST of 12, and troponin of 0.00. Head CT impression: No acute intracranial abnormality. No change from the prior. Chest x-ray impression: Cardiomegaly, no acute pathology. I discussed my physical exam and test results with Dr. Blackwell from the hospitalist services, and he agrees to admit patient to his services. Patient is hemodynamically stable alert and oriented x 3. - Diagnoses Provider Diagnoses: Syncope - Physician Notifications Discussed Care of Patient With: Teddy Blackwell - hospitalist Time Discussed With Above Provider: 19:55 Instructed by Provider To: Admit As Observation - I discussed the patients case with Dr. Blackwell who accepts the patient for admission. Discharge ED - Sign-Out/Discharge Documenting (check all that apply): Patient Departure - Patient is accepted for admission by Dr. Blackwell. - Discharge Plan Condition: Improved Disposition: ADMITTED TO [facility] - Billing Disposition and Condition Condition: IMPROVED Disposition: Admitted to [facility] - Attestation Statements Document Initiated by Niels: Yes Documenting Scribe: Nora Elizondo Provider For Whom Niels is Documenting (Include Credential): Dr. Don Wong MD Scribe Attestation: I, Nora Elizondo, scribed for Dr. Don Wong MD on 08/16/19 at 1851. Scribe Documentation Reviewed: Yes Provider Attestation: The documentation as recorded by the scribeNora accurately reflects the service I personally performed and the decisions made by me, Dr. Don Wong MD Status of Scribe Document: Viewed
[2019-08-15 18:46] LABS: ABS Lymphocytes 1.2 10^3/ul (1.0-4.8); ABS Monocytes 0.5 10^3/ul (0-0.8); ABS Neutrophils 5.4 10^3/ul (1.5-7.7); Eosinophil % 0.6 %; Hematocrit 41 % (42-52); Hemoglobin 13.8 g/dL (14.0-18.0); Lymphocyte % 16.5 %; Mean Corpuscular HGB Conc 33 g/dL (31-36); Mean Corpuscular Hemoglobin 31 pg (27-31); Mean Corpuscular Volume 93 fL (80-94); Mean Platelet Volume 7.2 fL (7.4-10.4); Nucleated Red Blood Cells % 0.2; Platelet Count 264 10^3/uL (150-450); Red Blood Count 4.42 10^6 /uL (4.18-5.48); Red Cell Distribution Width 14 % (10-15); White Blood Count 7.2 10^3/uL (3.5-10.8)
[2019-08-15 19:02] LABS: ALT 9 U/L (7-52); AST 12 U/L (13-39); Albumin 4.1 g/dL (3.2-5.2); Albumin/Globulin Ratio 1.5 (1-3); Alkaline Phosphatase 88 U/L (34-104); Anion Gap 6 mmol/L (2-11); BUN/Creatinine Ratio 15.8 (8-20); Blood Urea Nitrogen 16 mg/dL (6-24); CO2 Carbon Dioxide 26 mmol/L (22-32); Calcium 8.8 mg/dL (8.6-10.3); Chloride 105 mmol/L (101-111); Creatine Kinase 82 U/L (10-223); EGFR African American 85.8 (>60); EGFR Non-African American 70.9 (>60); Globulin 2.7 g/dL (2-4); Glucose 86 mg/dL (70-100); Magnesium 1.9 mg/dL (1.9-2.7); Potassium 4.2 mmol/L (3.5-5.0); Sodium 137 mmol/L (135-145); Total Protein 6.8 g/dL (6.4-8.9)
[2019-08-15 19:10] LABS: Alcohol < 10 mg/dL (<10)
[2019-08-15 19:22] LABS: TSH (Thyroid Stimulating Horm) 1.41 mcIU/mL (0.34-5.60)
[2019-08-15] MEDS ORDERED: Acetaminophen TAB* 325 MG PO PRN (23:29)
[2019-08-15] MEDS ORDERED: Enoxaparin(*) 30 MG/0.3 ML SYR SUBCUT SCH (23:45)
[2019-08-16] MEDS ORDERED: Pilocarpine 1% OPTH.SOL* 15 ML BTL RIGHT EYE SCH ×2
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
[2019-08-16 04:28] LABS: Urine Benzodiazepine Screen None Detected (None Detect); Urine Opiates Screen None Detected (None Detect)
[2019-08-16 05:51] LABS: ABS Basophils 0.1 10^3/ul (0-0.2); ABS Eosinophils 0.1 10^3/ul (0-0.6); ABS Lymphocytes 1.7 10^3/ul (1.0-4.8); ABS Monocytes 0.5 10^3/ul (0-0.8); ABS Neutrophils 3.8 10^3/ul (1.5-7.7); Eosinophil % 2.3 %; Hematocrit 42 % (42-52); Lymphocyte % 27.9 %; Mean Corpuscular HGB Conc 34 g/dL (31-36); Mean Corpuscular Hemoglobin 31 pg (27-31); Mean Corpuscular Volume 93 fL (80-94); Mean Platelet Volume 7.3 fL (7.4-10.4); Platelet Count 258 10^3/uL (150-450); Red Blood Count 4.49 10^6 /uL (4.18-5.48); Red Cell Distribution Width 14 % (10-15); White Blood Count 6.3 10^3/uL (3.5-10.8)
[2019-08-16 06:09] LABS: Anion Gap 7 mmol/L (2-11); CO2 Carbon Dioxide 26 mmol/L (22-32); Calcium 8.9 mg/dL (8.6-10.3); Chloride 107 mmol/L (101-111); Potassium 3.9 mmol/L (3.5-5.0); Sodium 140 mmol/L (135-145)
[2019-08-16 06:14] LABS: BUN/Creatinine Ratio 13.6 (8-20); Blood Urea Nitrogen 15 mg/dL (6-24); EGFR African American 77.7 (>60); EGFR Non-African American 64.2 (>60); Glucose 106 mg/dL (70-100)
[2019-08-16 06:33] LABS: % Iron Saturation 15 % (15-55); Iron 71 ug/dL (50-212); Total Iron Binding Capacity 462 mcg/dL (250-450); Transferrin 330 mg/dL (203-362)
[2019-08-16 06:47] LABS: Folate 9.37 ng/mL (>3.99)
[2019-08-16] MEDS: Gabapentin CAP(*) 300 MG PO SCH ×2 (08:09→16:41)
[2019-08-16] MEDS ORDERED: Aspirin 81 mg CHEW TAB* 81 MG TAB.CHEW PO SCH (09:00)
[2019-08-16] MEDS ORDERED: Niacin ER CAP* 500 MG CAP.ER PO SCH (09:00)
[2019-08-16] MEDS ORDERED: Pantoprazole TAB * 40 MG TAB PO SCH (09:00)
[2019-08-16] MEDS ORDERED: Cyanocobalamin TAB* 500 MCG PO SCH (09:00)
[2019-08-16] MEDS ORDERED: Finasteride TAB* 5 MG PO SCH (09:00)
[2019-08-16] MEDS ORDERED: Tamsulosin CAP* 0.4 MG PO SCH (09:00)
[2019-08-16] MEDS ORDERED: Timolol 0.25% OPHTH.SOLN* BTL RIGHT EYE SCH (09:00)
[2019-08-16] MEDS ORDERED: Metoprolol Tartrate TAB* 25 MG PO SCH (09:00)
[2019-08-16] MEDS ORDERED: NS 0.9% 1000 ML** 1,000 ML IV SCH (09:15)
[2019-08-16 15:44] LABS: Urine Appearance Cloudy; Urine Bacteria Absent (Absent); Urine Bilirubin Negative (Negative); Urine Blood Negative (Negative); Urine Color Yellow; Urine Glucose Negative (Negative); Urine Ketones Negative (Negative); Urine Nitrite Positive (Negative); Urine Protein Negative (Negative); Urine Red Blood Cell Absent (Absent); Urine Specific Gravity 1.016 (1.010-1.030); Urine Squamous Epithelial Cell Present (Absent); Urine Urobilinogen Negative (Negative); Urine White Blood Cell 2+(11-20/hpf) (Absent)
--- NOTE | 2019-08-16 16:13 | ECHO ---
*[facility]* [place] [address] Fax #: [phone] Transthoracic Echocardiogram Patient: Doyle Jefferson : 1940 Study Date: 08/16/2019 Age: 79 Gender: M HR: 62 bpm Height: 70 in /177.8 cm BSA: 2.14 m^2 Weight: 199.6 lb /90.7 kg BMI: 28.7 kg/m^2 *Heddle Machine Operator: * Naomi Osuna [facility] *Referring Physician: * Teddy Blackwell *Reading Physician: * Jimy West MD Indications: Syncope. History: Cerebrovascular accident. PMH: Myocardial infarction. Conclusions Summary: - Left ventricle: Systolic function is mildly reduced. The estimated ejection fraction is 45-50%. Mild diffuse hypokinesis. - Right ventricle: Systolic function is normal. Systolic pressure is within the normal range. - Mitral valve: There is trace to mild regurgitation. - Aortic valve: There is no evidence of stenosis. There is trace regurgitation. - Pericardium, extracardiac: There is no significant pericardial effusion. - Compared to study of 07/18/18, there is little change. Study data: Transthoracic echocardiogram. Procedure: Transthoracic echocardiography was performed. Image quality was fair. Complete 2D, spectral Doppler, and color flow Doppler. Location: Bedside. Patient status: Inpatient. Patient room number: 435. Rhythm: Normal sinus rhythm. Findings Left ventricle: The cavity size is normal. Wall thickness is mildly increased. Systolic function is mildly reduced. The estimated ejection fraction is 45-50%. Mild diffuse hypokinesis. Doppler parameters are consistent with abnormal left ventricular relaxation (grade 1 diastolic dysfunction). Right ventricle: The cavity size is mildly dilated. Systolic function is normal. Systolic pressure is within the normal range. Left atrium: The atrium is mildly dilated. Right atrium: The atrium is mildly dilated. Mitral valve: The leaflets are mildly thickened. There is no evidence of stenosis. There is trace to mild regurgitation. Aortic valve: The valve is trileaflet. The leaflets are mildly thickened. There is no evidence of stenosis. There is trace regurgitation. Tricuspid valve: The leaflets are normal thickness. There is no evidence of stenosis. There is trace to mild regurgitation. Pulmonic valve: The leaflets are normal thickness. There is no evidence of stenosis. There is trace regurgitation. Aorta: Aortic root: The aortic root is moderately dilated. Ascending aorta: The ascending aorta is mildly dilated. Aortic arch: The aortic arch is appears normal. Pericardium: A prominent pericardial fat pad is present. There is no significant pericardial effusion. Pulmonary arteries: The main pulmonary artery is normal-sized. Systolic pressure is within the normal range. Systemic veins: Inferior vena cava: The vessel is normal in size. There is (>= 50%) respiratory change in the IVC dimension. Measurements Left ventricle Value Ref Aortic valve continued Value Ref MARIAN, LAX 4.8 cm 4.2 - Mean grad, S 3.1 mm Hg ----- 5.8 Peak grad, S 5.1 mm Hg ----- ESD, LAX 4.0 cm 2.5 - LVOT/AV, VTI ratio 0.59 ----- 4.0 JOSELITO, VTI 1.94 cm^2 ----- FS, LAX (L) 16 % 25 - 43 JOSELITO, Vmax 1.95 cm^2 ----- PW, ED, LAX (H) 1.2 cm 0.6 - 1.0 Mitral valve Value Ref FS (L) 16 % 25 - 43 Peak E 0.42 m/sec ----- PW, ED (H) 1.2 cm 0.6 - Peak A 0.56 m/sec ----- 1.0 Decel time 437 ms ----- Peak E/A ratio 0.76 ----- LVOT Value Ref Diam, S 2.06 cm -------- Pulmonic valve Value Ref Area 3.3 cm^2 -------- Peak v, S 0.49 m/sec ----- Peak khris, S 0.64 m/sec -------- Peak grad, S 1.0 mm Hg ----- VTI, S 12.6 cm -------- Peak grad, S 2 mm Hg -------- Tricuspid valve Value Ref Mean grad, S 1 mm Hg -------- TR peak v 2.41 m/sec <=2.8 Peak RV-RA grad, S 23 mm Hg ----- Ventricular septum Value Ref IVS, ED (H) 1.2 cm 0.6 - Aortic root Value Ref 1.0 Root diam (H) 4.4 cm <4.2 Right ventricle Value Ref Ascending aorta Value Ref MARIAN, LAX 3.8 cm -------- AAo AP diam, S 4.1 cm ----- MARIAN minor ax, A4C (H) 4.6 cm 1.9 - AAo AP diam/bsa, S 1.9 cm/m^2 ----- mid 3.5 AAo peak v 0.54 m/sec ----- Pressure, S 26 mm Hg -------- Aortic arch Value Ref Left atrium Value Ref Arch diam 2.7 cm ----- ML dim, A4C 3.9 cm -------- SI dim, A4C 6.3 cm -------- Decending aorta Value Ref Vol, ES, 2-p 73 ml -------- Anthony peak khris 0.54 m/sec ----- Vol/bsa, ES, 2-p 34 ml/m^2 16 - 34 Pulmonary artery Value Ref Right atrium Value Ref Pressure, S 25.0 mm Hg ----- SI dim, ES 5.0 cm 3.4 - 5.3 Inferior vena cava Value Ref ML dim, ES, A4C (H) 4.8 cm 2.6 - Diam 1.7 cm ----- 4.4 SI dim, ES, A4C 5.0 cm 3.4 - 5.3 Estimated RAP 3 mm Hg -------- Aortic valve Value Ref Yola diam, S 2.1 cm 2.0 - 3.2 Yola diam/bsa, S (L) 1.0 cm/m^2 1.1 - 1.5 Peak v, S 1.13 m/sec -------- VTI, S 21.5 cm -------- Legend: (L) and (H) petr values outside specified reference range. Prepared and electronically signed by Jimy West MD 08/16/2019 16:13
[2019-08-16 17:11] VITALS: BP 149/78
[2019-08-16] MEDS ORDERED: Enoxaparin(*) 40 MG/0.4 ML SYR SUBCUT SCH (23:00)
--- NOTE | 2019-08-16 23:32 | DS ---
CC: Dr. Freeman * DISCHARGE SUMMARY: DATE OF ADMISSION: 08/15/19 DATE OF DISCHARGE: 08/16/19 PRIMARY CARE PROVIDER: Dr. Freeman. DISCHARGE DIAGNOSIS: Syncope likely due to orthostasis. SECONDARY DIAGNOSES: 1. History of indwelling Stone with recent urinary tract infection diagnosed and treated with 5 days of antibiotics starting 08/08/19. 2. History of coronary artery disease. 3. 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 4. History of BPH. MEDICATIONS AT HOME: Unchanged from admission and include: 1. Aspirin 81 mg daily. 2. Proscar 5 mg daily. 3. Gabapentin 900 mg 3 times a day. 4. Metoprolol tartrate 12.5 mg b.i.d. 5. Niaspan ER 500 mg daily. 6. Omeprazole 20 mg daily. 7. Pilocarpine 1% solution 1 drop right eye every other day. 8. Flomax 0.4 mg daily. 9. Timolol 0.25% one drop right eye b.i.d. 10. Acetaminophen on a p.r.n. basis. 11. Vitamin B12 of 500 mcg daily. LABORATORY DATA AND STUDIES PERFORMED DURING THE HOSPITAL STAY: Sodium of 140, potassium 3.9, chloride 107, carbon dioxide 26, BUN 15, creatinine 1.1. Liver function tests were unremarkable at admission. Iron studies showed iron of 71, TIBC of 462, percent iron saturation of 15, transferrin of 330. CBC on 08/16/19, white blood cell count of 6.3, hemoglobin of 14.0, hematocrit of 42, and platelets of 258. Urinalysis showed cloudy urine, nitrite positive, +3 esterase, +2 wbc's, absent bacteria. Transthoracic echocardiogram obtained on 08/15/19, impression: Ejection fraction of 45% to 50% with mild diffuse hypokinesis. Systolic pressure is mildly reduced. There was trace mitral regurgitation and trace aortic regurgitation, and compared to study from 07/18/18, there was little change. Carotid Doppler studies obtained on 08/16/19 showed no hemodynamically significant stenosis of either carotid artery. Chest x-ray obtained on admission, impression: "Findings consistent with COPD, no evidence of acute disease." Brain CT obtained on admission, impression: "No acute intracranial abnormality. No change from comparison study." HOSPITALIZATION COURSE: Doyle Rogowicz is an 79-year-old male who has a chronic indwelling Stone. He had a syncopal episode after lunch. He did not sustain any injuries. He was placed on overnight observation. surveillance system monitor bed showed no arrhythmias apart from rare PACs. The patient's orthostatics were slightly positive as to that that his blood pressure did not change significantly, but his heart rate did go up from 70 to 103 when standing. Due to that, the patient was diagnosed with likely orthostasis and treated with intravenous fluids. By the time of discharge, he was ambulating without any problems and no complaints of dizziness. The patient has a history of recent UTI for which he was treated by Dr. Freeman with 5 days of antibiotics less than a week prior to the patient's admission. It appears from my review of medical records that the patient was on Bactrim DS. The patient's cultures grew Proteus mirabilis, Morganella morganii, and Enterobacter cloacae complex, all of those bacteria were sensitive to Bactrim. At this point, the patient has no urinary symptoms. He does have an indwelling Stone. We discussed either possibility of further treatment since the patient' s urinalysis is somewhat positive versus awaiting the culture results and drinking plenty of liquids. At this point, the patient prefers not to use too many antibiotics and we are going to await for final cultures of the patient's urine. The patient's medications at discharge are unchanged. The patient is recommended to drink plenty of liquids and take his time when he is changing position from sitting to standing. He is recommended to follow up with Dr. Freeman in approximately 4 to 7 days. PHYSICAL EXAMINATION: At this time of discharge, blood pressure of 152/95, heart rate of 71 and regular, respiratory rate 19, oxygen saturation 100% on room air, temperature 98.9. General: The patient is a very pleasant 79-year- old male who is in no acute distress. Alert, awake, and oriented x3. HEENT: Head atraumatic and normocephalic. Eyes: The right eye is minimally reactive to light. The left pupil is reactive to light. Oropharynx clear. Mucosa moist. Neck: Supple. No JVD. No bruits bilaterally. Cardiovascular: Regular rate and rhythm. No murmurs. Respiratory: Clear to auscultation bilaterally. Abdomen: Soft and nontender. Bowel sounds present in all 4 quadrants. Extremities: There is no edema. Pulses are +2 bilaterally. No clubbing or cyanosis. On neuro evaluation, speech clear. Cranial nerves II through XII grossly intact. Motor strength is 5/5 bilaterally. Please note that this is a short summary of the patient's hospital stay. Please refer to further medical records for details. DISPOSITION ON DISCHARGE: Discharged to home. CONDITION ON DISCHARGE: Stable. [id number]/[facility] #: [id number] [facility]ITALJocelyn
[2019-08-17] MEDS ORDERED: Pilocarpine 1% OPTH.SOL* 15 ML BTL RIGHT EYE SCH (09:00)
== END 2019-08-16 17:41 | disposition home or self-care (01) ==
LOC: ED 17:52 → MEDTELE 23:21
PROVIDERS: ADMIT Internal Medicine; ATTEND Internal Medicine
DX: R55 Syncope and collapse (principal); N39.0 Urinary tract infection, site not specified; Z96.0 Presence of urogenital implants; I25.10 Atherosclerotic heart disease of native coronary artery without angina pectoris; N40.0 Benign prostatic hyperplasia without lower urinary tract symptoms; Z79.82 Long term (current) use of aspirin; Z79.899 Other long term (current) drug therapy; Z95.5 Presence of coronary angioplasty implant and graft; E78.5 Hyperlipidemia, unspecified; I10 Essential (primary) hypertension; Z87.891 Personal history of nicotine dependence; I49.9 Cardiac arrhythmia, unspecified; I25.2 Old myocardial infarction; H40.9 Unspecified glaucoma; Z95.1 Presence of aortocoronary bypass graft; R94.31 Abnormal electrocardiogram [ECG] [EKG]
CPT/HCPCS: 36415; 70450; 71046; 80048; 80053; 80307; 80320; 81003; 81015; 82140; 82550; 82607; 82746; 83540; 83550; 83605; 83735; 83880; 84443; 84484; 85025; 87077; 87086; 87186; 93005; 93306; 93880; 96372; 99213; 99284; A9270-GY; G0378; G0463; G0480; J1650

== ENCOUNTER 2019-09-19 12:38 | Emergency (ER) | payer MEDICARE ==
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
--- NOTE | 2019-09-19 13:27 | ED ---
Respiratory - HPI Summary HPI Summary: Pt is an 79 y/o M presenting to the ED with a chief complaint of respiratory illness. Pt states for the past 4-5 days, his mouth has been dry and he has been suffering from congestion, decreased appetite, and intermittent nausea. He denies any pain or shortness of breath. He feels somewhat better today but thought he should be evaluated anyway. - History of Current Complaint Chief Complaint: EDUpperRespComplaint Stated Complaint: DONT FEEL GOOD PER PT Time Seen by Provider: 09/19/19 13:14 Hx Obtained From: Patient Onset/Duration: Gradual Onset, Lasting Days, Still Present Timing: Constant Initial Severity: Moderate Current Severity: Moderate Pain Intensity: 4 Sputum Amount: None Aggravating Factor(s): Nothing Alleviating Factor(s): Nothing Associated Signs and Symptoms: Nasal Congestion - Allergy/Home Medications Allergies/Adverse Reactions: Allergies Allergy/AdvReac Type Severity Reaction Status Date / Time No Known Allergies Allergy Verified 09/19/19 12:45 Home Medications: Home Medications Acetaminophen [Tylenol Extra Strength] 500 mg PO Q6HR PRN 09/19/19 [History Confirmed 09/19/19] Cyanocobalamin TAB* [Vitamin B12 TAB*] 1,000 mcg PO BID 09/19/19 [History Confirmed 09/19/19] Metoprolol Succinate XL TAB* [Toprol XL TAB*] 25 mg PO DAILY 09/19/19 [History Confirmed 09/19/19] Travoprost 0.004% (NF) [Travatan Z (NF)] 1 drop RIGHT EYE QPM 09/19/19 [History Confirmed 09/19/19] PMH/Surg Hx/FS Hx/Imm Hx Previously Healthy: Yes Endocrine/Hematology History: Denies: Hx Anticoagulant Therapy, Hx Diabetes, Hx Thyroid Disease, Hx Anemia Cardiovascular History: Reports: Hx Coronary Artery Disease, Hx Hypercholesterolemia, Hx Myocardial Infarction Denies: Hx Angina, Hx Hypertension, Hx Pacemaker/ICD, Hx Peripheral Vascular Disease, Hx Syncope Comment Only: Other Cardiovascular Problems/Disorders - OH Respiratory History: Denies: Hx Asthma, Hx Chronic Obstructive Pulmonary Disease (COPD), Hx Lung Cancer, Hx Pulmonary Embolism GI History: Reports: Other GI Disorders - peptic ulcer disease Denies: Hx Gastroesophageal Reflux Disease History: Reports: Hx Benign Prostatic Hyperplasia Denies: Hx Renal Disease Comment Only: Other Problems/Disorders - urine retention Musculoskeletal History: Reports: Hx Back Problems Sensory History: Reports: Hx Contacts or Glasses, Hx Legally Blind - Rt eye, Hx Vision Problem - R eye blindness, Hx Hearing Problem Denies: Hx Cataracts, Hx Eye Injury, Hx Eye Prosthesis, Hx Glaucoma, Hx Macular Degeneration, Hx Deafness, Hx Hearing Aid, Other Sensory Impairments Opthamlomology History: Reports: Hx Contacts or Glasses, Hx Legally Blind - Rt eye, Hx Vision Problem - R eye blindness Denies: Hx Cataracts, Hx Eye Injury, Hx Eye Prosthesis, Hx Glaucoma, Hx Macular Degeneration, Other Sensory Impairments Neurological History: Reports: Hx Headaches Denies: Hx Dementia, Hx Developmental Delay, Hx Migraine, Hx Nerve Disease, Hx Seizures, Hx Spinal Cord Injury, Hx Transient Ischemic Attacks (TIA), Other Neuro Impairments/Disorders Psychiatric History: Denies: Hx Panic Disorder - Surgical History Surgery Procedure, Year, and Place: [place] WITH STENT. MULTIPLE HERNIA REPAIRS, left side rib repair,. right femur rodding Hx Anesthesia Reactions: No Infectious Disease History: No Infectious Disease History: Denies: Hx Clostridium Difficile, Hx Hepatitis, Hx Human Immunodeficiency Virus (HIV), Hx of Known/Suspected MRSA, Hx Shingles, Hx Tuberculosis, Hx Known/ Suspected VRE, Traveled Outside the [place] in Last 30 Days - Family History Known Family History: Positive: Cardiac Disease, Hypertension - Social History Alcohol Use: None Hx Substance Use: No Substance Use Type: Reports: None Hx Tobacco Use: No Smoking Status (MU): Never Smoked Tobacco Review of Systems Positive: Other - decreased appetite Positive: Nasal Discharge, Other - dry mouth Negative: Shortness Of Breath Negative: Myalgia All Other Systems Reviewed And Are Negative: Yes Physical Exam - Summary Physical Exam Summary: Appearance: The patient is well-nourished in no acute distress and in no acute pain. Skin: The skin is warm and dry, and skin color reflects adequate perfusion. HEENT: The head is normocephalic and atraumatic. The pupils are equal and reactive. The conjunctivae are clear and without drainage. Nares are patent and without drainage. Mouth reveals dry mucous membranes, and the throat is without erythema and exudate. The external ears are intact. The ear canals are patent and without drainage. The tympanic membranes are intact. Neck: The neck is supple with full range of motion and non-tender. There are no carotid bruits. There is no neck vein distension. Respiratory: Chest is non-tender. Lungs are clear to auscultation and breath sounds are symmetrical and equal. Cardiovascular: Heart is regular rate and rhythm. There is no murmur or rub auscultated. There is no peripheral edema and pulses are symmetrical and equal. Abdomen: The abdomen is soft and non-tender. There are normal bowel sounds heard in all four quadrants and there is no organomegaly palpated. Musculoskeletal: There is no back tenderness noted. Extremities are non-tender with full range of motion. There is good capillary refill. There is no peripheral edema or calf tenderness elicited. Neurological: Patient is alert and oriented to person, place and time. The patient has symmetrical motor strength in all four extremities. Cranial nerves are grossly intact. Deep tendon reflexes are symmetrical and equal in all four extremities. Psychiatric: The patient has an appropriate affect and does not exhibit any anxiety or depression. Triage Information Reviewed: Yes Vital Signs On Initial Exam: Initial Vitals Temp Pulse Resp BP Pulse Ox 97.2 F 82 16 161/112 99 09/19/19 12:40 09/19/19 12:40 09/19/19 12:40 09/19/19 12:40 09/19/19 12:40 Vital Signs Reviewed: Yes Procedures - Sedation Patient Received Moderate/Deep Sedation with Procedure: No Diagnostics - Vital Signs Vital Signs Temp Pulse Resp BP Pulse Ox 09/19/19 12:40 97.2 F 82 16 161/112 99 - Laboratory Result Diagrams: 09/19/19 13:40 09/19/19 13:40 Lab Statement: Any lab studies that have been ordered have been reviewed, and results considered in the medical decision making process. - Radiology CXR Radiology Interpretation Completed By: Radiologist Summary of Radiographic Findings: No evidence for active cardiopulmonary disease. ED physician has reviewed this report. - CT CT a/p CT Interpretation Completed By: Radiologist Summary of CT Findings: 1. MILD INTRAHEPATIC BILIARY DILATATION. 2. STATUS POST CHOLECYSTECTOMY. 3. FATTY ATROPHY OF THE PANCREAS. 4. DIVERTICULOSIS. 5. ATHEROSCLEROSIS. 6. VENTRAL HERNIA. 7. 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 ED physician has reviewed this report. - EKG 1352 Cardiac Rate: NL - 75bpm EKG Rhythm: Sinus Rhythm ST Segment: Normal Ectopy: None Summary of EKG Findings: EKG at 1352 shows normal sinus rhythm at 75bpm, normal ST, no ectopy, no STEMI. Nonspecific T-waves in the anterior leads. ED physician has reviewed and interpreted this report. 1644 Cardiac Rate: NL - 96bpm EKG Rhythm: Sinus Rhythm ST Segment: Normal Ectopy: None Summary of EKG Findings: EKG at 1644 shows normal sinus rhythm at 96bpm, normal ST, no ectopy, no STEMI. Nonspecific T-waves in the anterior leads. No change from 1352. ED physician has reviewed and interpreted this report. Re-Evaluation - Re-Evaluation First Eval Re-Evaluation Time: 20:30 Change: Improved Comment: Patient reports feeling mildly better with treatment Second Eval Re-Evaluation Time: 21:58 Comment: Discussed results with patient. Pt will be discharged home with dx of nausea. Pt understands and agrees. Disposition - Course Course Of Treatment: Mr. Jefferson had vague complaints when he arrived. He was nontoxic in appearance with stable vitals aside from a very mildly elevated blood pressure. He has been intermittently nauseated and not taking his medications well. He got some fluids here while labs, EKG and x-ray were obtained and were not very remarkable. At one point he complained of nausea and got Compazine which seemed to help. I'm quite concerned as his presentation was very vague and I could not find anything and I recommended that he follow-up within the next day or [address] Lujan. - Diagnoses Provider Diagnoses: Nausea Discharge ED - Sign-Out/Discharge Documenting (check all that apply): Patient Departure - Discharge - Discharge Plan Condition: Stable Disposition: HOME Prescriptions: Prochlorperazine TAB* [Compazine Tab*] 10 mg PO Q6H PRN #10 tab PRN Reason: Nausea Patient Education Materials: Acute Nausea and Vomiting (ED) Referrals: Mariusz Freeman MD [Primary Care Provider] - 1 Day Additional Instructions: Follow up with your primary care provider tomorrow or Thursday. RETURN TO THE ER FOR WORSENING OR CHANGING SYMPTOMS. - Billing Disposition and Condition Condition: STABLE Disposition: Home - Attestation Statements Document Initiated by Scribe: Yes Documenting Scribe: Mary Doran and Mariusz Watkins Provider For Whom Scribe is Documenting (Include Credential): Nahum Ruth MD Scribe Attestation: I, Mary Doran and Mariusz Watkins, scribed for Nahum Ruth MD on 09/19/19 at 2202. Scribe Documentation Reviewed: Yes Provider Attestation: The documentation as recorded by the scribe, Mary Doran and Mariusz Watkins accurately reflects the service I personally performed and the decisions made by me, Nahum Ruth MD Status of Scribe Document: Viewed
[2019-09-19] MEDS ORDERED: NS 0.9% 1000 ML** 1,000 ML IV ONE (13:47)
[2019-09-19 13:58] LABS: ABS Lymphocytes 1.5 10^3/ul (1.0-4.8); ABS Monocytes 0.9 10^3/ul (0-0.8); ABS Neutrophils 8.2 10^3/ul (1.5-7.7); Eosinophil % 0.1 %; Hematocrit 48 % (42-52); Hemoglobin 16.5 g/dL (14.0-18.0); Lymphocyte % 13.8 %; Mean Corpuscular HGB Conc 35 g/dL (31-36); Mean Corpuscular Hemoglobin 32 pg (27-31); Mean Corpuscular Volume 92 fL (80-94); Mean Platelet Volume 7.7 fL (7.4-10.4); Nucleated Red Blood Cells % 0.1; Platelet Count 289 10^3/uL (150-450); Red Blood Count 5.21 10^6 /uL (4.18-5.48); Red Cell Distribution Width 14 % (10-15); White Blood Count 10.6 10^3/uL (3.5-10.8)
[2019-09-19 14:11] LABS: ALT 11 U/L (7-52); AST 14 U/L (13-39); Albumin 4.6 g/dL (3.2-5.2); Albumin/Globulin Ratio 1.3 (1-3); Alkaline Phosphatase 98 U/L (34-104); Anion Gap 12 mmol/L (2-11); BUN/Creatinine Ratio 21.9 (8-20); Blood Urea Nitrogen 23 mg/dL (6-24); C Reactive Protein < 1.00 mg/L (<8.01); CO2 Carbon Dioxide 24 mmol/L (22-32); Calcium 10.3 mg/dL (8.6-10.3); Chloride 100 mmol/L (101-111); EGFR Non-African American 67.8 (>60); Globulin 3.5 g/dL (2-4); Glucose 115 mg/dL (70-100); Potassium 3.7 mmol/L (3.5-5.0); Sodium 136 mmol/L (135-145); Total Protein 8.1 g/dL (6.4-8.9); Troponin I 0.01 ng/mL (<0.04)
[2019-09-19] MEDS ORDERED: Ondansetron INJ* 2 MG/ML VIAL IV ONE (15:23)
[2019-09-19] MEDS ORDERED: Iohexol 300* (CONTRAST) 10 ML SDV IV ONE (15:45)
[2019-09-19] MEDS ORDERED: PROCHLORPERAZINE INJ 5 MG/ML 2 ML VIAL IV PRN (18:27)
[2019-09-19] MEDS ORDERED: Metoprolol Tartrate IV* 1 MG/ML 5 ML VIAL IV ONE (20:58)
[2019-09-19 23:08] VITALS: BP 0/0
== END 2019-09-19 23:05 | disposition home or self-care (01) ==
LOC: ED 12:38
DX: R11.0 Nausea (principal); K57.90 Diverticulosis of intestine, part unspecified, without perforation or abscess without bleeding; I70.0 Atherosclerosis of aorta; K43.9 Ventral hernia without obstruction or gangrene; I25.10 Atherosclerotic heart disease of native coronary artery without angina pectoris; E78.00 Pure hypercholesterolemia, unspecified; I25.2 Old myocardial infarction; N40.0 Benign prostatic hyperplasia without lower urinary tract symptoms; Z95.5 Presence of coronary angioplasty implant and graft; Z79.899 Other long term (current) drug therapy; Z90.49 Acquired absence of other specified parts of digestive tract
CPT/HCPCS: 36415; 71045; 74177; 80053; 83605; 84484; 85025; 86140; 93005; 96361; 96374; 96375; 99282; J0780; J2405; J3490; Q9967

== ENCOUNTER 2019-10-12 21:32 | Emergency (ER) | payer MEDICARE ==
--- NOTE | 2019-10-13 01:05 | ED ---
GI/ HPI - HPI Summary HPI Summary: Patient is an 79 y/o M presenting to the ED for a chief complaint of decreased urine output from his catheter that began on 10/12/19. Patient reports that he has 2/10 groin pain and is concerned he has a problem with his catheter. He has a history of calcium deposits in his catheter. He denies fever. Patient denies any aggravating or alleviating factors. Patient denies alcohol or tobacco use. - History of Current Complaint Chief Complaint: EDUrogenitalProblems Time Seen by Provider: 10/13/19 01:03 Stated Complaint: CATHETER PROBLEMS PER EMS Hx Obtained From: Patient Onset/Duration: Started Hours Ago, Atraumatic, Still Present Timing: Constant Severity: Mild Current Severity: Mild Pain Intensity: 2 Location of Pain: Groin Associated Signs and Symptoms: Positive: Other: - Positive decreased urine output. Negative: Fever - Additional Pertinent History Primary Care Physician: ДМИТРИЙ - Allergy/Home Medications Allergies/Adverse Reactions: Allergies Allergy/AdvReac Type Severity Reaction Status Date / Time No Known Allergies Allergy Verified 09/19/19 12:45 PMH/Surg Hx/FS Hx/Imm Hx Previously Healthy: Yes Endocrine/Hematology History: Denies: Hx Anticoagulant Therapy, Hx Diabetes, Hx Thyroid Disease, Hx Anemia Cardiovascular History: Reports: Hx Coronary Artery Disease, Hx Hypercholesterolemia, Hx Myocardial Infarction Denies: Hx Angina, Hx Hypertension, Hx Pacemaker/ICD, Hx Peripheral Vascular Disease, Hx Syncope Comment Only: Other Cardiovascular Problems/Disorders - [place] Respiratory History: Denies: Hx Asthma, Hx Chronic Obstructive Pulmonary Disease (COPD), Hx Lung Cancer, Hx Pulmonary Embolism GI History: Reports: Other GI Disorders - peptic ulcer disease Denies: Hx Gastroesophageal Reflux Disease History: Reports: Hx Benign Prostatic Hyperplasia Denies: Hx Renal Disease Comment Only: Other Problems/Disorders - urine retention Musculoskeletal History: Reports: Hx Back Problems Sensory History: Reports: Hx Contacts or Glasses, Hx Legally Blind - Rt eye, Hx Vision Problem - R eye blindness, Hx Hearing Problem Denies: Hx Cataracts, Hx Eye Injury, Hx Eye Prosthesis, Hx Glaucoma, Hx Macular Degeneration, Hx Deafness, Hx Hearing Aid, Other Sensory Impairments Opthamlomology History: Reports: Hx Contacts or Glasses, Hx Legally Blind - Rt eye, Hx Vision Problem - R eye blindness Denies: Hx Cataracts, Hx Eye Injury, Hx Eye Prosthesis, Hx Glaucoma, Hx Macular Degeneration, Other Sensory Impairments EENT History: Denies: Hx Deafness Neurological History: Reports: Hx Headaches Denies: Hx Dementia, Hx Developmental Delay, Hx Migraine, Hx Nerve Disease, Hx Seizures, Hx Spinal Cord Injury, Hx Transient Ischemic Attacks (TIA), Other Neuro Impairments/Disorders Psychiatric History: Denies: Hx Panic Disorder - Surgical History Surgical History: Yes Surgery Procedure, Year, and Place: [place] WITH STENT. MULTIPLE HERNIA REPAIRS, left side rib repair,. right femur rodding Hx Anesthesia Reactions: No Infectious Disease History: No Infectious Disease History: Denies: Hx Clostridium Difficile, Hx Hepatitis, Hx Human Immunodeficiency Virus (HIV), Hx of Known/Suspected MRSA, Hx Shingles, Hx Tuberculosis, Hx Known/ Suspected VRE, Traveled Outside the [place] in Last 30 Days - Family History Known Family History: Positive: Cardiac Disease, Hypertension - Social History Occupation: Retired Alcohol Use: None Hx Substance Use: No Substance Use Type: Reports: None Hx Tobacco Use: No Smoking Status (MU): Never Smoked Tobacco Review of Systems Negative: Fever Positive: pain - Groin, other - Positive decreased urine output All Other Systems Reviewed And Are Negative: Yes Physical Exam - Summary Physical Exam Summary: Appearance: Well-appearing, Well-nourished, lying in bed comfortable Skin: Warm, dry, no obvious rash Eyes: sclera anicteric, no conjunctival pallor ENT: mucous membranes moist Neck: deferred Respiratory: No signs of respiratory distress Cardiovascular: Appears well perfused, pulses are nml Abdomen: deferred Musculoskeletal: Moving all 4 extremities without obvious discomfort Neurological: Awake and alert, mentation is normal, speech is fluent and appropriate Psychiatric: affect is normal, does not appear anxious or depressed Triage Information Reviewed: Yes Vital Signs On Initial Exam: Initial Vitals Temp Pulse Resp BP Pulse Ox 98.3 F 65 20 150/94 98 10/12/19 21:40 10/12/19 21:40 10/12/19 21:40 10/12/19 21:40 10/12/19 21:40 Vital Signs Reviewed: Yes Procedures - Sedation Patient Received Moderate/Deep Sedation with Procedure: No Diagnostics - Vital Signs Vital Signs Temp Pulse Resp BP Pulse Ox 10/12/19 21:40 98.3 F 65 20 150/94 98 - Laboratory Lab Statement: Any lab studies that have been ordered have been reviewed, and results considered in the medical decision making process. GIGU Course/Dx - Course Course Of Treatment: Patient is an 79 y/o M presenting to the ED for a chief complaint of decreased urine output from his catheter that began on 10/12/19. Patient reports that he has 2/10 groin pain and is concerned he has a problem with his catheter. He has a history of calcium deposits in his catheter. He denies fever. Patient denies any aggravating or alleviating factors. Patient denies alcohol or tobacco use. On exam, unremarkable findings. Laboratory abnormal findings: urine protein 1+, urine ketones trace, urine blood 2+, urine nitrate positive, urine leukocyte esterase 3+, urine WBC 3+, urine RBC 3+, urine yeast present. Patient will be discharged with a diagnosis of wilkins catheter placement. Follow up with PCP as needed. - Diagnoses Provider Diagnoses: Encounter for Wilkins catheter replacement Discharge ED - Sign-Out/Discharge Documenting (check all that apply): Patient Departure - Discharge - Discharge Plan Condition: Good Disposition: HOME Patient Education Materials: Wilkins Catheter Placement and Care (ED) Referrals: Mariusz Freeman MD [Primary Care Provider] - If Needed Additional Instructions: Your catheter seems to have cleared. We sent a urine sample to the lab for culture and will contact you if you need to be on antibiotics. - Billing Disposition and Condition Condition: GOOD Disposition: Home - Attestation Statements Document Initiated by Niels: Yes Documenting Moisesibe: Josephine Hyatt Provider For Whom Niels is Documenting (Include Credential): Nahum Dill MD Scribe Attestation: Josephine Isbell scribed for Nahum Dill MD on 10/13/19 at 0633. Scribe Documentation Reviewed: Yes Provider Attestation: The documentation as recorded by the Josephine bird accurately reflects the service I personally performed and the decisions made by me, Nahum Dill MD Status of Scrjuancarlos Document: Viewed
[2019-10-13 01:30] LABS: Urine Appearance Turbid; Urine Bilirubin Negative (Negative); Urine Blood 2+ (Negative); Urine Color Yellow; Urine Glucose Negative (Negative); Urine Ketones Trace (Negative); Urine Nitrite Positive (Negative); Urine Protein 1+(30 mg/dL) (Negative); Urine Specific Gravity 1.012 (1.010-1.030); Urine Urobilinogen Negative (Negative)
[2019-10-13 01:40] LABS: Urine Bacteria Absent (Absent); Urine Red Blood Cell 3+(>10/hpf) (Absent); Urine White Blood Cell 3+(>20/hpf) (Absent)
[2019-10-13 04:07] VITALS: BP 0/0
--- NOTE | 2019-10-17 17:21 | ED ---
Imaging and Labs Follow Up Follow Up Type: Labs/Cultures Labs/Culture Result: Patient here with urinary catheter problem. He has persistent UTIs. No fever, however no squamous cells were present. 3+ leuks 3+ that WBCs. Patient Communication/Plan: Patient was called at 5:15 PM on 10/17/19 to make aware of results Prescription sent to pharmacy at this time, Keflex 500 mg twice a day 5 days. Patient Communication/Plan: Patient will fill the prescription today he states. He will follow up with urology. I have discussed with the patient, this is likely an ongoing issue that will need to be managed carefully with a urologist. Provider Diagnoses: Encounter for Stone catheter replacement
== END 2019-10-13 03:45 | disposition home or self-care (01) ==
LOC: ED 21:32
DX: Z46.6 Encounter for fitting and adjustment of urinary device (principal); I25.10 Atherosclerotic heart disease of native coronary artery without angina pectoris; I25.2 Old myocardial infarction; E78.00 Pure hypercholesterolemia, unspecified; N40.0 Benign prostatic hyperplasia without lower urinary tract symptoms; R51 Headache; Z79.82 Long term (current) use of aspirin
CPT/HCPCS: 81003; 81015; 87077; 87086; 87186; 99282

== ENCOUNTER 2019-11-03 07:46 | Emergency (ER) | payer MEDICARE ==
[2019-11-03] MEDS ORDERED: Ondansetron ODT TAB* 4 MG SL ONE (08:01)
[2019-11-03] MEDS ORDERED: Metoclopramide TAB* 10 MG PO ONE ×2 (08:58→08:59)
[2019-11-03] MEDS ORDERED: Simethicone TAB* 80 MG TAB.CHEW PO ONE (08:59)
[2019-11-03 09:16] LABS: ABS Lymphocytes 1.6 10^3/ul (1.0-4.8); ABS Monocytes 0.6 10^3/ul (0-0.8); Eosinophil % 0.3 %; Hematocrit 44 % (42-52); Hemoglobin 15.4 g/dL (14.0-18.0); Lymphocyte % 21.6 %; Mean Corpuscular HGB Conc 35 g/dL (31-36); Mean Corpuscular Hemoglobin 32 pg (27-31); Mean Corpuscular Volume 92 fL (80-94); Mean Platelet Volume 7.5 fL (7.4-10.4); Platelet Count 257 10^3/uL (150-450); Red Blood Count 4.83 10^6 /uL (4.18-5.48); Red Cell Distribution Width 14 % (10-15); White Blood Count 7.3 10^3/uL (3.5-10.8)
[2019-11-03 09:31] LABS: Albumin 4.3 g/dL (3.2-5.2); Albumin/Globulin Ratio 1.4 (1-3); BUN/Creatinine Ratio 13.4 (8-20); Calcium 10.1 mg/dL (8.6-10.3); EGFR African American 89.9 (>60); EGFR Non-African American 74.3 (>60); Globulin 3.1 g/dL (2-4); Potassium 4.7 mmol/L (3.5-5.0); Total Bilirubin 3.5 mg/dL (0.2-1.0); Total Protein 7.4 g/dL (6.4-8.9)
[2019-11-03 13:53] VITALS: BP 156/103
--- NOTE | 2019-11-03 15:54 | ED ---
Nausea/Vomiting/Diarrhea HPI - HPI Summary HPI Summary: This patient is an 79-year-old fairly otherwise healthy male with history of mild dementia ascending to the ED with multiple complaints. On arrival, he states he only has symptoms of nausea since about midnight. He denies any abdominal pain, urinary symptoms, CP or SOB. He denied any other symptoms on arrival, however later changed his story and states he was here for feeling of "pins and needles" his bilateral cheeks and forehead. Continues to endorse nausea, however does not complain of this, only when asked. Denies any fevers, sweats, chills. He states he does not sleep at night and would like to be admitted to the hospital. When asked why he would like to be admitted, he states he would like to know "what's going on." He states he has been having the symptoms for several months and has been seen here 6-8 times. When asked if he continues to have nausea, he acts confused and states he is here for his pins and needles although to EMS, he only had a chief complaint of nausea. Denies any vomiting, constipation or diarrhea. - History of Current Complaint Chief Complaint: EDNauseaVomitDiarrh Stated Complaint: NAUSEA PER EMS Time Seen by Provider: 11/03/19 07:48 Hx Obtained From: Patient Onset/Duration: Gradual Onset Timing: Constant Severity Initially: Mild Severity Currently: Mild Pain Intensity: 3 Pain Scale Used: 0-10 Numeric - Allergies/Home Medications Allergies/Adverse Reactions: Allergies Allergy/AdvReac Type Severity Reaction Status Date / Time No Known Allergies Allergy Verified 09/19/19 12:45 PMH/Surg Hx/FS Hx/Imm Hx Previously Healthy: Yes Endocrine/Hematology History: Denies: Hx Anticoagulant Therapy, Hx Diabetes, Hx Thyroid Disease, Hx Anemia Cardiovascular History: Reports: Hx Coronary Artery Disease, Hx Hypercholesterolemia, Hx Myocardial Infarction Denies: Hx Angina, Hx Hypertension, Hx Pacemaker/ICD, Hx Peripheral Vascular Disease, Hx Syncope Comment Only: Other Cardiovascular Problems/Disorders - ID Respiratory History: Denies: Hx Asthma, Hx Chronic Obstructive Pulmonary Disease (COPD), Hx Lung Cancer, Hx Pulmonary Embolism GI History: Reports: Other GI Disorders - peptic ulcer disease Denies: Hx Gastroesophageal Reflux Disease History: Reports: Hx Benign Prostatic Hyperplasia Denies: Hx Renal Disease Comment Only: Other Problems/Disorders - urine retention Musculoskeletal History: Reports: Hx Back Problems Sensory History: Reports: Hx Contacts or Glasses, Hx Legally Blind - Rt eye, Hx Vision Problem - R eye blindness, Hx Hearing Problem Denies: Hx Cataracts, Hx Eye Injury, Hx Eye Prosthesis, Hx Glaucoma, Hx Macular Degeneration, Hx Deafness, Hx Hearing Aid, Other Sensory Impairments Opthamlomology History: Reports: Hx Contacts or Glasses, Hx Legally Blind - Rt eye, Hx Vision Problem - R eye blindness Denies: Hx Cataracts, Hx Eye Injury, Hx Eye Prosthesis, Hx Glaucoma, Hx Macular Degeneration, Other Sensory Impairments Neurological History: Reports: Hx Headaches Denies: Hx Dementia, Hx Developmental Delay, Hx Migraine, Hx Nerve Disease, Hx Seizures, Hx Spinal Cord Injury, Hx Transient Ischemic Attacks (TIA), Other Neuro Impairments/Disorders Psychiatric History: Denies: Hx Panic Disorder - Surgical History Surgery Procedure, Year, and Place: [place] WITH STENT. MULTIPLE HERNIA REPAIRS, left side rib repair,. right femur rodding Hx Anesthesia Reactions: No - Immunization History Hx Pertussis Vaccination: No Immunizations Up to Date: Yes Infectious Disease History: No Infectious Disease History: Denies: Hx Clostridium Difficile, Hx Hepatitis, Hx Human Immunodeficiency Virus (HIV), Hx of Known/Suspected MRSA, Hx Shingles, Hx Tuberculosis, Hx Known/ Suspected VRE, Traveled Outside the [place] in Last 30 Days - Family History Known Family History: Positive: Cardiac Disease, Hypertension - Social History Occupation: Unemployed Lives: At [facility] Alcohol Use: None Hx Substance Use: No Substance Use Type: Reports: None Hx Tobacco Use: No Smoking Status (MU): Never Smoked Tobacco Review of Systems Negative: Fever, Chills, Fatigue, Skin Diaphoresis Negative: Palpitations, Chest Pain Negative: Shortness Of Breath, Cough Positive: Nausea Positive: no symptoms reported, see HPI Negative: Arthralgia, Myalgia Positive: Paresthesia - to face Psychological: Normal All Other Systems Reviewed And Are Negative: Yes Physical Exam Triage Information Reviewed: Yes Vital Signs On Initial Exam: Initial Vitals Pulse BP Pulse Ox 74 173/119 97 11/03/19 07:54 11/03/19 07:54 11/03/19 07:54 Vital Signs Reviewed: Yes Appearance: Positive: Well-Appearing, Well-Nourished Skin: Positive: Warm, Skin Color Reflects Adequate Perfusion Neck: Positive: Supple, Nontender, No Lymphadenopathy Respiratory/Lung Sounds: Positive: Clear to Auscultation, Breath Sounds Present Cardiovascular: Positive: RRR Musculoskeletal: Positive: Strength/ROM Intact Neurological: Positive: Speech Normal Psychiatric: Positive: Normal, Affect/Mood Appropriate Procedures - Sedation Patient Received Moderate/Deep Sedation with Procedure: No Diagnostics - Vital Signs Vital Signs Temp Pulse Resp BP Pulse Ox 11/03/19 12:40 99.6 F 99 16 156/103 94 11/03/19 12:34 156/103 11/03/19 12:26 26 81 11/03/19 12:23 158/108 11/03/19 11:53 171/108 11/03/19 11:23 87 149/101 96 11/03/19 11:16 84 95 11/03/19 10:53 90 179/101 94 11/03/19 10:23 91 169/98 98 11/03/19 10:00 82 96 11/03/19 09:53 81 158/109 93 11/03/19 09:23 73 162/103 97 11/03/19 09:00 73 98 11/03/19 08:53 73 169/103 99 11/03/19 08:23 72 165/109 98 11/03/19 08:06 77 97 11/03/19 07:57 99.6 F 74 18 173/119 98 11/03/19 07:54 74 173/119 97 - Laboratory Lab Results: Lab Results 11/03/19 11/03/19 Range/Units 09:08 09:08 WBC 7.3 (3.5-10.8) 10^3/uL RBC 4.83 (4.18-5.48) 10^6 /uL Hgb 15.4 (14.0-18.0) g/dL Hct 44 (42-52) % MCV 92 (80-94) fL MCH 32 H (27-31) pg MCHC 35 (31-36) g/dL RDW 14 (10-15) % Plt Count 257 (150-450) 10^3/uL MPV 7.5 (7.4-10.4) fL Neut % (Auto) 69.5 % Lymph % (Auto) 21.6 % Latimer % (Auto) 8.0 % Eos % (Auto) 0.3 % Baso % (Auto) 0.6 % Absolute Neuts (auto) 5.0 (1.5-7.7) 10^3/ul Absolute Lymphs (auto) 1.6 (1.0-4.8) 10^3/ul Absolute Monos (auto) 0.6 (0-0.8) 10^3/ul Absolute Eos (auto) 0.0 (0-0.6) 10^3/ul Absolute Basos (auto) 0.0 (0-0.2) 10^3/ul Absolute Nucleated RBC 0.0 10^3/ul Nucleated RBC % 0.0 Sodium 136 (135-145) mmol/L Potassium 4.7 (3.5-5.0) mmol/L Chloride 102 (101-111) mmol/L Carbon Dioxide 24 (22-32) mmol/L Anion Gap 10 (2-11) mmol/L BUN 13 (6-24) mg/dL Creatinine 0.97 (0.67-1.17) mg/dL Est GFR ( Amer) 89.9 (>60) Est GFR (Non-Af Amer) 74.3 (>60) BUN/Creatinine Ratio 13.4 (8-20) Glucose 99 (70-100) mg/dL Calcium 10.1 (8.6-10.3) mg/dL Total Bilirubin 3.50 H (0.2-1.0) mg/dL AST 13 (13-39) U/L ALT 12 (7-52) U/L Alkaline Phosphatase 92 (34-104) U/L Total Protein 7.4 (6.4-8.9) g/dL Albumin 4.3 (3.2-5.2) g/dL Globulin 3.1 (2-4) g/dL Albumin/Globulin Ratio 1.4 (1-3) Result Diagrams: 11/03/19 09:08 11/03/19 09:08 Lab Statement: Any lab studies that have been ordered have been reviewed, and results considered in the medical decision making process. Naus/Vom/Diarrhea Course/Dx - Course Course Of Treatment: Patient was given Zofran on arrival for his nausea. He states did not improve his symptoms and he was subsequently given Reglan. At this time as he continues to be nauseous, labs are obtained, these are WNL. No abdominal tenderness throughout on physical exam. Lungs CTA, RRR. Patient appears well in no acute distress. He is requesting to be admitted to the hospital. When asked why he would like to be admitted, he states he wants to know "what's going on." It is very difficult to obtain from the patient exactly the nature of his symptoms and why he is here in the hospital. When asked if his nausea has improved, he states he has no nausea, and is angry that we continue to ask about his nausea. (this was CC on arrival). Patient appears that he would just like to be admitted for the hospital for nonspecific reason. He does complain of "pins and needles" to his bilateral cheeks and forehead, however these have been present times approximately [address] brain was obtained which shows no acute findings. Again, discussed with the patient discharging home, to which he becomes upset. He states "I'll just come back." I have placed a SW consult and he is agrreable to leave at this time. NAD. VS stable. - Differential Dx/Diagnosis Provider Diagnosis: Facial paresthesia, Nausea Condition At Discharge: Stable Discharge ED - Sign-Out/Discharge Documenting (check all that apply): Patient Departure - Discharge Plan Condition: Stable Disposition: HOME Referrals: Mariusz Freeman MD [Primary Care Provider] - Additional Instructions: Please follow up with PCP and neurology if symptoms persist - Billing Disposition and Condition Condition: STABLE Disposition: Home - Attestation Statements Provider Attestation: I was available for consultation for this patient. I did not evaluate the patient or participate in any medical decision making or disposition decisions unless I am specifically named in the chart as having consulted on the patient. If I have consulted on the patient, please see my own ED note on the patient encounter. Kim Serrano MD
== END 2019-11-03 12:40 | disposition home or self-care (01) ==
LOC: ED 07:46
DX: R11.0 Nausea (principal); R20.2 Paresthesia of skin; F03.90 Unspecified dementia, unspecified severity, without behavioral disturbance, psychotic disturbance, mood disturbance, and anxiety; I25.10 Atherosclerotic heart disease of native coronary artery without angina pectoris; E78.00 Pure hypercholesterolemia, unspecified; I25.2 Old myocardial infarction; N40.0 Benign prostatic hyperplasia without lower urinary tract symptoms; Z95.5 Presence of coronary angioplasty implant and graft
CPT/HCPCS: 36415; 70450; 80053; 85025; 99285; A9270-GY

== ENCOUNTER → 2019-12-21 06:45 | Emergency (ER) | payer MEDICARE ==
--- NOTE | 2019-12-21 07:15 | ED ---
GI/ HPI - HPI Summary HPI Summary: This patient is an 79 year old male presenting to [facility] with a chief complaint of urinary urgency. Patient states he has a chronic indwelling catheter, reports penile pain which patient suspects is due to Stone obstructions. He states he has had this catheter for [address] Allen to manage his urology problems, and has an appointment scheduled in 4 days for replacement. Medications reviewed, allergies noted. - History of Current Complaint Chief Complaint: EDUrogenitalProblems Time Seen by Provider: 12/21/19 07:09 Stated Complaint: UNABLE TO GO TO BATHROOM Hx Obtained From: Patient Onset/Duration: Started Hours Ago Pain Intensity: 10 - Additional Pertinent History Primary Care Physician: ДМИТРИЙ - Allergy/Home Medications Allergies/Adverse Reactions: Allergies Allergy/AdvReac Type Severity Reaction Status Date / Time No Known Allergies Allergy Verified 12/21/19 06:46 Home Medications: Home Medications Tamsulosin CAP* [Flomax CAP*] 0.4 mg PO DAILY 12/21/19 [History Confirmed ] PMH/Surg Hx/FS Hx/Imm Hx Endocrine/Hematology History: Denies: Hx Anticoagulant Therapy, Hx Diabetes, Hx Thyroid Disease, Hx Anemia Cardiovascular History: Reports: Hx Coronary Artery Disease, Hx Hypercholesterolemia, Hx Myocardial Infarction Denies: Hx Angina, Hx Hypertension, Hx Pacemaker/ICD, Hx Peripheral Vascular Disease, Hx Syncope Comment Only: Other Cardiovascular Problems/Disorders - [place] Respiratory History: Denies: Hx Asthma, Hx Chronic Obstructive Pulmonary Disease (COPD), Hx Lung Cancer, Hx Pulmonary Embolism GI History: Reports: Other GI Disorders - peptic ulcer disease Denies: Hx Gastroesophageal Reflux Disease History: Reports: Hx Benign Prostatic Hyperplasia Denies: Hx Renal Disease Comment Only: Other Problems/Disorders - urine retention Musculoskeletal History: Reports: Hx Back Problems Sensory History: Reports: Hx Contacts or Glasses, Hx Legally Blind - Rt eye, Hx Vision Problem - R eye blindness, Hx Hearing Problem Denies: Hx Cataracts, Hx Eye Injury, Hx Eye Prosthesis, Hx Glaucoma, Hx Macular Degeneration, Hx Deafness, Hx Hearing Aid, Other Sensory Impairments Opthamlomology History: Reports: Hx Contacts or Glasses, Hx Legally Blind - Rt eye, Hx Vision Problem - R eye blindness Denies: Hx Cataracts, Hx Eye Injury, Hx Eye Prosthesis, Hx Glaucoma, Hx Macular Degeneration, Other Sensory Impairments Neurological History: Reports: Hx Headaches Denies: Hx Dementia, Hx Developmental Delay, Hx Migraine, Hx Nerve Disease, Hx Seizures, Hx Spinal Cord Injury, Hx Transient Ischemic Attacks (TIA), Other Neuro Impairments/Disorders Psychiatric History: Denies: Hx Panic Disorder - Surgical History Surgery Procedure, Year, and Place: [place] WITH STENT. MULTIPLE HERNIA REPAIRS, left side rib repair,. right femur rodding Hx Anesthesia Reactions: No Infectious Disease History: No Infectious Disease History: Denies: Hx Clostridium Difficile, Hx Hepatitis, Hx Human Immunodeficiency Virus (HIV), Hx of Known/Suspected MRSA, Hx Shingles, Hx Tuberculosis, Hx Known/ Suspected VRE, Traveled Outside the [place] in Last 30 Days - Family History Known Family History: Positive: Cardiac Disease, Hypertension - Social History Alcohol Use: None Hx Substance Use: No Substance Use Type: Reports: None Hx Tobacco Use: No Smoking Status (MU): Never Smoked Tobacco Review of Systems Negative: Fever Positive: pain - Penile, urgency All Other Systems Reviewed And Are Negative: Yes Physical Exam - Summary Physical Exam Summary: Constitutional: Well-developed, Well-nourished, Alert. (-) Distressed Skin: Warm, Dry HENT: Normocephalic; Atraumatic Eyes: Conjunctiva normal Neck: Musculoskeletal ROM normal neck. (-) JVD, (-) Stridor, (-) Tracheal deviation Cardio: Rhythm regular, rate normal, Heart sounds normal; Intact distal pulses; The pedal pulses are 2+ and symmetric. Radial pulses are 2+ and symmetric. (-) Murmur Pulmonary/Chest wall: Effort normal. (-) Respiratory distress, (-) Wheezes, (-) Rales Abd: Soft, (-) tenderness, (-) Distension, (-) Guarding, (-) Rebound Musculoskeletal: (-) Edema Lymph: (-) Cervical adenopathy Neuro: Alert, Oriented x3 Psych: Mood and affect Normal Triage Information Reviewed: Yes Vital Signs On Initial Exam: Initial Vitals Temp Pulse Resp BP Pulse Ox 96.9 F 77 18 196/124 98 12/21/19 06:48 12/21/19 06:48 12/21/19 06:48 12/21/19 06:48 12/21/19 06:48 Vital Signs Reviewed: Yes Procedures - Sedation Patient Received Moderate/Deep Sedation with Procedure: No Diagnostics - Vital Signs Vital Signs Temp Pulse Resp BP Pulse Ox 12/21/19 06:48 96.9 F 77 18 196/124 98 - Laboratory Result Diagrams: 12/21/19 08:56 12/21/19 08:56 Lab Statement: Any lab studies that have been ordered have been reviewed, and results considered in the medical decision making process. GIGU Course/Dx - Course Course Of Treatment: Patient is here with a clogged Stone catheter. Patient's had his catheter and for 5 weeks and is scheduled to get it changed on Thursday. We initially attempted to clear the catheter but was unsuccessful. The balloon was then deflated and rash was applied to release the catheter but was unsuccessful. Urology was called and he suggested cutting the balloon port. Patient did had a performed, stood up, and started screaming in pain and his catheter popped out on its own. Patient had successful replacement of his catheter and will follow up with Dr. Allen on Thursday - Diagnoses Provider Diagnoses: Stone catheter problem Discharge ED - Sign-Out/Discharge Documenting (check all that apply): Patient Departure - Discharge - Discharge Plan Condition: Stable Disposition: HOME Patient Education Materials: Stone Catheter Placement and Care (ED) Referrals: Mariusz Freeman MD [Primary Care Provider] - Additional Instructions: Follow up with on Thursday. Return with Fever, chills, your catheter stops working, or pain on your sides. - Billing Disposition and Condition Condition: STABLE Disposition: Home - Attestation Statements Document Initiated by Niels: Yes Documenting Moisesibe: Jerry Stinson Provider For Whom Niels is Documenting (Include Credential): Naveen Ortega MD Scribe Attestation: Jerry Isbell, scribed for Naveen Ortega MD on 12/21/19 at 1049. Scribe Documentation Reviewed: Yes Provider Attestation: The documentation as recorded by the Jerry bird accurately reflects the service I personally performed and the decisions made by me, Naveen Ortega MD Status of Scribe Document: Viewed
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
[2019-12-21 09:03] LABS: ABS Eosinophils 0.1 10^3/ul (0-0.6); ABS Monocytes 0.4 10^3/ul (0-0.8); ABS Neutrophils 6.1 10^3/ul (1.5-7.7); Eosinophil % 1.3 %; Hematocrit 46 % (42-52); Hemoglobin 15.9 g/dL (14.0-18.0); Lymphocyte % 13.3 %; Mean Corpuscular HGB Conc 34 g/dL (31-36); Mean Corpuscular Hemoglobin 33 pg (27-31); Mean Corpuscular Volume 95 fL (80-94); Mean Platelet Volume 7.7 fL (7.4-10.4); Nucleated Red Blood Cells % 0.1; Platelet Count 280 10^3/uL (150-450); Red Cell Distribution Width 14 % (10-15); White Blood Count 7.7 10^3/uL (3.5-10.8)
[2019-12-21 09:20] LABS: Urine Appearance Cloudy; Urine Bilirubin Negative (Negative); Urine Blood 3+ (Negative); Urine Glucose Negative (Negative); Urine Ketones Negative (Negative); Urine Nitrite Positive (Negative); Urine Protein 2+(100 mg/dL) (Negative); Urine Specific Gravity 1.006 (1.010-1.030); Urine Urobilinogen Negative (Negative)
[2019-12-21 09:23] LABS: BUN/Creatinine Ratio 16.4 (8-20); Calcium 9.6 mg/dL (8.6-10.3); EGFR African American 73.1 (>60); EGFR Non-African American 60.4 (>60); Potassium 4.9 mmol/L (3.5-5.0)
[2019-12-21 09:23] LABS: Urine Bacteria Absent (Absent); Urine Red Blood Cell 3+(>10/hpf) (Absent); Urine White Blood Cell 3+(>20/hpf) (Absent)
[2019-12-21 09:24] LABS: Urine Color Amber
[2019-12-21 10:28] VITALS: BP 134/81
--- NOTE | 2019-12-23 06:01 | ED ---
Imaging and Labs Follow Up Follow Up Type: Labs/Cultures Labs/Culture Result: Urine culture preliminary shows >100,000 Proteus Mirabilis. Patient Communication/Plan: awaiting sensitivities. Pt is to follow up with urology today. Provider Diagnoses: Stone catheter problem
== END | disposition home or self-care (01) ==
LOC: ED 06:45
DX: T83.098A Other mechanical complication of other urinary catheter, initial encounter (principal); B96.4 Proteus (mirabilis) (morganii) as the cause of diseases classified elsewhere; I25.2 Old myocardial infarction; Z95.5 Presence of coronary angioplasty implant and graft
CPT/HCPCS: 36415; 51702; 80048; 81003; 81015; 85025; 87077; 87086; 87186; 99283

== ENCOUNTER 2020-01-29 00:47 | Emergency (ER) | payer MEDICARE ==
--- NOTE | 2020-01-29 00:52 | ED ---
GI/ HPI - History of Current Complaint Chief Complaint: EDUrogenitalProblems Time Seen by Provider: 01/29/20 00:50 Stated Complaint: CATHER BLOCKAGE PER EMS Pain Intensity: 0 - Additional Pertinent History Primary Care Physician: [id number] - Allergy/Home Medications Allergies/Adverse Reactions: Allergies Allergy/AdvReac Type Severity Reaction Status Date / Time No Known Allergies Allergy Verified 12/21/19 06:46 Home Medications: Home Medications Aspirin 81 mg CHEW TAB* 81 mg PO DAILY 02/03/15 [History Confirmed 12/21/19] Pilocarpine 1% OPTH.KACIE* 1 drop LEFT EYE .EVERY 30 DAYS 02/03/15 [History Confirmed 12/21/19] Gabapentin 1,200 mg PO BID 07/17/18 [History Confirmed 12/21/19] Timolol 0.25% OPHTH.SOLN* [Timoptic Ophth.soln 0.25%*] 1 drop RIGHT EYE Q12HR [History Confirmed 12/21/19] Acetaminophen [Tylenol Extra Strength] 500 mg PO BEDTIME 09/19/19 [History Confirmed 12/21/19] Cyanocobalamin TAB* [Vitamin B12 TAB*] 1,000 mcg PO BID 09/19/19 [History Confirmed 12/21/19] Metoprolol Succinate XL TAB* [Toprol XL TAB*] 25 mg PO DAILY 09/19/19 [History Confirmed 12/21/19] Travoprost 0.004% (NF) [Travatan Z (NF)] 1 drop RIGHT EYE QPM 09/19/19 [History Confirmed 12/21/19] Tamsulosin CAP* [Flomax CAP*] 0.4 mg PO DAILY 12/21/19 [History Confirmed ] PMH/Surg Hx/FS Hx/Imm Hx Endocrine/Hematology History: Denies: Hx Anticoagulant Therapy, Hx Diabetes, Hx Thyroid Disease, Hx Anemia Cardiovascular History: Reports: Hx Coronary Artery Disease, Hx Hypercholesterolemia, Hx Myocardial Infarction Denies: Hx Angina, Hx Hypertension, Hx Pacemaker/ICD, Hx Peripheral Vascular Disease, Hx Syncope Comment Only: Other Cardiovascular Problems/Disorders - MO Respiratory History: Denies: Hx Asthma, Hx Chronic Obstructive Pulmonary Disease (COPD), Hx Lung Cancer, Hx Pulmonary Embolism GI History: Reports: Other GI Disorders - peptic ulcer disease Denies: Hx Gastroesophageal Reflux Disease History: Reports: Hx Benign Prostatic Hyperplasia Denies: Hx Renal Disease Comment Only: Other Problems/Disorders - urine retention Musculoskeletal History: Reports: Hx Back Problems Sensory History: Reports: Hx Contacts or Glasses, Hx Legally Blind - Rt eye, Hx Vision Problem - R eye blindness, Hx Hearing Problem Denies: Hx Cataracts, Hx Eye Injury, Hx Eye Prosthesis, Hx Glaucoma, Hx Macular Degeneration, Hx Deafness, Hx Hearing Aid, Other Sensory Impairments Opthamlomology History: Reports: Hx Contacts or Glasses, Hx Legally Blind - Rt eye, Hx Vision Problem - R eye blindness Denies: Hx Cataracts, Hx Eye Injury, Hx Eye Prosthesis, Hx Glaucoma, Hx Macular Degeneration, Other Sensory Impairments Neurological History: Reports: Hx Headaches Denies: Hx Dementia, Hx Developmental Delay, Hx Migraine, Hx Nerve Disease, Hx Seizures, Hx Spinal Cord Injury, Hx Transient Ischemic Attacks (TIA), Other Neuro Impairments/Disorders Psychiatric History: Denies: Hx Panic Disorder - Surgical History Surgery Procedure, Year, and Place: [place] WITH STENT. MULTIPLE HERNIA REPAIRS, left side rib repair,. right femur rodding Hx Anesthesia Reactions: No Infectious Disease History: No Infectious Disease History: Denies: Hx Clostridium Difficile, Hx Hepatitis, Hx Human Immunodeficiency Virus (HIV), Hx of Known/Suspected MRSA, Hx Shingles, Hx Tuberculosis, Hx Known/ Suspected VRE, Traveled Outside the [place] in Last 30 Days - Family History Known Family History: Positive: Cardiac Disease, Hypertension - Social History Alcohol Use: None Hx Substance Use: No Substance Use Type: Reports: None Hx Tobacco Use: No Smoking Status (MU): Never Smoked Tobacco Physical Exam Vital Signs On Initial Exam: Initial Vitals Temp Pulse Resp BP Pulse Ox 97.8 F 74 20 169/105 94 01/29/20 00:48 01/29/20 00:48 01/29/20 00:48 01/29/20 00:48 01/29/20 00:48 Diagnostics - Vital Signs Vital Signs Temp Pulse Resp BP Pulse Ox 01/29/20 00:48 97.8 F 74 20 169/105 94 - Laboratory Lab Statement: Any lab studies that have been ordered have been reviewed, and results considered in the medical decision making process. Discharge ED - Discharge Plan Referrals: Mariusz Freeman MD [Primary Care Provider] -
--- NOTE | 2020-01-29 01:24 | ED ---
GI/ HPI - HPI Summary HPI Summary: 79 year old M presenting to [facility] via EMS with a chief complaint of a clogged catheter since 2129 on 01/28/2020. The patient states seeing red, sand-like particles in his catheter. The patient states that he is due for a catheter change next week, which will be his 4th week with his current catheter. He states that he has a catheter due to an enlarged prostate, preventing him from urinating normally. He states that he has some pain in his bladder area. Patient denies N/V and denies a fever. He has a history of abdominal surgeries done in the 1940s. Home Medications Medication Instructions Recorded Confirmed Type Aspirin 81 mg CHEW TAB* 81 mg PO DAILY 02/03/15 12/21/19 History Pilocarpine 1% OPTH.KACIE* 1 drop LEFT EYE .EVERY 30 DAYS 02/03/15 12/21/19 History Gabapentin 1,200 mg PO BID 07/17/18 12/21/19 History Timolol 0.25% OPHTH.SOLN* 1 drop RIGHT EYE Q12HR 07/19/18 12/21/19 History [Timoptic Ophth.soln 0.25%*] Acetaminophen [Tylenol Extra 500 mg PO BEDTIME 09/19/19 12/21/19 History Strength] Cyanocobalamin TAB* [Vitamin B12 1,000 mcg PO BID 09/19/19 12/21/19 History TAB*] Metoprolol Succinate XL TAB* 25 mg PO DAILY 09/19/19 12/21/19 History [Toprol XL TAB*] Travoprost 0.004% (NF) [Travatan Z 1 drop RIGHT EYE QPM 09/19/19 12/21/19 History (NF)] Tamsulosin CAP* [Flomax CAP*] 0.4 mg PO DAILY 12/21/19 12/21/19 History - History of Current Complaint Chief Complaint: EDUrogenitalProblems Time Seen by Provider: 01/29/20 00:50 Stated Complaint: CATHETER BLOCKAGE PER EMS Hx Obtained From: Patient Timing: Lasting Hours - Since 2129 on 01/28/2020. Pain Intensity: 0 Location of Pain: Suprapubic - Patient states he has some pain in his bladder area. Associated Signs and Symptoms: Positive: Other: - Patient states seeing red sand -like particles in his catheter. - Additional Pertinent History Primary Care Physician: [id number] - Allergy/Home Medications Allergies/Adverse Reactions: Allergies Allergy/AdvReac Type Severity Reaction Status Date / Time No Known Allergies Allergy Verified 12/21/19 06:46 Home Medications: Home Medications Aspirin 81 mg CHEW TAB* 81 mg PO DAILY 02/03/15 [History Confirmed 12/21/19] Pilocarpine 1% OPTH.KACIE* 1 drop LEFT EYE .EVERY 30 DAYS 02/03/15 [History Confirmed 12/21/19] Gabapentin 1,200 mg PO BID 07/17/18 [History Confirmed 12/21/19] Timolol 0.25% OPHTH.SOLN* [Timoptic Ophth.soln 0.25%*] 1 drop RIGHT EYE Q12HR [History Confirmed 12/21/19] Acetaminophen [Tylenol Extra Strength] 500 mg PO BEDTIME 09/19/19 [History Confirmed 12/21/19] Cyanocobalamin TAB* [Vitamin B12 TAB*] 1,000 mcg PO BID 09/19/19 [History Confirmed 12/21/19] Metoprolol Succinate XL TAB* [Toprol XL TAB*] 25 mg PO DAILY 09/19/19 [History Confirmed 12/21/19] Travoprost 0.004% (NF) [Travatan Z (NF)] 1 drop RIGHT EYE QPM 09/19/19 [History Confirmed 12/21/19] Tamsulosin CAP* [Flomax CAP*] 0.4 mg PO DAILY 12/21/19 [History Confirmed ] PMH/Surg Hx/FS Hx/Imm Hx Endocrine/Hematology History: Denies: Hx Anticoagulant Therapy, Hx Diabetes, Hx Thyroid Disease, Hx Anemia Cardiovascular History: Reports: Hx Coronary Artery Disease, Hx Hypercholesterolemia, Hx Myocardial Infarction Denies: Hx Angina, Hx Hypertension, Hx Pacemaker/ICD, Hx Peripheral Vascular Disease, Hx Syncope Comment Only: Other Cardiovascular Problems/Disorders - NV Respiratory History: Denies: Hx Asthma, Hx Chronic Obstructive Pulmonary Disease (COPD), Hx Lung Cancer, Hx Pulmonary Embolism GI History: Reports: Other GI Disorders - peptic ulcer disease Denies: Hx Gastroesophageal Reflux Disease History: Reports: Hx Benign Prostatic Hyperplasia Denies: Hx Renal Disease Comment Only: Other Problems/Disorders - urine retention Musculoskeletal History: Reports: Hx Back Problems Sensory History: Reports: Hx Contacts or Glasses, Hx Legally Blind - Rt eye, Hx Vision Problem - R eye blindness, Hx Hearing Problem Denies: Hx Cataracts, Hx Eye Injury, Hx Eye Prosthesis, Hx Glaucoma, Hx Macular Degeneration, Hx Deafness, Hx Hearing Aid, Other Sensory Impairments Opthamlomology History: Reports: Hx Contacts or Glasses, Hx Legally Blind - Rt eye, Hx Vision Problem - R eye blindness Denies: Hx Cataracts, Hx Eye Injury, Hx Eye Prosthesis, Hx Glaucoma, Hx Macular Degeneration, Other Sensory Impairments Neurological History: Reports: Hx Headaches Denies: Hx Dementia, Hx Developmental Delay, Hx Migraine, Hx Nerve Disease, Hx Seizures, Hx Spinal Cord Injury, Hx Transient Ischemic Attacks (TIA), Other Neuro Impairments/Disorders Psychiatric History: Denies: Hx Panic Disorder - Surgical History Surgery Procedure, Year, and Place: [place] WITH STENT. MULTIPLE HERNIA REPAIRS, left side rib repair,. right femur rodding Hx Anesthesia Reactions: No Infectious Disease History: No Infectious Disease History: Denies: Hx Clostridium Difficile, Hx Hepatitis, Hx Human Immunodeficiency Virus (HIV), Hx of Known/Suspected MRSA, Hx Shingles, Hx Tuberculosis, Hx Known/ Suspected VRE, Traveled Outside the [place] in Last 30 Days - Family History Known Family History: Positive: Cardiac Disease, Hypertension - Social History Alcohol Use: None Hx Substance Use: No Substance Use Type: Reports: None Hx Tobacco Use: No Smoking Status (MU): Never Smoked Tobacco Review of Systems Negative: Fever Negative: Vomiting, Nausea Genitourinary: Other - positive - clogged catheter Positive: pain - Some suprapubic pain. All Other Systems Reviewed And Are Negative: Yes Physical Exam - Summary Physical Exam Summary: Constitutional: Well-developed, Well-nourished, Alert. (-) Distressed Skin: Warm, Dry HENT: Normocephalic; Atraumatic Eyes: Conjunctiva normal Neck: Musculoskeletal ROM normal neck. (-) JVD, (-) Stridor, (-) Tracheal deviation Cardio: Rhythm regular, rate normal, Heart sounds normal; Intact distal pulses; The pedal pulses are 2+ and symmetric. Radial pulses are 2+ and symmetric. (-) Murmur Pulmonary/Chest wall: Effort normal. (-) Respiratory distress, (-) Wheezes, (-) Rales Abd: Soft, (+) mild suprapubic tenderness, (-) Distension, (-) Guarding, (-) Rebound. Clogged catheter noted. Musculoskeletal: (-) Edema Lymph: (-) Cervical adenopathy Neuro: Alert, Oriented x3 Psych: Mood and affect Normal Triage Information Reviewed: Yes Vital Signs On Initial Exam: Initial Vitals Temp Pulse Resp BP Pulse Ox 97.8 F 74 20 169/105 94 01/29/20 00:48 01/29/20 00:48 01/29/20 00:48 01/29/20 00:48 01/29/20 00:48 Vital Signs Reviewed: Yes Procedures - Sedation Patient Received Moderate/Deep Sedation with Procedure: No Diagnostics - Vital Signs Vital Signs Temp Pulse Resp BP Pulse Ox 01/29/20 00:48 97.8 F 74 20 169/105 94 - Laboratory Lab Statement: Any lab studies that have been ordered have been reviewed, and results considered in the medical decision making process. GIGU Course/Dx - Course Course Of Treatment: Patient presented to [facility] with a chief complaint of a clogged catheter since 2129 on 01/28/2020. He states seeing red sand like particles in his catheter. The patient states that he is due for a catheter change next week, which will be his 4th week with his current catheter. He states that he has a catheter due to an enlarged prostate, preventing him from urinating normally. He states that he has some pain in his bladder. The patient was positive for mild suprapubic tenderness. The patient was provided with a catheter replacement and patient education on how to care for a wilkins catheter. He was discharged to home with a primary care physician followup within 3 days. - Diagnoses Provider Diagnoses: Encounter for Wilkins catheter replacement Discharge ED - Sign-Out/Discharge Documenting (check all that apply): Patient Departure - Discharge Plan Condition: Stable Disposition: HOME Patient Education Materials: Wilkins Catheter Placement and Care (ED) Referrals: Mariusz Freeman MD [Primary Care Provider] - 3 Days Additional Instructions: Please return to the ED for any new or worsening symptoms. Please followup with primary care physician within 3 days. - Billing Disposition and Condition Condition: STABLE Disposition: Home - Attestation Statements Document Initiated by Scribe: Yes Documenting Scribe: Rosanna Chamorro and Tiago Petty Provider For Whom Scribe is Documenting (Include Credential): Huan Hopper, Scribe Attestation: Rosanna Isbellua and Tiago Petty, scribed for Huan Hopper DO on at 0402. Scribe Documentation Reviewed: Yes Provider Attestation: The documentation as recorded by the scribe, Rosanna Chamorro and Tiago Petty accurately reflects the service I personally performed and the decisions made by , Huan Hopper DO Status of Scribe Document: Viewed
[2020-01-29 01:36] VITALS: BP 157/123
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
== END 2020-01-29 02:49 | disposition home or self-care (01) ==
LOC: ED 00:47
DX: T83.098A Other mechanical complication of other urinary catheter, initial encounter (principal); N40.0 Benign prostatic hyperplasia without lower urinary tract symptoms; R51 Headache; K27.9 Peptic ulcer, site unspecified, unspecified as acute or chronic, without hemorrhage or perforation; I25.10 Atherosclerotic heart disease of native coronary artery without angina pectoris; E78.00 Pure hypercholesterolemia, unspecified; I25.2 Old myocardial infarction; Z79.82 Long term (current) use of aspirin; Z79.899 Other long term (current) drug therapy; Z95.5 Presence of coronary angioplasty implant and graft
CPT/HCPCS: 99282

== ENCOUNTER 2020-11-08 13:04 | Inpatient (IN) ==
[2020-11-08 13:52] LABS: ABS Lymphocytes 1.2 10^3/ul (1.0-4.8); ABS Monocytes 0.6 10^3/ul (0-0.8); ABS Neutrophils 5.5 10^3/ul (1.5-7.7); Eosinophil % 0.3 %; Hematocrit 50 % (42-52); Lymphocyte % 16.5 %; Mean Corpuscular HGB Conc 34 g/dL (31-36); Mean Corpuscular Hemoglobin 32 pg (27-31); Mean Corpuscular Volume 95 fL (80-94); Mean Platelet Volume 7.8 fL (7.4-10.4); Nucleated Red Blood Cells % 0.1; Platelet Count 278 10^3/uL (150-450); Red Blood Count 5.28 10^6 /uL (4.18-5.48); Red Cell Distribution Width 14 % (10-15); White Blood Count 7.4 10^3/uL (3.5-10.8)
[2020-11-08 13:52] LABS: Urine Appearance Turbid; Urine Bilirubin Negative (Negative); Urine Blood 2+ (Negative); Urine Color Amber; Urine Glucose Negative (Negative); Urine Ketones 1+ (Negative); Urine Nitrite Negative (Negative); Urine Protein 2+(100 mg/dL) (Negative); Urine Specific Gravity 1.017 (1.010-1.030); Urine Urobilinogen Negative (Negative)
[2020-11-08 14:01] LABS: Urine Bacteria Absent (Absent); Urine Calcium Phosphate Cryst Present (Absent); Urine Red Blood Cell 3+(>10/hpf) (Absent); Urine White Blood Cell 3+(>20/hpf) (Absent)
[2020-11-08 14:12] LABS: ALT 12 U/L (7-52); AST 12 U/L (13-39); Albumin 4.4 g/dL (3.2-5.2); Albumin/Globulin Ratio 1.3 (1-3); Alkaline Phosphatase 99 U/L (34-104); Anion Gap 9 mmol/L (2-11); BUN/Creatinine Ratio 17.3 (8-20); Blood Urea Nitrogen 19 mg/dL (6-24); C Reactive Protein 1.33 mg/L (<8.01); CO2 Carbon Dioxide 27 mmol/L (22-32); Calcium 10.4 mg/dL (8.6-10.3); Chloride 99 mmol/L (101-111); EGFR African American 77.5 (>60); EGFR Non-African American 64.1 (>60); Globulin 3.3 g/dL (2-4); Glucose 105 mg/dL (70-100); Lipase < 10 U/L (11.0-82.0); Magnesium 1.8 mg/dL (1.9-2.7); Sodium 135 mmol/L (135-145); Total Protein 7.7 g/dL (6.4-8.9)
[2020-11-08 14:13] LABS: Troponin I 0.01 ng/mL (<0.03)
[2020-11-08] MEDS ORDERED: Magnesium Sulfate 2 gm BAG 2 GM/50 ML BAG IVPB ONE (14:17)
[2020-11-08] MEDS ORDERED: Iohexol 300 (CONTRAST) 10 ML SDV IV ONE (14:56)
[2020-11-08] MEDS ORDERED: cefTRIAXone 1 gm/50 mL NS BAG 1 GM/50 ML BAG IV ONE (16:33)
[2020-11-08] MEDS ORDERED: Ondansetron 4 mg VIAL 2 MG/ML 2 ml VIAL IV PRN (19:34)
[2020-11-08] MEDS ORDERED: NS 0.9% 1000 ml BAG 1,000 ML IV SCH (19:45)
[2020-11-08] MEDS ORDERED: hydrALAZINE 20 mg/ml 1 ML Vial IV IV SLOW PU PRN (19:56)
[2020-11-08 20:30] LABS: TSH Ultra Thyroid Stim Horm 2.46 mcIU/mL (0.34-5.60)
[2020-11-08 20:41] LABS: Vitamin B12 751 pg/mL (180-914)
[2020-11-08 20:45] LABS: ABS Lymphocytes 1.1 10^3/ul (1.0-4.8); ABS Monocytes 0.8 10^3/ul (0-0.8); ABS Neutrophils 7.9 10^3/ul (1.5-7.7); Eosinophil % 0.3 %; Hematocrit 47 % (42-52); Hemoglobin 16.2 g/dL (14.0-18.0); Lymphocyte % 10.7 %; Mean Corpuscular HGB Conc 34 g/dL (31-36); Mean Corpuscular Hemoglobin 32 pg (27-31); Mean Corpuscular Volume 93 fL (80-94); Mean Platelet Volume 7.7 fL (7.4-10.4); Platelet Count 256 10^3/uL (150-450); Red Blood Count 5.06 10^6 /uL (4.18-5.48); Red Cell Distribution Width 14 % (10-15); White Blood Count 9.9 10^3/uL (3.5-10.8)
[2020-11-08 20:55] LABS: Activated Partial Thrombo Time 29.5 seconds (26.0-38.0); INR 1.13 (0.82-1.09)
[2020-11-08] MEDS ORDERED: Heparin 5000 UNITS/ML 1 mL VIAL SUBCUT SCH ×2 (22:00)
[2020-11-09] MEDS: Pantoprazole VIAL 40 MG VIAL IV SCH ×3 (01:46→20:01)
[2020-11-09 02:17] LABS: Hematocrit 47 % (42-52); Hemoglobin 16.3 g/dL (14.0-18.0)
[2020-11-09 06:13] LABS: INR 1.15 (0.82-1.09)
[2020-11-09 06:32] LABS: Albumin 3.9 g/dL (3.2-5.2); Albumin/Globulin Ratio 1.3 (1-3); BUN/Creatinine Ratio 19.6 (8-20); EGFR African American 84.6 (>60); EGFR Non-African American 69.9 (>60); Globulin 3.1 g/dL (2-4); Indirect Bilirubin 3.2 mg/dL (0.3-1.0); Potassium 3.7 mmol/L (3.5-5.0); Total Bilirubin 3.4 mg/dL (0.2-1.0)
[2020-11-09 17:39] LABS: Hematocrit 46 % (42-52); Hemoglobin 15.8 g/dL (14.0-18.0); Mean Corpuscular HGB Conc 34 g/dL (31-36); Mean Corpuscular Hemoglobin 33 pg (27-31); Mean Corpuscular Volume 95 fL (80-94); Mean Platelet Volume 7.6 fL (7.4-10.4); Platelet Count 250 10^3/uL (150-450); Red Blood Count 4.85 10^6 /uL (4.18-5.48); Red Cell Distribution Width 14 % (10-15); White Blood Count 6.6 10^3/uL (3.5-10.8)
[2020-11-09] MEDS: Naphazoline/Pheniramine OPTH 5 ML BTL BOTH EYES SCH ×2 (17:50→20:01)
[2020-11-09] MEDS: cefTRIAXone 1 gm/50 mL NS BAG 1 GM/50 ML BAG IVPB SCH (19:24)
[2020-11-09] MEDS ORDERED: Heparin 5000 UNITS/ML 1 mL VIAL SUBCUT SCH (22:00)
[2020-11-10 06:48] LABS: HDL Cholesterol 31.3 mg/dL
[2020-11-10] MEDS: Pantoprazole VIAL 40 MG VIAL IV SCH ×2 (08:05→21:49)
[2020-11-10] MEDS: Naphazoline/Pheniramine OPTH 5 ML BTL BOTH EYES SCH ×4 (08:06→21:47)
[2020-11-10 11:28] LABS: ABS Eosinophils 0.2 10^3/ul (0-0.6); ABS Lymphocytes 1.1 10^3/ul (1.0-4.8); ABS Monocytes 0.6 10^3/ul (0-0.8); ABS Neutrophils 4.8 10^3/ul (1.5-7.7); Eosinophil % 2.4 %; Hematocrit 45 % (42-52); Hemoglobin 15.6 g/dL (14.0-18.0); Mean Corpuscular HGB Conc 35 g/dL (31-36); Mean Corpuscular Hemoglobin 33 pg (27-31); Mean Corpuscular Volume 95 fL (80-94); Mean Platelet Volume 7.7 fL (7.4-10.4); Platelet Count 231 10^3/uL (150-450); Red Blood Count 4.77 10^6 /uL (4.18-5.48); Red Cell Distribution Width 14 % (10-15); White Blood Count 6.8 10^3/uL (3.5-10.8)
[2020-11-10 11:43] LABS: Albumin 3.7 g/dL (3.2-5.2); Albumin/Globulin Ratio 1.3 (1-3); BUN/Creatinine Ratio 19.4 (8-20); Calcium 8.4 mg/dL (8.6-10.3); EGFR African American 79.2 (>60); EGFR Non-African American 65.5 (>60); Globulin 2.9 g/dL (2-4); Potassium 3.8 mmol/L (3.5-5.0); Total Bilirubin 3.1 mg/dL (0.2-1.0); Total Protein 6.6 g/dL (6.4-8.9)
[2020-11-10] MEDS: cefTRIAXone 1 gm/50 mL NS BAG 1 GM/50 ML BAG IVPB SCH (16:56)
[2020-11-11 05:43] LABS: ABS Eosinophils 0.2 10^3/ul (0-0.6); ABS Lymphocytes 1.5 10^3/ul (1.0-4.8); ABS Monocytes 0.6 10^3/ul (0-0.8); ABS Neutrophils 3.8 10^3/ul (1.5-7.7); Eosinophil % 3.4 %; Hematocrit 43 % (42-52); Hemoglobin 14.9 g/dL (14.0-18.0); Lymphocyte % 24.8 %; Mean Corpuscular HGB Conc 34 g/dL (31-36); Mean Corpuscular Hemoglobin 33 pg (27-31); Mean Corpuscular Volume 95 fL (80-94); Mean Platelet Volume 7.8 fL (7.4-10.4); Platelet Count 235 10^3/uL (150-450); Red Blood Count 4.56 10^6 /uL (4.18-5.48); Red Cell Distribution Width 14 % (10-15); White Blood Count 6.1 10^3/uL (3.5-10.8)
[2020-11-11 05:56] LABS: Albumin 3.5 g/dL (3.2-5.2); Albumin/Globulin Ratio 1.3 (1-3); BUN/Creatinine Ratio 21.7 (8-20); Calcium 8.2 mg/dL (8.6-10.3); EGFR African American 80.9 (>60); EGFR Non-African American 66.9 (>60); Globulin 2.8 g/dL (2-4); Potassium 3.7 mmol/L (3.5-5.0); Total Bilirubin 2.3 mg/dL (0.2-1.0); Total Protein 6.3 g/dL (6.4-8.9)
[2020-11-11] MEDS: Naphazoline/Pheniramine OPTH 5 ML BTL BOTH EYES SCH ×3 (09:51→16:33)
[2020-11-11] MEDS: Pantoprazole VIAL 40 MG VIAL IV SCH (09:55)
[2020-11-11 11:19] VITALS: BP 121/74
[2020-11-11] MEDS: cefTRIAXone 1 gm/50 mL NS BAG 1 GM/50 ML BAG IVPB SCH (16:33)
== END 2020-11-11 17:30 | disposition home or self-care (01) | DRG 700 ==
LOC: ED 13:04 → MED 13:04 → MEDTELE 11-09 00:50 → SSU 11-11 03:42
PROVIDERS: ADMIT Hospitalist; ATTEND Internal Medicine

== ENCOUNTER 2020-11-30 12:23 | Observation (INO) ==
[2020-11-30 14:22] LABS: ABS Basophils 0.1 10^3/ul (0-0.2); ABS Eosinophils 0.1 10^3/ul (0-0.6); ABS Lymphocytes 1.8 10^3/ul (1.0-4.8); ABS Monocytes 0.7 10^3/ul (0-0.8); ABS Neutrophils 5.5 10^3/ul (1.5-7.7); Eosinophil % 0.9 %; Hematocrit 49 % (42-52); Hemoglobin 16.7 g/dL (14.0-18.0); Lymphocyte % 21.6 %; Mean Corpuscular HGB Conc 34 g/dL (31-36); Mean Corpuscular Hemoglobin 32 pg (27-31); Mean Corpuscular Volume 95 fL (80-94); Mean Platelet Volume 7.4 fL (7.4-10.4); Nucleated Red Blood Cells % 0.1; Platelet Count 279 10^3/uL (150-450); Red Blood Count 5.16 10^6 /uL (4.18-5.48); Red Cell Distribution Width 14 % (10-15); White Blood Count 8.2 10^3/uL (3.5-10.8)
[2020-11-30 14:37] LABS: Urine Appearance Cloudy; Urine Bilirubin Negative (Negative); Urine Blood 2+ (Negative); Urine Color Amber; Urine Glucose Negative (Negative); Urine Ketones 1+ (Negative); Urine Nitrite Negative (Negative); Urine Protein 2+(100 mg/dL) (Negative); Urine Specific Gravity 1.025 (1.010-1.030); Urine Urobilinogen Negative (Negative)
[2020-11-30 14:40] LABS: Albumin 4.3 g/dL (3.2-5.2); Albumin/Globulin Ratio 1.3 (1-3); BUN/Creatinine Ratio 20.7 (8-20); C Reactive Protein 1.08 mg/L (<8.01); Calcium 10.1 mg/dL (8.6-10.3); EGFR African American 69.5 (>60); EGFR Non-African American 57.4 (>60); Globulin 3.3 g/dL (2-4); Potassium 4.9 mmol/L (3.5-5.0); Total Bilirubin 3.2 mg/dL (0.2-1.0); Total Protein 7.6 g/dL (6.4-8.9)
[2020-11-30 14:44] LABS: CKMB ng/mL 1.6 ng/mL (0.6-6.3)
[2020-11-30 14:50] LABS: Urine Bacteria Absent (Absent); Urine Red Blood Cell 3+(>10/hpf) (Absent); Urine Squamous Epithelial Cell Present (Absent); Urine White Blood Cell 3+(>20/hpf) (Absent)
[2020-11-30 15:29] LABS: Troponin I 0.01 ng/mL (<0.03)
[2020-11-30] MEDS ORDERED: NS 0.9% 1000 ml BAG 1,000 ML IV ONE (15:49)
[2020-11-30] MEDS ORDERED: NS 0.9% 1000 ml BAG 1,000 ML IV SCH (18:45)
[2020-11-30] MEDS ORDERED: Enoxaparin 40 MG/0.4 ML SYR SUBCUT SCH (19:00)
[2020-11-30] MEDS: Heparin 5000 UNITS/ML 1 mL VIAL SUBCUT SCH (22:10)
[2020-11-30] MEDS ORDERED: Ondansetron 4 mg VIAL 2 MG/ML 2 ml VIAL IV PRN (23:03)
[2020-12-01] MEDS: Heparin 5000 UNITS/ML 1 mL VIAL SUBCUT SCH ×2 (06:06→13:26)
[2020-12-01 06:09] LABS: ABS Eosinophils 0.1 10^3/ul (0-0.6); ABS Lymphocytes 1.6 10^3/ul (1.0-4.8); ABS Monocytes 0.6 10^3/ul (0-0.8); ABS Neutrophils 3.7 10^3/ul (1.5-7.7); Eosinophil % 2.1 %; Hematocrit 45 % (42-52); Hemoglobin 15.6 g/dL (14.0-18.0); INR 1.14 (0.82-1.09); Lymphocyte % 25.8 %; Mean Corpuscular HGB Conc 34 g/dL (31-36); Mean Corpuscular Hemoglobin 33 pg (27-31); Mean Corpuscular Volume 95 fL (80-94); Mean Platelet Volume 7.8 fL (7.4-10.4); Nucleated Red Blood Cells % 0.1; Platelet Count 251 10^3/uL (150-450); Red Blood Count 4.74 10^6 /uL (4.18-5.48); Red Cell Distribution Width 14 % (10-15)
[2020-12-01 06:23] LABS: BUN/Creatinine Ratio 19.6 (8-20); Calcium 8.6 mg/dL (8.6-10.3); EGFR African American 80.1 (>60); EGFR Non-African American 66.2 (>60); Potassium 3.9 mmol/L (3.5-5.0)
[2020-12-01] MEDS ORDERED: cefTRIAXone 1 gm/50 mL NS BAG 1 GM/50 ML BAG IVPB SCH (08:00)
[2020-12-01 08:29] LABS: Albumin 3.7 g/dL (3.2-5.2); Albumin/Globulin Ratio 1.4 (1-3); Globulin 2.7 g/dL (2-4); Total Bilirubin 3.4 mg/dL (0.2-1.0); Total Protein 6.4 g/dL (6.4-8.9)
[2020-12-01 13:36] VITALS: BP 110/75
[2020-12-01 13:48] LABS: Urine Appearance Cloudy; Urine Bilirubin Negative (Negative); Urine Blood 3+ (Negative); Urine Color Amber; Urine Glucose Negative (Negative); Urine Ketones Negative (Negative); Urine Nitrite Positive (Negative); Urine Protein 1+(30 mg/dL) (Negative); Urine Specific Gravity 1.025 (1.010-1.030); Urine Urobilinogen Negative (Negative)
[2020-12-01 14:00] LABS: Urine Bacteria Absent (Absent); Urine Red Blood Cell 3+(>10/hpf) (Absent); Urine Squamous Epithelial Cell Present (Absent); Urine White Blood Cell 3+(>20/hpf) (Absent)
[2020-12-05 15:03] LABS: Anaplasma phagocytophilum Negative (Negative); B garinii/B afzelii PCR Negative (Negative); B mayonii PCR Negative (Negative); B. miyamotoi PCR, B Negative (Negative); Babesia divergens/MO-1 Negative (Negative); Babesia ducani Negative (Negative); Ehrlichia chaffeensis Negative (Negative); Ehrlichia ewingii/canis Negative (Negative); Ehrlichia muris eauclairensis Negative (Negative)
== END 2020-12-01 17:15 | disposition home or self-care (01) ==
LOC: MED 12:23 → ED 12:23 → MED 21:21
PROVIDERS: ADMIT Student in an Organized Health Care Education/Training Program; ATTEND Internal Medicine

== ENCOUNTER 2021-12-10 12:40 | Observation (INO) ==
[2021-12-10 14:14] LABS: ABS Eosinophils 0.1 10^3/ul (0-0.6); ABS Lymphocytes 0.7 10^3/ul (1.0-4.8); ABS Monocytes 0.5 10^3/ul (0-0.8); ABS Neutrophils 6.8 10^3/ul (1.5-7.7); Eosinophil % 1.1 %; Hematocrit 46 % (42-52); Hemoglobin 15.5 g/dL (14.0-18.0); Lymphocyte % 8.3 %; Mean Corpuscular HGB Conc 33 g/dL (31-36); Mean Corpuscular Hemoglobin 32 pg (27-31); Mean Corpuscular Volume 97 fL (80-94); Mean Platelet Volume 7.3 fL (7.4-10.4); Platelet Count 318 10^3/uL (150-450); Red Blood Count 4.79 10^6 /uL (4.18-5.48); Red Cell Distribution Width 13 % (10-15)
[2021-12-10 14:22] LABS: INR 1.05 (0.86-1.15)
[2021-12-10 14:50] LABS: Troponin I 0.01 ng/mL (<0.03)
[2021-12-10 15:07] LABS: Albumin 3.9 g/dL (3.2-5.2); Albumin/Globulin Ratio 1.3 (1-3); Calcium 9.2 mg/dL (8.6-10.3); Globulin 3.1 g/dL (2-4); Potassium 4.2 mmol/L (3.5-5.0); Total Bilirubin 1.7 mg/dL (0.2-1.0); eGFR CKD-EPI 67.3 (>60)
[2021-12-10 15:28] LABS: Rapid COVID-19 Molecular Undetected (Undetected)
[2021-12-10] MEDS ORDERED: PILOCARPINE 1% LEFT EYE SCH (17:00)
[2021-12-10] MEDS ORDERED: OPTH LEFT EYE SCH (17:00)
[2021-12-10] MEDS ORDERED: Lactated Ringers 1000 ml BAG 1,000 ML IV SCH (17:00)
[2021-12-10 17:06] LABS: Magnesium 2.1 mg/dL (1.9-2.7)
[2021-12-10] MEDS: Timolol 0.25% OPHTH.SOLN BTL RIGHT EYE SCH ×2 (22:41→22:43)
[2021-12-10] MEDS: Latanoprost 0.005% 2.5 ml BTL RIGHT EYE SCH ×2 (22:42→22:44)
[2021-12-10] MEDS: Enoxaparin 40 MG/0.4 ML SYR SUBCUT SCH (22:42)
[2021-12-11 02:19] LABS: Urine Appearance Turbid; Urine Bilirubin Negative (Negative); Urine Blood 3+ (Negative); Urine Color Yellow; Urine Glucose Negative (Negative); Urine Ketones 1+ (Negative); Urine Nitrite Negative (Negative); Urine Protein 2+(100 mg/dL) (Negative); Urine Specific Gravity 1.015 (1.002-1.030); Urine Urobilinogen Negative (Negative)
[2021-12-11 02:38] LABS: Urine Bacteria Absent (Absent); Urine Red Blood Cell 3+(>10/hpf) (Absent); Urine White Blood Cell 3+(>20/hpf) (Absent)
[2021-12-11] MEDS: Timolol 0.25% OPHTH.SOLN BTL RIGHT EYE SCH (10:20)
[2021-12-11 16:44] VITALS: BP 142/90
[2021-12-11] MEDS: Enoxaparin 40 MG/0.4 ML SYR SUBCUT SCH (17:56)
== END 2021-12-11 19:30 | disposition home or self-care (01) ==
LOC: EDHOLD 12:40 → ED 12:40 → SUATTDRO 16:32 → EDHOLD 18:16 → MEDTELE 20:06
PROVIDERS: ADMIT Internal Medicine; ATTEND Hospitalist

== ENCOUNTER 2022-02-18 14:42 | Observation (INO) ==
[2022-02-18] MEDS ORDERED: Lactated Ringers 1000 ml BAG 1,000 ML IV ONE (16:33)
[2022-02-18 18:15] LABS: ABS Lymphocytes 0.5 10^3/ul (1.0-4.8); ABS Monocytes 0.5 10^3/ul (0-0.8); ABS Neutrophils 7.3 10^3/ul (1.5-7.7); Eosinophil % 0.1 %; Hematocrit 47 % (42-52); Hemoglobin 16.1 g/dL (14.0-18.0); Mean Corpuscular HGB Conc 34 g/dL (31-36); Mean Corpuscular Hemoglobin 33 pg (27-31); Mean Corpuscular Volume 95 fL (80-94); Mean Platelet Volume 7.6 fL (7.4-10.4); Platelet Count 213 10^3/uL (150-450); Red Blood Count 4.93 10^6 /uL (4.18-5.48); Red Cell Distribution Width 14 % (10-15); White Blood Count 8.3 10^3/uL (3.5-10.8)
[2022-02-18 19:06] LABS: Albumin/Globulin Ratio 1.3 (1-3); Calcium 9.9 mg/dL (8.6-10.3); Globulin 3.1 g/dL (2-4); Potassium 4.3 mmol/L (3.5-5.0); Total Bilirubin 3.6 mg/dL (0.2-1.0); Total Protein 7.1 g/dL (6.4-8.9)
[2022-02-18] MEDS ORDERED: Lidocaine 2% JELLY 6 ML TOPICAL PRN (23:25)
[2022-02-18] MEDS ORDERED: NS 0.9% 1000 ml BAG 1,000 ML IV SCH (23:30)
[2022-02-19 07:10] LABS: INR 1.18 (0.86-1.15)
[2022-02-19 07:45] LABS: Albumin 3.1 g/dL (3.2-5.2); Albumin/Globulin Ratio 1.1 (1-3); Calcium 8.5 mg/dL (8.6-10.3); Globulin 2.7 g/dL (2-4); Potassium 3.9 mmol/L (3.5-5.0); Total Bilirubin 2.5 mg/dL (0.2-1.0); Total Protein 5.8 g/dL (6.4-8.9); eGFR CKD-EPI 68.9 (>60)
[2022-02-19] MEDS ORDERED: Isosorbide Mononit ER 60mg TAB PO SCH (09:00)
[2022-02-19] MEDS ORDERED: Calcium Carb (TUMS) 500 mg CHEW TAB PO PRN (10:34)
[2022-02-20 05:09] LABS: ABS Lymphocytes 0.6 10^3/ul (1.0-4.8); ABS Monocytes 0.6 10^3/ul (0-0.8); ABS Neutrophils 4.8 10^3/ul (1.5-7.7); Eosinophil % 0.4 %; Hematocrit 39 % (42-52); Hemoglobin 13.4 g/dL (14.0-18.0); Lymphocyte % 9.8 %; Mean Corpuscular HGB Conc 34 g/dL (31-36); Mean Corpuscular Hemoglobin 33 pg (27-31); Mean Corpuscular Volume 95 fL (80-94); Mean Platelet Volume 7.8 fL (7.4-10.4); Platelet Count 174 10^3/uL (150-450); Red Blood Count 4.11 10^6 /uL (4.18-5.48); Red Cell Distribution Width 14 % (10-15); White Blood Count 5.9 10^3/uL (3.5-10.8)
[2022-02-20 06:03] LABS: Calcium 8.1 mg/dL (8.6-10.3); Potassium 3.8 mmol/L (3.5-5.0); eGFR CKD-EPI 71.2 (>60)
[2022-02-21 05:57] LABS: ABS Eosinophils 0.1 10^3/ul (0-0.6); ABS Lymphocytes 0.9 10^3/ul (1.0-4.8); ABS Monocytes 0.7 10^3/ul (0-0.8); ABS Neutrophils 4.3 10^3/ul (1.5-7.7); Eosinophil % 2.2 %; Hematocrit 38 % (42-52); Hemoglobin 13.1 g/dL (14.0-18.0); Lymphocyte % 14.4 %; Mean Corpuscular HGB Conc 35 g/dL (31-36); Mean Corpuscular Hemoglobin 33 pg (27-31); Mean Corpuscular Volume 95 fL (80-94); Mean Platelet Volume 7.6 fL (7.4-10.4); Platelet Count 187 10^3/uL (150-450); Red Blood Count 3.99 10^6 /uL (4.18-5.48); Red Cell Distribution Width 14 % (10-15)
[2022-02-21 06:28] LABS: Calcium 7.9 mg/dL (8.6-10.3); Potassium 3.6 mmol/L (3.5-5.0); eGFR CKD-EPI 80.4 (>60)
[2022-02-21] MEDS ORDERED: NS 0.9% 1000 ml BAG 500 ML IV ONE (14:45)
[2022-02-22] MEDS: Aspirin EC 81 mg TAB.EC (enteric coated) PO SCH (17:16)
[2022-02-22] MEDS: Enoxaparin 40 MG/0.4 ML SYR SUBCUT SCH (17:16)
[2022-02-22] MEDS ORDERED: Lidocaine 2% JELLY 6 ML TOPICAL ONE (17:20)
[2022-02-22] MEDS: Lidocaine 2% JELLY 6 ML TOPICAL SCH (21:01)
[2022-02-23] MEDS: Aspirin EC 81 mg TAB.EC (enteric coated) PO SCH (08:46)
[2022-02-23] MEDS: Lidocaine 2% JELLY 6 ML TOPICAL SCH ×3 (08:47→20:55)
[2022-02-23] MEDS: Enoxaparin 40 MG/0.4 ML SYR SUBCUT SCH (17:24)
[2022-02-24] MEDS: Aspirin EC 81 mg TAB.EC (enteric coated) PO SCH (09:30)
[2022-02-24] MEDS: Lidocaine 2% JELLY 6 ML TOPICAL SCH (09:31)
[2022-02-24 11:44] VITALS: BP 103/67
[2022-02-24 14:05] LABS: Rapid COVID-19 Molecular Undetected (Undetected)
== END 2022-02-24 13:50 ==
LOC: EDHOLD 14:42 → ED 14:42 → SUATTDRO 23:16 → EDHOLD 02-19 00:57 → SSU 02-19 01:19
PROVIDERS: ADMIT Hospitalist; ATTEND Internal Medicine